=== PATIENT | female | born 1945 | race Caucasian/White ===

== ENCOUNTER → 2017-07-31 07:43 | Outpatient (CLI) | payer MEDICARE, OTHER, SELFPAY ==
[2017-07-31 09:53] LABS: AST(SGOT) 12 U/L (15-37); Alanine Aminotransfer ALT/SGPT 13 U/L (13-56); Albumin, Serum 3.4 g/dL (3.2-5.0); Alkaline Phosphatase 81 U/L (45-117); Bilirubin, Direct 0.15 mg/dL (0.00-0.30); Cholesterol 143 mg/dL (200); Globulin 3.7 g/dL (2.2-4.2); High Density Lipoprotein 66 mg/dL; Protein, Total 7.1 g/dL (6.4-8.2); Triglycerides 99 mg/dL; Very Low Density Lipoprotein 20 mg/dL (5-40)
== END ==
PROVIDERS: Family Provider Family Medicine Geriatric Medicine; PCP Family Medicine Geriatric Medicine; Visit Provider Internal Medicine Cardiovascular Disease
DX: I25.10 Atherosclerotic heart disease of native coronary artery without angina pectoris (principal); E78.5 Hyperlipidemia, unspecified
CPT/HCPCS: 36415; 80061; 80076

== ENCOUNTER → 2017-10-30 15:37 | Outpatient (CLI) | payer MEDICARE, OTHER, SELFPAY ==
--- NOTE | 2017-10-30 15:42 | BD_ITS ---
STUDY: DUAL ENERGY X-RAY ABSORPTIOMETRY / DXA REASON FOR EXAM: Female, 72 years old. Early menopause. Loss of height. TECHNIQUE: Bone Mineral Density (BMD) measurements of lumbar spine and bilateral hips were obtained. COMPARISON: Comparison is made with prior study dated October 26, 2015. FINDINGS: Lumbar Spine (L1-L4): g/cm2 (1.142) / T-score (-0.3) / Z-score (1.4) Findings are suggestive of normal bone density with a low fracture risk. Left Femur Total: g/cm2 (0.760) / T-score (-2.0) / Z-score (-0.5) Left Femoral Neck: g/cm2 (0.779) / T-score (-1.9) / Z-score (-0.1) Right Femur Total: g/cm2 (0.81) / T-score (-1.6) / Z-score (-0.1) Right Femoral Neck: g/cm2 (0.783) / T-score (-1.8) / Z-score (-0.1) The T-Scores on the most recent prior examination were: Lumbar Spine (L1-L4): There has been worsening of bone density since the previous examination. Left Femur Total: which represents a worsening of 4.2%. Right Femur Total: which represents a worsening of 0.7%. BD/Dexa Bone Density Study IMPRESSION: The patient is considered osteopenic as outlined below according to World Devan Organization (WHO) criteria with a moderate fracture risk. There has been worsening of bone density since the previous examination. Reference Information: The T-score is the number of standard deviations above or below the standard which is normal for young adults at their peak bone mineral density. The World Health Organization (WHO) interprets the T-scores as follows: Above -1 Normal bone density Between -1 and -2.5 Osteopenia Equal to / or below -2.5 Osteoporosis As a practical clinical guideline, osteopenia may be graded as follows: Mild -1 through -1.5 Moderate -1.6 through -2.0 Severe -2.1 through -2.4 The Z-score is the number of standard deviations above or below age-matched controls. A Z-score of less than -1.5 would be considered abnormal. References: 1. NIH Osteoporosis and Related Bone Diseases http://www.osteo.org 2. International Society for Clinical Densitometry http://www.iscd.org 3. National Osteoporosis Foundation http://www.nof.org Electronically Signed: Ray Marroquin MD at 15:08 EDT Tel [phone], Service support ,
== END ==
PROVIDERS: Family Provider Family Medicine Geriatric Medicine; PCP Family Medicine Geriatric Medicine; Visit Provider Family Medicine Geriatric Medicine
DX: Z78.0 Asymptomatic menopausal state (principal)
CPT/HCPCS: 77080

== ENCOUNTER → 2018-09-05 09:13 | Outpatient (CLI) | payer MEDICARE, OTHER, SELFPAY ==
[2018-09-05 12:40] LABS: Absolute Lymphocyte Count 1.75 X10^3/ul (0.83-4.51); Absolute Neutrophil Count 3.5 X10^3/uL (2.0-7.7); Basophil# 0.02 X10^3/uL; Basophil% 0.3 % (0-1); Eosinophil# 0.12 X10^3/uL; Eosinophils% 2.1 % (0-5); Hematocrit 40.3 % (37-47); Hemoglobin 12.8 g/dl (12.0-15.0); Lymphocyte # 1.75 X10^3/ul (4.0); Mean Corp Hgb Conc 31.8 g/gl (32-36); Mean Corpuscular Hgb 29.9 pg (27.0-32.0); Mean Corpuscular Volume 94.2 fL (81-99); Mean Platelet Vol. 11.4 fl (6.2-12.0); Monocyte# 0.45 X10^3/uL; Monocyte% 7.7 % (0-10); Neutrophil # 3.48 X10^3/uL (2.7-7.7); Neutrophil % 59.7 % (47-70); Platelet Count 230 K/mm3 (150-450); RBC Distribution Width SD 43.3 fl (35.1-43.9); Red Blood Count 4.28 M/mm3 (4.2-5.4); White Blood Count 5.8 K/mm3 (4.4-11.0)
[2018-09-05 12:44] LABS: POSITIVE COUNT NO; POSITIVE DIFFERENTIAL NO; POSITIVE MORPHOLOGY NO
[2018-09-05 13:23] LABS: ALB/GLOB Ratio 0.9 RATIO (0.9-2.4); AST(SGOT) 15 U/L (15-37); Alanine Aminotransfer ALT/SGPT 17 U/L (13-56); Albumin, Serum 3.3 g/dL (3.2-5.0); Alkaline Phosphatase 84 U/L (45-117); Anion Gap 5 (5-15); BUN 12 mg/dL (7-18); BUN/Creat Ratio 18.6 RATIO (10-20); Calcium,Total 8.5 mg/dL (8.5-10.1); Chloride 109 mmol/L (98-107); Creatinine, Serum 0.64 mg/dL (0.55-1.02); EST Glomerular Filtration Rate 96 mL/min (>60); Est Glom Filt Rate - Afr Amer 117 mL/min (>60); Globulin 3.6 g/dL (2.2-4.2); Glucose 91 mg/dL (74-106); Potassium 4.6 mmol/L (3.5-5.1); Protein, Total 6.9 g/dL (6.4-8.2); Sodium Level 141 mmol/L (136-145); Thyroid Stim Hormone (TSH) 1.02 uIU/mL (0.358-3.74)
== END ==
PROVIDERS: Family Provider Family Medicine Geriatric Medicine; PCP Family Medicine Geriatric Medicine; Visit Provider Family Medicine Geriatric Medicine
DX: E55.9 Vitamin D deficiency, unspecified (principal); I10 Essential (primary) hypertension
CPT/HCPCS: 36415; 80053; 82306; 84443; 85025

== ENCOUNTER → 2018-10-21 15:52 | Outpatient (CLI) | payer MEDICARE, OTHER, SELFPAY ==
[2018-10-21 18:00] LABS: Internal QC Validated? YES +Cl - CLEAR BKGD; Monotest Negative (Negative)
[2018-10-24 08:03] LABS: Mumps Antibody, IgM < 0.80 AU (0.00-0.79); Mumps Antibody,IgG 15.7 AU/mL (Immune >10.9)
== END ==
PROVIDERS: Family Provider Family Medicine Geriatric Medicine; PCP Family Medicine Geriatric Medicine; Visit Provider Family Medicine Geriatric Medicine
DX: M79.10 Myalgia, unspecified site (principal); R53.83 Other fatigue
CPT/HCPCS: 36415; 86308; 86735

== ENCOUNTER → 2018-10-21 16:58 | Outpatient (CLI) | payer MEDICARE, OTHER, SELFPAY ==
--- NOTE | 2018-10-21 17:02 | CT_ITS ---
STUDY: CT SOFT TISSUE NECK WITH CONTRAST REASON FOR EXAM: Female, 73 years old. Cervical lymphadenopathy RADIATION DOSAGE (If Supplied By Facility): CTDIvol = ( 18.55 ) mGy, DLP = ( 583.60 ) mGycm TECHNIQUE: The patient was scanned in a multi-detector CT scanner. High resolution transaxial imaging was performed following intravenous administration of 100mL IV Isovue 300. Sagittal and coronal images were reconstructed. Individualized dose optimization techniques were used for this CT. COMPARISON: None. FINDINGS: There is a 7.2 x 6.5 x 9.4 cm heterogenous soft tissue mass with central calcifications arising from the left lobe of the thyroid gland. There is left to right mass effect on the trachea. There is mass effect on the left common carotid artery and left internal jugular vein. The mass extends into the presacral space at C4-T1 and into the superior mediastinum left of midline. There is a well-circumscribed low-attenuation focus within the right lobe of the thyroid measuring 1.6 x 0.7 x 2.1 cm which may reflect underlying cysts. Normal bilateral parotid glands. Normal bilateral property custodian spaces. Normal bilateral parapharyngeal spaces. The visualized cervical lymph nodes (levels I-) are within normal size limits, and maintain normal morphology. There is no abnormal contrast enhancement. There are peripheral calcifications of the aortic arch and its branches. Normal visualized paranasal sinuses. There is multilevel degenerative changes of the cervical spine. CT/Soft Tissue Neck WITH Contrast IMPRESSION: 7.2 x 6.5 x 9.4 cm soft tissue mass arising from the left lobe of the thyroid gland with mass effect on the trachea. Atherosclerosis. Electronically Signed: Sheron Stevens MD at 17:44 EDT Tel , Service support ,
[2018-10-21 17:26] LABS: CREATININE FINGERSTICK 0.8 mg/dL (0.55-1.02); EGFR FINGERSTICK > 60.0000 mL/min (>60)
== END ==
PROVIDERS: Family Provider Family Medicine Geriatric Medicine; PCP Family Medicine Geriatric Medicine; Referring Provider Family Medicine Geriatric Medicine; Visit Provider Family Medicine Geriatric Medicine
DX: R59.9 Enlarged lymph nodes, unspecified (principal); M79.10 Myalgia, unspecified site; R53.83 Other fatigue
CPT/HCPCS: 36415; 70491; 86308; 86735; Q9967

== ENCOUNTER → 2018-10-22 12:13 | Outpatient (CLI) | payer MEDICARE, OTHER, SELFPAY ==
[2018-10-22 13:18] LABS: T3 Uptake 32 % (30-39); T4 Free Direct 1.05 ng/dL (0.76-1.46); Thyroid Stim Hormone (TSH) 0.54 uIU/mL (0.358-3.74)
== END ==
PROVIDERS: Family Provider Family Medicine Geriatric Medicine; PCP Family Medicine Geriatric Medicine; Visit Provider Family Medicine Geriatric Medicine
DX: E04.9 Nontoxic goiter, unspecified (principal)
CPT/HCPCS: 36415; 84439; 84443; 84479

== ENCOUNTER → 2018-10-24 06:30 | Outpatient (CLI) | payer MEDICARE, OTHER, SELFPAY ==
--- NOTE | 2018-10-24 | FLU_PTH ---
PATIENT: PADMINI GOYAL LOC: [facility] U#:[id number] AGE/SX: 79/F ROOM: RE10/24/[address]: Dr. Josué Villa MD : 1945 BED: DIS: SPEC #: [id number] RECD: 10/24/18 17:40 STATUS: KORIN MARIANNE #: [id number] HALIE: 10/24/18 00:[address]: Josué Villa DEPT: CYTOLOGY RECD BY: Diana Miller ENTERED: 10/25/18 11:22 SP TYPE: Fluid OTHR DR: Dr. Nakul Corbin MD Tissues: Thyroid gland, NOS Procedures: Special Stain Group II Surgery Specimen Level IV Cytospin Fluid HEADER OPERATION: Left neck, thyroid mass PRE-OP DIAGNOSIS: Rapidly growing thyroid mass; consider anaplastic thyroid versus cystic papillary cancer TISSUE SUBMITTED: Left side of neck, thyroid mass DIAGNOSIS CYTOLOGY Left side of neck, thyroid mass, FNA (cytospin and cell block): A few follicular cells with Hurthle cell change and macrophages are noted. See comment. SJ:alexandre 10/28/18 COMMENT The cell block is paucicellular. The specimen is limited in evaluation due to lack of adequate number of follicular cells. Correlation with clinical, radiologic findings and appropriate follow up are necessary. Rebiopsy or excision of the lesion is suggested if clinically indicated. Case has been reviewed in consultation with Dr. Tilley who concurs with the above diagnosis. IDC:AM CYTOLOGY STUDY Slides are reviewed. CYTOLOGY GROSS Received is 50 ml of red cloudy fluid labeled with the patient's name and and designated per the requisition as thyroid mass. Submitted for cytology preparation including cell block. /CC:cc 10/25/18 TC:5 CPT: 82138, 54963
== END ==
PROVIDERS: Family Provider Family Medicine Geriatric Medicine; PCP Family Medicine Geriatric Medicine; Visit Provider Otolaryngology
DX: E04.1 Nontoxic single thyroid nodule (principal)
CPT/HCPCS: 88108; 88305; 88313

== ENCOUNTER → 2018-11-12 08:24 | Outpatient (CLI) | payer MEDICARE, OTHER, SELFPAY ==
[2018-11-11 10:42] VITALS: BMI 32.3
--- NOTE | 2018-11-12 08:25 | ECHOCS_ITS ---
Reason For Study: PRE-OPERATIVE Procedure This was a 2D Doppler, Color Flow transthoracic echocardiogram. Exam performed in department. Left Ventricle Normal size and thickness. The estimated ejection fraction is 65 %. Stage 1 diastolic dysfunction. No regional wall motion abnormalities noted. Right Ventricle Normal size and thickness. Normal systolic function. Atria Normal left atrium. Normal right atrium. Normal atrial septum. Mitral Valve The mitral valve is structurally normal. No prolapse or stenosis seen. Tricuspid Valve Normal tricuspid valve. Trivial tricuspid valve insufficiency. Right ventricular systolic pressure estimated to be 25 mmHg. Aortic Valve Mild diffuse aortic valve thickening. Mild (1+) aortic valve insufficiency. Pulmonic Valve Normal pulmonic valve. Trivial pulmonic valve insufficiency. Great Vessels Normal aortic root. Normal arch. Normal inferior vena cava. Inferior vena cava collapse with sniff. Pericardium/Pleural No pericardial effusion. Medication 22 gauge I.V. with prn adaptor inserted into right arm. Diluted definity 5ml given slow IV push to enhance endocardial definition. MMode/2D Measurements & Calculations LVIDd: 4.7 cm IVSd: 0.79 cm Ao root diam: 3.2 cm LVIDs: 3.3 cm LVPWd: 0.94 cm RVDd: 3.4 cm FS: 30.9 % LAV(MOD-bp): 46.4 ml LVAd ap4: 31.8 cm2 SV(MOD-sp4): 64.8 ml LAV(MOD-bp) Indexed: 24.3 ml/m2 EDV(MOD-sp4): 111.3 ml LAV(MOD-sp2): 43.3 ml EDV(sp4-el): 113.9 ml LAV(MOD-sp4): 47.7 ml LVAs ap4: 18.1 cm2 ESV(MOD-sp4): 46.5 ml ESV(sp4-el): 47.1 ml EF(MOD-sp4): 58.2 % EF(sp4-el): 58.6 % SV(sp4-el): 66.8 ml LA A4 area: 17.8 cm2 LA dimension(2D): 4.0 cm RA A4 area: 15.5 cm2 Time Measurements MV dec time: 0.18 sec Doppler Measurements & Calculations MV E max [place]: 67.5 cm/sec Lat Peak E' [place]: 10.1 cm/sec Med Peak E' [place]: 8.6 cm/sec MV A max [place]: 77.8 cm/sec E/E' lat: 6.7 E/E' med: 7.8 MV E/A: 0.87 Ao V2 max: 140.0 cm/sec AI max [place]: 439.2 cm/sec LV V1 max: 96.4 cm/sec Ao max P.8 mmHg AI max P.2 mmHg LV V1 max P.7 mmHg AI dec slope: 237.5 cm/sec2 AI P1/2t: 541.6 msec PA V2 max: 99.8 cm/sec TR max [place]: 221.9 cm/sec TR max P.7 mmHg Interpretation Summary The estimated ejection fraction is 65 %. Stage 1 diastolic dysfunction. Trivial tricuspid valve insufficiency. Right ventricular systolic pressure estimated to be 25 mmHg. Mild (1+) aortic valve insufficiency. Compared to echo report dated 09/14/2016, no appreciable changes noted. The study was technically difficult. Contrast injection was performed. Ordering Physician: Jamil Massey Referring Physician: LINDSAY LAMBERT Performed By: Marie Lozano RDCS
== END ==
PROVIDERS: Family Provider Family Medicine Geriatric Medicine; PCP Family Medicine Geriatric Medicine; Referring Provider Internal Medicine Cardiovascular Disease; Visit Provider Internal Medicine Cardiovascular Disease
DX: Z01.810 Encounter for preprocedural cardiovascular examination (principal); I25.10 Atherosclerotic heart disease of native coronary artery without angina pectoris; I47.2 Ventricular tachycardia; Z95.1 Presence of aortocoronary bypass graft
CPT/HCPCS: 93306; Q9957; A4216; C8929

== ENCOUNTER → 2018-11-15 13:27 | Outpatient (CLI) | payer MEDICARE, OTHER, SELFPAY ==
[2018-11-11 10:42] VITALS: BMI 32.3
--- NOTE | 2018-11-15 13:29 | STEWCON_ITS ---
Reason For Study: Pre-Op Stress Results Protocol: Dobutamine Stress Echo Maximum Predicted HR: 148 bpm Target HR: 126 bpm % Maximum Predicted HR: 101 % DurationHeart Rate Stage (mm:ss) (bpm) BP Comment Baseline 52 154/67No Chest Pain; Diluted Definity 4 ML Given DSE 10 MCG 4:24 61 164/70No Chest Pain DSE 20 MCG 3:30 113 174/63No Chest Pain DSE 30 MCG 3:00 150 167/62No Chest Pain Recovery 75 161/74No Chest Pain Stress Duration: 10:54 mm:ss Maximum Stress HR: 150 bpm METS: 1 Baseline Echocardiogram Findings The estimated ejection fraction is 65 %. Stress Echo Wall motion Data Resting WM Intermediate WM Stress WM Resting Wall Motion Wall Motion Stress No regional wall motion Mid-Anterior : Mildly abnormalities noted. hypokinetic. Mid-Lateral : Mildly hypokinetic. Mid-anteroseptal : Mildly hypokinetic. EKG Data The baseline ECG displays normal sinus rhythm. The patient was titrated from 10 mcg to a maximun of 30 mcg of dobutamine during the stress. The maximum heart rate attained was 150 beats per minute. This was 101% of maximum predicted heart rate. During dobutamine infusion, there were no ST or T wave changes noted to suggest ischemia. No clinical angina was noted. Interpretation Summary The estimated ejection fraction is 65 %. Mid-Anterior : Mildly hypokinetic Mid-Lateral : Mildly hypokinetic Mid-anteroseptal : Mildly hypokinetic Abnormal, adequate, dobutamine echocardiogram. Positive for ischemia by echocardiographic anterior. Frequent PVCs, ventricular couplets and ventricular triplets during dobutamine which is a nonspecific finding. No anginal symptoms noted. Appropriate blood pressure response to dobutamine. Patient appeared to develop mid anterior, lateral and septal hypokinesis at peak infusion. Final LVEF of 45 to 50%. Decreased poor echo windows requiring Definity agent may affect the evaluation of the images. Test terminated due to target heart rate achieved. Patient was referred to our office for scheduling of heart catheterization prior to her right goiter surgery. No complications. The study was technically difficult. Contrast injection was performed. Ordering Physician: Jamil Massey Referring Physician: Nakul Corbin Chi Performed By: Jaci Sims RDCS, RVT
--- NOTE | 2018-11-15 14:41 | RAD_ITS ---
STUDY: X-RAY CHEST REASON FOR EXAM: Female, 73 years old. Post stress test. TECHNIQUE: PA and lateral chest COMPARISON: None. FINDINGS: Median sternotomy. The lungs are clear, mildly hyperlucent suggesting the possibility of COPD. Correlate any smoking history. There is no effusion, infiltrate or pneumothorax. Normal cardiomediastinal silhouette, jo ann and pleural margins. No acute osseous or upper abdominal process. RAD/Chest PA and Lateral IMPRESSION: No acute cardiopulmonary process. Electronically Signed: Brandon Deal MD at 19:41 EDT Tel , Service support ,
[2018-11-15 16:10] LABS: Hematocrit 40.1 % (37-47); Hemoglobin 12.9 g/dL (12.0-15.0); Mean Corp Hgb Conc 32.2 g/dL (32-36); Mean Corpuscular Hgb 30.7 pg (27.0-32.0); Mean Corpuscular Volume 95.5 fL (81-99); Mean Platelet Vol. 11.4 fl (6.2-12.0); Platelet Count 181 K/mm3 (150-450); RBC Distribution Width CV 13.2 % (11.6-14.6); RBC Distribution Width SD 46.5 fl (35.1-43.9); White Blood Count 7.1 K/mm3 (4.4-11.0)
[2018-11-15 16:19] LABS: BUN 20 mg/dL (7-18); BUN/Creat Ratio 26.3 RATIO (10-20); Chloride 105 mmol/L (98-107); Creatinine, Serum 0.76 mg/dL (0.55-1.02); EST Glomerular Filtration Rate 79 mL/min (>60); Est Glom Filt Rate - Afr Amer 96 mL/min (>60); Glucose 112 mg/dL (74-106); Potassium 3.8 mmol/L (3.5-5.1); Sodium Level 138 mmol/L (136-145)
[2018-11-15 16:20] LABS: Anion Gap 5 (5-15)
[2018-11-15 16:22] LABS: Prothrombin Time (Protime)PT. 12.8 SECONDS (11.7-14.9)
[2018-11-15 16:23] LABS: Partial Thromboplast Time 28.7 Seconds (24.1-36.2)
== END ==
PROVIDERS: Family Provider Family Medicine Geriatric Medicine; PCP Family Medicine Geriatric Medicine; Referring Provider Internal Medicine Cardiovascular Disease; Visit Provider Internal Medicine Cardiovascular Disease
DX: Z01.810 Encounter for preprocedural cardiovascular examination (principal); I25.10 Atherosclerotic heart disease of native coronary artery without angina pectoris; I47.2 Ventricular tachycardia; Z95.1 Presence of aortocoronary bypass graft
CPT/HCPCS: 36415; 71046; 80048; 85027; 85610; 85730; 93017; 93350; J7040; Q9957; A4216; C8928

== ENCOUNTER 2018-11-18 07:41 | Day surgery (SDC) | payer MEDICARE, OTHER, SELFPAY ==
[2018-11-11 10:42] VITALS: BMI 32.3
[2018-11-15 15:35] VITALS: BMI 32.3
[2018-11-17 15:04] VITALS: BMI 31.4
[2018-11-18] VITALS (42 sets, daily range): BP systolic 89–167; BP diastolic 21–65; PULSE 38–87; RESP 12–21; TEMP 36–36.2; O2SAT 93–99; BMI 32.1; BMI 31.4
--- NOTE | 2018-11-18 09:10 | CL.D_ITS ---
Patient Name: PADMINI GOYAL Study Date: 11/18/2018 Performing: Jamil Massey MD Ht: 65 inches 165.1 cm : 1945 Wt: 189.09 lbs 85.77 kg Age: 73 Gender: female BSA: 1.93 PROCEDURE(S) PERFORMED [id number]-[id number]/COR/LV CLINICAL PROFILE AND INDICATIONS Indications: Stable Known CAD, Pre-Operative Evaluation Heart Failure: None Stress/Imaging Date: 11/14/2018Stress Echocardiogram: Positive Intermediate Risk Angina Classification Anginal Classification w/in 2 Weeks: No symptoms CAD Presentations: Other: Dyspnea on exertion, abnormal stress test Comorbidities/Risk Factors: Hypertension Dyslipidemia Prior CABG CONCLUSIONS Normal LV size, wall motion,and systolic function Perserved Left Ventricular systolic function with normal EDP LVEF: by LV gram 65 % Normal Left Ventricular End Diastolic Pressure 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 DESCRIPTION OF PROCEDURE The patient arrived to the procedure lab. The risks and benefits of the procedure as well as a full d escription of our services here and current unavailability of surgical backup were fully explained to the patient and/or their significant other prior to the catheterization. The Timeout was completed, verifying the correct patient and procedure. The patient's procedural site was prepped and draped in the usual fashion. Local anesthetic was given subcutaneously to right groin region with Lidocaine 2%. Using a modified Seldinger technique, arterial access was obtained via the right femoral artery, a 4 Fr sheath was inserted Left Coronary Artery selective angiography was performed in multiple views us ing a 4 Fr. JL5 catheter. Right Coronary Artery selective angiography was then performed in multiple views using a 4 Fr. 3DRC catheter. Left Ventriculography was performed in SAMPSON projection using a 4 Fr . Pigtail catheter. Left Ventriculography was performed in SAMPSON projection using a 4 Fr. Pigtail catheter. CORONARY ANGIOGRAPHY DOMINANCE: Right Dominant LEFT HEART ASSESSMENT Left Ventricular Ejection Fraction: by LV gram 65 % Normal Left Ventricular systolic function LVEDP: 11 mmHg LEFT MAIN: Angiographically normal LEFT ANTERIOR DESCENDING ARTERY: PROX LAD: Mild calcification MID LAD: 75 % Stenosis DIAGONAL 1: Proximal - 65 % Stenosis CIRCUMFLEX ARTERY: Mild luminal irregularities less than 30% RIGHT CORONARY ARTERY: Mild luminal irregularities less than 30% MID RCA: Mild calcification COMPLICATIONS No Complications PROCEDURE MEDICATIONS Oxygen: 2 L/min via nasal cannula Nitro 200 mcg IC 11/18/2018 08:44:40 SUMMARY OF HEMODYNAMIC DATA Time AIR REST ECG 08:11:08 AO 148/52 (81) SA 08:43:01 LV 157/-10, 12 08:54:41 LV 150/-12, 12 08:54:49 LVp 154/-9, 11 08:54:54 AOp 148/54 (91) 08:54:59 Signed By Jamil Massey MD On 11/18/2018 09:24:23 Jamil Massey MD
[2018-11-18 12:51] LABS: ACT Activated Clotting Time 257 sec (74-137)
--- NOTE | 2018-11-18 12:54 | CL.I_ITS ---
Patient Name: PADMINI GOYAL Study Date: 11/18/2018 Performing: Jamil Massey MD Ht: 65 inches 165.1 cm : 1945 Wt: 189.09 lbs 85.77 kg Age: 73 Gender: female BSA: 1.93 PROCEDURE(S) PERFORMED YV67-DRV/COR/LV VM35-ZSS W OR WO PTCA, SINGLE CORONARY ARTERY CLINICAL PROFILE AND CO-MORBIDITIES Indications: Stable Known CAD, Pre-Operative Evaluation Heart Failure: None Stress/Imaging Date: 11/14/2018 Stress Echocardiogram: Positive Intermediate Risk Angina Classification Anginal Classification w/in 2 Weeks: No symptoms CAD Presentations: Other: Dyspnea on exertion, abnormal stress test Comorbidities/Risk Factors: Hypertension Dyslipidemia Prior CABG CONCLUSIONS Normal LV size, wall motion,and systolic function Perserved Left Ventricular systolic function with normal EDP LVEF: by LV gram 65 % Normal Left Ventricular End Diastolic Pressure 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 Successful PCI with PTCA to the ostial DIAG#1 with a 2.0 x 12 balloon; 65%-->20%, no dissection. RECOMMENDATIONS Referred for immediate PCI after loading with asa/plavix Management as per referring Communications Equipment Supervisor d/w results of cath with Dr Villa and he agreed to proceed with PCI and can do goiter surgery on asa /plavix. Highly recommend quitting all tobacco products Follow up with primary customer service advisor Risk factor modification ASA Indefinitley Plavix for at least 12 months Routine post interventional care Refer for Outpatient Cardiac Rehab Manual sheath removal per protocol Follow up with Dr. Massey Manual sheath removal Pt may proceed with thyroid surgery with Dr Villa on 11/22/18 per our previous conversation. Pt is at low risk for non cardiac surgery. Pt must maintain dual anti-platelet meds with asa/plavix through s urgery. DESCRIPTION OF PROCEDURE The patient arrived to the procedure lab. The risks and benefits of the procedure as well as a full d escription of our services here and lack of surgical backup were fully explained to the patient and/o r their significant other prior to the catheterization. The Timeout was completed, verifying the saumya ect patient and procedure. The patient's procedural site was prepped and draped in the usual fashion. Local anesthetic was given subcutaneously to right groin region with Lidocaine 2%. Using a modified Seldinger technique, arterial access was obtained via the right femoral artery, a 4Fr sheath was inse rted. Left Coronary Artery selective angiography was performed in multiple views using a 4 Fr. JL5 c atheter. Right Coronary Artery selective angiography was then performed in multiple views using a 4 F r. 3DRC catheter. Left Ventriculography was performed in SAMPSON projection using a 4 Fr. Pigtail cathete r. Left Ventriculography was performed in SAMPSON projection using a 4 Fr. Pigtail catheterThe images were reviewed and options discussed. A decision was then made to proceed with an Intervention, IVUS or other adjunct procedure. Arterial sheath was exchanged for a 6 Fr Sheath. EBU 3.5 Guide catheter was inserted and engaged into the LCA. BMW Kiron (1) Guide wire was advanced to the LAD. BMW Kiron (2) Guide wire was advanced to the 1st Diagonal. Emerge 2.0 x 12 Balloon catheter was inserted. Balloon catheter was adv anced across lesion in the first diagonal, ostial. PTCA balloon inflated at 6 atms for 9 secs. Emerge 2.0 x 12 Balloon catheter was inserted. Balloon catheter was advanced across lesion in the LAD, mid. PTCA balloon inflated at 6 atms for 6 secs. PTCA balloon inflated at 6 atms for 8 secs. Angiogram pe rformed post balloon dilatation. Synergy 2.25 x 16 Drug Eluting stent was inserted. Drug Eluting sten t was advanced across the lesion in the LAD, mid. Angiogram performed pre stent deployment. Angiogram performed post stent deployment. NC Emerge 2.5 x 8 Balloon catheter was inserted. Balloon catheter w as advanced across lesion in the LAD, mid. Angiogram performed post balloon dilatation. PTCA balloon inflated at 14 atms for 10 secs. Angiogram performed post balloon dilatation. The akash rial sheath was sutured in place with heparinized normal saline under pressure. The arterial sheath w as sutured in place and capped CORONARY ANGIOGRAPHY DOMINANCE: Right Dominant LEFT HEART ASSESSMENT Left Ventricular Ejection Fraction: by LV gram 65 % Normal Left Ventricular systolic function LVEDP: 11 mmHg LEFT MAIN: Angiographically normal LEFT ANTERIOR DESCENDING ARTERY: PROX LAD: Mild calcification MID LAD: 75 % Stenosis DIAGONAL 1: Proximal - 65 % Stenosis CIRCUMFLEX ARTERY: Mild luminal irregularities less than 30% RIGHT CORONARY ARTERY: Mild luminal irregularities less than 30% MID RCA: Mild calcification INTERVENTION INFORMATION LESION SITE: LAD (Mid) Lesion Complexity: Non-High/Non-C, lesion at bifurcation: Yes, thrombus present: No, lesion length: 1 6 mm, culprit lesion: Yes Pre Stenosis: 75 % Pre intervention GIOVANA flow: 3 PROCEDURE: Drug Eluting Stent with pre and post dilatation Post Stenosis: 0 % Post intervention GIOVANA flow: 3 Lesion Devices: Man .014 BMW Kiron Straight 190cm Man .014 BMW Kiron Straight 190cm Medtronic 6 Fr EBU3.5 100cm Guide Catheter Roberto Sci EMERGE MR 2.00x12 BALLOON Roberto Sci Synergy MR HIGINIO 2.25x16 Roberto Sci NC EMERGE MR 2.50x08 BALLOON COMPLICATIONS No Complications PROCEDURE MEDICATIONS Oxygen: 2 L/min via nasal cannula Baby Aspirin (81mg) 4 Tabs PO @ 11/18/2018 09:20:38 Heparin 6000 unit(s) IV 11/18/2018 12:13:33 Nitro 200 mcg IC 11/18/2018 08:44:40 Nitro 200 mcg IC 11/18/2018 08:44:40 Nitro 200 mcg IC 11/18/2018 12:26:23 Nitro glycerin 25mg / 250ml D5W @ 5 mcg/min IV started 11/18/2018 12:35:29 Plavix 600 mg PO 11/18/2018 09:20:55 IV Bolus: .9 NaCl 400ml total 11/18/2018 12:14:12 SUMMARY OF HEMODYNAMIC DATA Time AIR REST ECG 08:11:08 AO 148/52 (81) SA 08:43:01 LV 157/-10, 12 08:54:41 LV 150/-12, 12 08:54:49 LVp 154/-9, 11 08:54:54 AOp 148/54 (91) 08:54:59 AO 169/67 (106) 12:15:55 Signed By Jamil Massey MD On 11/18/2018 12:54:14 Jamil Massey MD
--- NOTE | 2018-11-18 12:56 | EKG12_ITS ---
Test Reason : POST PCI Blood Pressure : / mmHG Vent. Rate : 072 BPM Atrial Rate : 072 BPM P-R Int : 186 ms QRS Dur : 090 ms QT Int : 430 ms P-R-T Axes : 072 054 065 degrees QTc Int : 470 ms Sinus rhythm with marked sinus arrhythmia Nonspecific ST abnormality Abnormal ECG Confirmed by CASIE POOLE, SLY ([id number]), features editor JO ANN SIMEON ([id number]) on 11/26/2018 1:08:48 PM Referred By: Jamil Massey Confirmed By:SLY JASON MD
--- NOTE | 2018-11-18 13:26 | DCINST_ITS ---
Discharge Diet: Low fat/ Low Cholesterol Discharge Activity: Return to Normal Activity May shower in (days): 1 - No tub baths for 5 days May resume sexual activity in: 1-2 weeks Lifting Restrictions: Do not lift anything greater than 10 pounds for 3 days Call your doctor if your incision/area has: Continuous Slow Oozing, Sudden Increased Bleeding, Increased Pain/ Swelling, Increased Redness, Foul Smelling Discharge, Swelling at the incision site Call your doctor if you observe: Fever of 101 or Higher, Shortness of breath, Chest pain Remove Dressing in (days):: 1 Cleanse incision/area with: Soap & Water Additional Instructions: You will continue with Aspirin and Plavix therapy. If anyone asks you to stop your Plavix please call the [facility] at [phone]. You will remain on Plavix for at least one year. You are scheduled for an office appointment with Dr. Massey on 12/02/2018 at 1:45 PM. You were also started on a new medication for heart disease and blood pressure control. This is called losartan. This should be taken daily. Please continue to monitor your blood pressure. Two prescriptions were sent to your local pharmacy, [email or web address]. This was Plavix 75 mg p.o. daily and losartan 25 mg p.o. daily. If you would like 90-day supply sent to mail in pharmacy, please let our office know. Allergies/Adverse Reactions: Allergies crab Allergy (Verified 11/11/18 10:43) Anaphylaxis Sulfa (Sulfonamide Antibiotics) Allergy (Verified 11/11/18 10:43) Hives sulfamethoxazole [From Bactrim] Allergy (Verified 11/11/18 10:43) Hives trimethoprim [From Bactrim] Allergy (Verified 11/11/18 10:43) Hives acetaminophen [From Vicodin] Adverse Reaction (Verified 11/11/18 10:43) Upset Stomach hydrocodone [From Vicodin] Adverse Reaction (Verified 11/11/18 10:43) Upset Stomach Medications to take at Discharge calcium carbonate 600 mg(1,500 mg)-vitamin D3 800 unit chewable tablet 1 tab PO BID tab 07/28/17 gabapentin 300 mg capsule 900 mg PO BID cap 07/28/17 carvedilol 6.25 mg tablet 6.25 mg PO BID #180 tab 04/23/18 simvastatin 20 mg tablet 20 mg PO QPM #90 tab 04/23/18 Ergocalciferol [Vitamin D] 50,000 unit PO QMONTH 11/08/18 Omeprazole [Prilosec] 20 mg PO DAILY 11/08/18 Pregabalin [Lyrica] 75 mg PO BID 11/08/18 biotin 5 mg capsule 5 mg PO DAILY 11/11/18 Aspirin E.C. [Ecotrin] 81 mg PO DAILY@0800 tab 11/19/18 clopidogrel 75 mg tablet 75 mg PO DAILY #30 tab 11/19/18 losartan 25 mg tablet 25 mg PO DAILY 30 Days #30 tab 11/19/18 The following prescriptions were given: losartan 25 mg tablet 25 mg PO DAILY 30 Days #30 tab Transmission Status: Sent to [facility] [address] Primary Care Physician: Nakul Corbin Chi, MD [Primary Care Provider] - Test Results: Test results from this visit will be discussed in further detail at your follow- up appointment, if applicable. Please Follow Up With: Dr. Massey When: 12/02/2018 at 1:45 PM Proposed Discharge Date: 11/19/18 Cardiac Rehabilitation Info Cardiac Rehabilitation Program Information: Cardiac Rehabilitation is important for patients like you who are recovering from a heart problem. Cardiac rehabilitation programs are recognized as integral to the continued care of the patient with coronary heart disease. The cardiac rehabilitation program is designed to optimize a patient's physical, psychological, and social functioning. Health resident care supervisor work in cardiac rehabilitation programs and assist you with getting the treatments you need to get stronger and healthier - like exercise, healthy eating habits, and medications. Cardiac rehabilitation has been show to help people with heart problems live longer and have better life enjoyment than people who do not go to cardiac rehabilitation. Please contact the Cardiac Rehabilitation Program at [facility] at in two weeks if you have not heard from them.
--- NOTE | 2018-11-18 13:33 | NURSING ---
Addendum entered by Bethany Dixon 11/18/18 13:37: Occurred at 1315 Original Note: Rec'd patient from labeler. Bedside report and groin check done. Sheath to rt groin, some bruising noted to site. Feels slightly firm however when comparing to LT groin it appears to be the patient's normal anatomy. PT denies any pain or discomfort w/ palpation to RT groin. No bleeding noted. Pedal pulses normal.
[2018-11-18] MEDS: Nitroglycerin Infusion 250 ML 3 MG IV (13:44)
[2018-11-18] MEDS: 0.9% Normal Saline 1,000 ML 150 ML IV (13:49)
--- NOTE | 2018-11-18 13:54 | CRPHASE1 ---
Patient Communication Former Patient:: Phase II PHII Cardiac Rehab Discussed with Patient:: Yes Guide to Cardiac Rehab Given to Patient:: Yes Cardiac Rehab Facility Choice List Given to Patient:: Yes Choice Program [facility] PHII:: Communication Given to CR, Refer to [facility] Boiler House Mechanic:: Jamil Massey PCP:: Nakul Corbin Chi Refer Phase II Cardiac Rehab:: Yes Risk Factors/Lifestyle Smoking Status: Never smoker Hx Hypertension: Yes Hx Dyslipidemia: Yes Height: 5 ft 5 in Weight:: 189 lb BMI: 31.4 Post-Menopausal: Yes Family History: Family History (Last Reviewed 11/08/18 @ 09:08 by Trupti Dhillon) Father Myocardial infarction Phase I Education Given On:: [place], Nutrition, Antiplatelet medication, CHF, Smoking cessation, Diabetes - Type I, Diabetes - Type II Issues Affecting Care:: Physical - pt states she is scheduled for thyroidectopy in approx 1 week Knowledge of Condition:: Yes Medical/Surgical History CAD:: Yes Hypertension:: Yes Dyslipidemia:: Yes Arrhythmias:: Yes - paroxysmal v tach? Arthritis:: Yes Thyroid:: Yes - scheduled for thyroidectomy Depression:: Yes CABG: Yes PTCA:: Yes Discharge/Home/Social Eval Discharge Disposition: Home Cardiac Rehabilitation Info Cardiac Rehabilitation Program Information: Cardiac Rehabilitation is important for patients like you who are recovering from a heart problem. Cardiac rehabilitation programs are recognized as integral to the continued care of the patient with coronary heart disease. The cardiac rehabilitation program is designed to optimize a patient's physical, psychological, and social functioning. Health acute care nurse practitioner work in cardiac rehabilitation programs and assist you with getting the treatments you need to get stronger and healthier - like exercise, healthy eating habits, and medications. Cardiac rehabilitation has been show to help people with heart problems live longer and have better life enjoyment than people who do not go to cardiac rehabilitation. Please contact the Cardiac Rehabilitation Program at [facility] at in two weeks if you have not heard from them.
--- NOTE | 2018-11-18 13:59 | CRPH1.INSTRU ---
General Education CAD and cardiac anatomy and function:: Not instructed Explanation of diagnoses and procedures:: Not instructed Sign/Symptoms of SC:: Not instructed Antiplatelet therapy: Patient communicates acknowledgment, Needs reinforcement Proper use of NTG-SL: Not instructed Emergency procedures and activation of EMS: Patient communicates acknowledgment, Needs reinforcement Compliance of all prescribed medications: Patient communicates acknowledgment, Needs reinforcement Smoking Patient Nicotine/Smoking Risk Factors Are:: Never smoked Dyslipidemia Recommendations Include:: Lipid profile not available Overweight/Obesity Patient Overweight/Obesity Risk Factors Are:: Obesity - > or = 30 Recommendations Include:: Weight loss of 5-10%, Reduced calorie diet, Exercise 5-7 times/week Overweight/Obesity:: Not instructed Hypertension Recommendations Include:: Maintain BP <130/85, BP <130/80 if diabetic, DASH dietary guidelines, Decrease/maintain normal body weight, Moderation of ETOH Hypertension:: Not instructed Heart Disease Patient Heart Disease Risk Factors Are:: Family history of heart disease < 65 years old Heart Disease Response Code:: Not instructed Diabetes Patient Diabetes Risk Factors Are:: No documented hx of diabetes Metabolic Syndrome Metabolic Syndrome Response Code:: Not instructed Sedentary Sedentary Response Code:: Not instructed Stress Stress Response Code:: Not instructed
[2018-11-18 15:01] LABS: ACT Activated Clotting Time 164 sec (74-137)
[2018-11-18] MEDS: Carvedilol 6.25 MG Tablet PO (21:18)
[2018-11-18] MEDS: Gabapentin 300 MG Capsule 900 MG PO (21:18)
[2018-11-18] MEDS: Atorvastatin Calcium 20 MG Tablet PO (21:18)
[2018-11-18] MEDS: Pregabalin 75 MG Capsule PO (21:18)
[2018-11-18 21:26] LABS: Bedside Glucose 132 mg/dL (70-110)
[2018-11-19] VITALS (13 sets, daily range): BP systolic 100–133; BP diastolic 32–55; PULSE 46–69; RESP 13–18; TEMP 36.5–36.9; O2SAT 96–99
[2018-11-19 03:25] LABS: Hematocrit 36.6 % (37-47); Hemoglobin 11.9 g/dL (12.0-15.0); Mean Corp Hgb Conc 32.5 g/dL (32-36); Mean Corpuscular Volume 95.3 fL (81-99); Mean Platelet Vol. 10.9 fl (6.2-12.0); Platelet Count 158 K/mm3 (150-450); RBC Distribution Width CV 13.3 % (11.6-14.6); RBC Distribution Width SD 46.3 fl (35.1-43.9); Red Blood Count 3.84 M/mm3 (4.2-5.4); White Blood Count 6.7 K/mm3 (4.4-11.0)
[2018-11-19 03:41] LABS: ALB/GLOB Ratio 0.9 RATIO (0.9-2.4); AST(SGOT) 14 U/L (15-37); Alanine Aminotransfer ALT/SGPT 16 U/L (13-56); Albumin, Serum 2.9 g/dL (3.2-5.0); Alkaline Phosphatase 74 U/L (45-117); Anion Gap 6 (5-15); BUN 14 mg/dL (7-18); BUN/Creat Ratio 23.8 RATIO (10-20); Calcium,Total 8.3 mg/dL (8.5-10.1); Chloride 110 mmol/L (98-107); Creatinine, Serum 0.59 mg/dL (0.55-1.02); EST Glomerular Filtration Rate 107 mL/min (>60); Est Glom Filt Rate - Afr Amer 129 mL/min (>60); Estimated Creatinine Clearance 45.76 ml/min; Globulin 3.2 g/dL (2.2-4.2); Glucose 91 mg/dL (74-106); Potassium 4.2 mmol/L (3.5-5.1); Protein, Total 6.1 g/dL (6.4-8.2); Sodium Level 143 mmol/L (136-145)
--- NOTE | 2018-11-19 09:25 | PCM.PN.CARD ---
Subjectve: Patient doing very well this morning. Right groin is clean/dry/intact although small phimosis on surface. No hematoma, no tenderness. No bruits noted. She denies any chest pain. Telemetry negative. EKG shows normal sinus rhythm, no acute changes. Hemoglobin and creatinine are within nominal limits. Objective: Vital Signs Temp Pulse Resp BP Pulse Ox 98.0 F 46 L 13 132/38 H 97 11/19/18 04:00 11/19/18 06:00 11/19/18 06:00 11/19/18 06:00 11/19/18 06:00 Oxygen Delivery Method Room Air Weight: 191 lb 12.835 oz Body Mass Index (BMI) 32.1 Intake and Output for Last 24 Hours 11/17/18 11/18/18 11/19/18 23:59 23:59 23:59 Intake Total 1474.7 / 1474.7 100 / 100 Output Total 750 / 750 Balance 724.7 / 724.7 100 / 100 General: Awake, Alert, Oriented x 3 HEENT: PERRL, EOMI, Sclera Non Icteric Neck: Supple, Good ROM, No Lymph Node Enlargement Lungs: Clear to auscultation Cardiovascular: Regular Rhythm, Normal S1, Normal S2, No Murmurs, No Rubs, No Gallops Vascular: No Carotid Bruits, Normal Femoral Pulses, Normal Radial Pulses, Normal Dorsalis Pedal Pulse, Normal Posterior Tibial Pulses Abdomen: Bowel Sounds Present, Soft, Non Tender, No HSM, No Organomegaly Extremities: No Cyanosis, No Clubbing, No edema Neurological: No Focal Motor or Sensory Deficit 11/19/18 03:15: WBC 6.7, RBC 3.84 L, Hgb 11.9 L, Hct 36.6 L, MCV 95.3, MCH 31.0, MCHC 32.5, Plt Count 158, MPV 10.9 11/19/18 03:15: Sodium 143, Potassium 4.2, Chloride 110 H, Carbon Dioxide 27.0, Anion Gap 6, BUN 14, Creatinine 0.59, Est GFR (MDRD) Af Amer 129, Est GFR (MDRD) Non-Af 107, BUN/Creatinine Ratio 23.8 H, Glucose 91, Calcium 8.3 L, Total Bilirubin 0.40 Rhythm: EKG: ECHO: Stress Test: Cardiac Cath: PCI: CT Surgery: Holter monitor: EPS: PPM: CXR: Chest CT Scan: Medical Necessity - Tobacco Use Smoking Status: Never smoker Assessment/Plan 1. Coronary artery disease: Patient status post angioplasty and drug-eluting stenting to her mid LAD with an excellent result. Patient had pre-stent probe of the ostium of her diagonal with an excellent result. No additional stenting or balloon angioplasty of the diagonal was required. Her right groin is clean/dry/intact. Patient will need to continue baby aspirin and Plavix through her thyroid surgery which is scheduled for this Sunday. I conferred with Dr. Villa prior to angioplasty to make sure that it was okay for dual anti-platelet therapy to be continued through her surgery and he agreed. She will continue antihypertensive medications as outlined in the [facility]. 2. Hyperlipidemia: Continue Lipitor. Repeat lipid profile after cardiac rehab. 3. The patient will be enrolled in cardiac rehab going forward after her thyroid surgery is been completed. Patient may be discharged home today. Code Visit Inpatient E&M: 50056 Subs Hosp L2
[2018-11-19] MEDS: Pantoprazole Sodium 20 MG Tablet PO ×2 (09:39→09:40)
[2018-11-19] MEDS: Gabapentin 300 MG Capsule 900 MG PO (09:39)
[2018-11-19] MEDS: Losartan Potassium 25 MG Tablet PO (09:39)
[2018-11-19] MEDS: Aspirin E.C. 81 MG Tablet PO (09:39)
[2018-11-19] MEDS: Carvedilol 6.25 MG Tablet PO (09:39)
[2018-11-19] MEDS: Clopidogrel Bisulfate 75 MG Tablet PO (09:39)
[2018-11-19] MEDS: Pregabalin 75 MG Capsule PO (09:42)
--- NOTE | 2018-11-19 10:00 | EKG12_ITS ---
Test Reason : AM EKG Blood Pressure : / mmHG Vent. Rate : 050 BPM Atrial Rate : 050 BPM P-R Int : 148 ms QRS Dur : 092 ms QT Int : 474 ms P-R-T Axes : 075 065 070 degrees QTc Int : 432 ms Sinus bradycardia Otherwise normal ECG When compared with ECG of 18-NOV-2018 13:21, MANUAL COMPARISON REQUIRED, DATA IS UNCONFIRMED Confirmed by BUBBA MASSEY ([id number]), business editor JO ANN SIMEON ([id number]) on 11/25/2018 2:07:39 PM Referred By: Bubba Massey Confirmed By:BUBBA MASSEY
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
== END 2018-11-19 10:09 | disposition home or self-care (01) ==
LOC: CLSP 07:42 → ICU 09:09
PROVIDERS: Family Provider Family Medicine Geriatric Medicine; PCP Family Medicine Geriatric Medicine; Referring Provider Internal Medicine Cardiovascular Disease; Visit Provider Internal Medicine Cardiovascular Disease
DX: I25.10 Atherosclerotic heart disease of native coronary artery without angina pectoris (principal); I10 Essential (primary) hypertension; E78.5 Hyperlipidemia, unspecified; E07.9 Disorder of thyroid, unspecified; M79.7 Fibromyalgia; E66.9 Obesity, unspecified; Z68.32 Body mass index [BMI] 32.0-32.9, adult; Z95.1 Presence of aortocoronary bypass graft; Z95.5 Presence of coronary angioplasty implant and graft; Z79.82 Long term (current) use of aspirin; Z79.02 Long term (current) use of antithrombotics/antiplatelets; Z79.899 Other long term (current) drug therapy
CPT/HCPCS: 80053; 82962; 85027; 85347; 92928; 93005; 93458; J7030; J7040; Q9967; C1725; C1769; C1874; C1887; C1894; C9600; J1327

== ENCOUNTER 2018-11-22 15:36 | Observation (INO) | payer MEDICARE, OTHER, SELFPAY ==
[2018-11-18 13:44] VITALS: BMI 32.1
[2018-11-18 13:59] VITALS: BMI 31.4
[2018-11-22] VITALS (11 sets, daily range): BP systolic 96–152; BP diastolic 54–66; PULSE 65–88; RESP 14–18; TEMP 35.3–37.1; O2SAT 92–98; BMI 31.1
--- NOTE | 2018-11-22 | THYROID_PTH ---
PATIENT: PADMINI GOYAL LOC: MS3 U#:[id number] AGE/SX: 73/F ROOM: [facility] [place] RE11/22/[address]: Dr. Josué Villa MD : 1945 BED: 1 DIS: 11/23/2018 SPEC #: [id number] RECD: 11/22/18 14:32 STATUS: KORIN MARIANNE #: [id number] HALIE: 11/22/18 00:[address]: Josué Villa DEPT: SURGICAL PATHOLOGY RECD BY: Simi Russell ENTERED: 11/22/18 15:00 SP TYPE: THYROID OTHR DR: Dr. Nakul Corbin MD Tissues: A - Thyroid gland, NOS B - Thyroid isthmus Procedures: Frozen Section (charge) Frozen Section Add'l ([facility]) Surgery Specimen Level V HEADER OPERATION: Surgical excision substernal goiter, thyroidectomy, frozen section PRE-OP DIAGNOSIS: Mass of thyroid gland TISSUE SUBMITTED: A - Massive left substernal goiter, frozen section, B - Right lobe and isthmus FROZEN SECTION DIAGNOSIS A. Mass of thyroid glands, excision: H?rthle cell nodule. AM:alexandre 11/22/18 Case has been reviewed in consultation with Dr. Galvez who concurs with the above diagnosis. IDC:LYNDA MICROSCOPIC DIAGNOSIS A. 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 B. Right lobe and isthmus, lobectomy and isthmusectomy: Colloid nodules with focal cystic change. AM:alexandre 11/26/18 COMMENT Reference is made to the patient's thyroid mass, fine needle aspiration ([id number]) in which follicular cells with H?rthle cell change were identified. Case has been reviewed in consultation with Dr. Galvez who concurs with the above diagnosis. IDC:LYNDA MICROSCOPIC DESCRIPTION Slides are reviewed. GROSS DESCRIPTION A - Received fresh for frozen section diagnosis labeled with the patient's name is a specimen designated massive left substernal goiter. The specimen consists of a nodular piece of pink-red nodular tissue weighing 131.4 gm and measuring 9 x 7 x 4 cm. The specimen could not be oriented and the external surface is inked black. No external parathyroid tissue is identified. Serial sections reveal pink-red solid gelatinous cut surfaces. No well-defined nodule is noted. Three sections in two cassettes are submitted for frozen section diagnosis. More sections will be submitted after additional fixation. / SJ:alexandre 11/22/18 Additional field support representative sections are submitted in cassettes 3-10. / AM: 11/25/18 B - Received in fixative is one container labeled with the patient's name and designated right lobe and isthmus. The specimen consists of a right lobe of thyroid with attached isthmus. The specimen as an aggregate weighs 16.2 gm. The right lobe measures 5.5 x 3 x 3 cm. The isthmus measures 3.5 x 2.6 x 1?cm. The specimen is differentially inked as follows: isthmus - orange, right lobe - green. The entire posterior surface of the specimen is inked in black ink. Serial sections of the right lobe reveal a cyst containing gelatinous material in the superior half of the gland. The cyst measures 2.2 x 1.5 cm. The remainder of the surface is light leon in color. [place] sections are submitted in ten cassettes as?follows: 1 - isthmus margin of resection, 2-5 - cyst with surrounding thyroidal parenchyma, 68??field support representative sections of uninvolved thyroidal parenchyma, 9 & 10 - field support representative sections of uninvolved isthmus. / AM: 11/25/18 TC:1 CPT: 00882 x2, 10941, 37541
--- NOTE | 2018-11-22 10:56 | EKG12_ITS ---
Test Reason : PREOP Blood Pressure : / mmHG Vent. Rate : 056 BPM Atrial Rate : 056 BPM P-R Int : 154 ms QRS Dur : 090 ms QT Int : 438 ms P-R-T Axes : 062 036 063 degrees QTc Int : 422 ms Sinus bradycardia Otherwise normal ECG When compared with ECG of 19-NOV-2018 05:21, MANUAL COMPARISON REQUIRED, DATA IS UNCONFIRMED Confirmed by BUBBA FOREMAN ([id number]), photography editor JO ANN SIMEON ([id number]) on 11/28/2018 2:43:27 PM Referred By: Josué Villa Confirmed By:BUBBA FOREMAN
[2018-11-22 11:28] LABS: Anion Gap 4 (5-15); BUN 19 mg/dL (7-18); BUN/Creat Ratio 28.1 RATIO (10-20); Calcium,Total 8.7 mg/dL (8.5-10.1); Chloride 107 mmol/L (98-107); Creatinine, Serum 0.68 mg/dL (0.55-1.02); EST Glomerular Filtration Rate 91 mL/min (>60); Est Glom Filt Rate - Afr Amer 110 mL/min (>60); Glucose 94 mg/dL (74-106); Potassium 4.2 mmol/L (3.5-5.1); Sodium Level 140 mmol/L (136-145)
--- NOTE | 2018-11-22 15:27 | OP.PCM_ITS ---
Problem List (1) Substernal thyroid goiter Status: Chronic Report of Operation Date of Procedure: 11/22/18 Pre-Operative Diagnosis: Substernal massive goiter Post-Operative Diagnosis: Same Surgery/Procedure Performed:: Total substernal thyroidectomy by cervical approach Description of Surgical Findings:: Soha is a 73-year-old female present for evaluation of a very large substernal goiter with a large dominant left nodule. CT scanning showed significant tracheal deviation and extension of the substernal goiter into the upper mediastinum. She reports that this mass developed promptly over a 2-week course and given this history needle biopsy was performed to exclude the possibility of anaplastic thyroid carcinoma. Biopsy did not show suggestion of a malignant process but surgical excision for relief of mass-effect as well as definitive identification was advised and she was agreeable to proceed. Preoperative cardiac evaluation revealed significant coronary artery disease which was treated with stent prior to surgery. The risks, alternatives, potential complications, and benefits were discussed at length and any questions answered to the patient and/or caregiver's satisfaction. Witnessed informed consent was obtained in the office, and the patient and/or caregiver was agreeable to proceed. Procedure went as follows: The patient was identified in the preoperative holding and brought to the operating room, placed under general anesthesia and intubated with a neuromonitoring tube. The grounding electrodes were then placed on the chest and confirmed to be operational in accordance with the vehicle trimmer's directions to allow for recurrent laryngeal nerve monitoring. The neck was then prepped and draped in usual sterile fashion and the planned skin incision was marked 2 finger breadths above the sternal notch with a marking pen. The incisional line was then injected with 1% lidocaine with 100,000 epinephrine for a total of 6 mL. After allowing for vasoconstriction, a 15 blade scalpel was used to make an incision 10 cm in length through the skin and subcutaneous tissues and platysma. A subplatysmal flap was then elevated superiorly and inferiorly to allow for placement of the self-retaining thyroid retractor. The strap muscles were then divided in the midline and beginning on the left side the thyroid lobe dissected in a sub-capsular fashion. There is noted to be a massive dominant nodule extending into the upper chest below the clavicles. This was dissected free from its underlying capsule with blunt finger dissection delivering it up into the neck. Once the vascular pedicle could be identified the inferior, middle, and superior thyroid vessels were individually clamped and ligated with a combination of 3-0 silk sutures and va scular clips. The parathyroid glands were identified along the inferior vascular pedicle and preserved. The recurrent laryngeal nerve was also identified and followed to its nerve entry point and the thyroid gland dissected free of its attachments to the trachea at Broyle's ligament. This was then transected at the isthmus and sent for pathologic evaluation. Attention was then turned to the contralateral side where similar dissection was carried out and completed, again with preservation of the laryngeal nerve and parathyroid glands. The wound bed was then irrigated saline solution and e xamined for sites of bleeding. No significant bleeding was encountered and fibrillar sheeting was placed along the wound bed for additional hemostasis. #7 flat drains were then placed into each tracheoesophageal groove and brought out through separate stab incisions in the neck and secured with 3-0 silk sutures. The strap muscles were then re-approximated in the midline with a running 3-0 Vicryl suture followed by interrupted 3-0 Vicryl sutures to close the platysma and subcutaneous tissues. A 5-0 Monocryl was then used to close the skin followed by Steri-Strips completing the procedure. The patient was then returned to anesthesia, revived and extubated having tolerated the procedure well. Type of Anesthesia:: General Anesthesiologist: Michael Jose Special Medications: none Specimen's removed: substernal goiter Drains: #7 flat ERIKA Estimated Blood Loss (mL): 150 mL Fluids Replaced: 1800 mL Grafts/Implants Used: none - Complications none - Admit VTE Documentation VTE Present on Admission: No VTE Mechan Device Prophylaxis: SCD's VTE Pharm Prophylaxis ordered?: No
--- NOTE | 2018-11-22 15:34 | DCINST_ITS ---
- Discharge Diagnoses Current Active Problems: Current Active and Chronic Problems (Last Updated 11/19/18 @ 10:19 by Priya Rose) Substernal thyroid goiter (Chronic) You will use the following diet at home:: Regular Discharge Activity: Return to Normal Activity, May not drive while taking narcot ic pain medications. Call your doctor if your incision/area has: Increased Pain/ Swelling, Increased Redness, Foul Smelling Discharge Call your doctor if you observe: Fever of 101 or Higher, Uncontrolled pain Cleanse incision/area with: Do not get Incision Wet Allergies/Adverse Reactions: Allergies crab Allergy (Verified 11/11/18 10:43) Anaphylaxis Sulfa (Sulfonamide Antibiotics) Allergy (Verified 11/11/18 10:43) Hives sulfamethoxazole [From Bactrim] Allergy (Verified 11/11/18 10:43) Hives trimethoprim [From Bactrim] Allergy (Verified 11/11/18 10:43) Hives hydrocodone [From Vicodin] Adverse Reaction (Verified 11/11/18 10:43) Upset Stomach Medications to take at Discharge calcium carbonate 600 mg(1,500 mg)-vitamin D3 800 unit chewable tablet 1 tab PO BID tab 07/28/17 gabapentin 300 mg capsule 900 mg PO BID cap 07/28/17 carvedilol 6.25 mg tablet 6.25 mg PO BID #180 tab 04/23/18 simvastatin 20 mg tablet 20 mg PO QPM #90 tab 04/23/18 Ergocalciferol [Vitamin D] 50,000 unit PO QMONTH 11/08/18 Omeprazole [Prilosec] 20 mg PO DAILY 11/08/18 Pregabalin [Lyrica] 75 mg PO BID 11/08/18 biotin 5 mg capsule 5 mg PO DAILY 11/11/18 Aspirin E.C. [Ecotrin] 81 mg PO DAILY@0800 tab 11/19/18 clopidogrel 75 mg tablet 75 mg PO DAILY #30 tab 11/19/18 losartan 25 mg tablet 25 mg PO DAILY 90 Days #90 tab 11/21/18 Primary Care Physician: Nakul Corbin Chi, MD [Primary Care Provider] - Test Results: Test results from this visit will be discussed in further detail at your follow- up appointment, if applicable. Please Follow Up With: Josué Villa MD When: 2 weeks
--- NOTE | 2018-11-22 15:50 | SUR.PHASEI ---
pt has 5 toes amputated from the right foot
--- NOTE | 2018-11-22 15:59 | EKG12_ITS ---
Test Reason : PREOP Blood Pressure : / mmHG Vent. Rate : 070 BPM Atrial Rate : 070 BPM P-R Int : 136 ms QRS Dur : 088 ms QT Int : 430 ms P-R-T Axes : 062 044 084 degrees QTc Int : 464 ms Sinus rhythm with Premature atrial complexes Nonspecific ST and T wave abnormality Abnormal ECG When compared with ECG of 22-NOV-2018 11:27, MANUAL COMPARISON REQUIRED, DATA IS UNCONFIRMED Confirmed by BUBBA FOREMAN ([id number]), editor index JO ANN SIMEON ([id number]) on 11/28/2018 2:43:44 PM Referred By: Josué Villa Confirmed By:BUBBA FOREMAN
[2018-11-22 16:33] LABS: Calcium,Total 8.3 mg/dL (8.5-10.1)
[2018-11-22] MEDS: Lactated Ringers 1,000 ML 100 ML IV (17:22)
[2018-11-22] MEDS: Carvedilol 6.25 MG Tablet PO (21:27)
[2018-11-22] MEDS: Calcium Carb/Vitamin D 1 TABLET Tablet PO (21:27)
[2018-11-22] MEDS: Atorvastatin Calcium 10 MG Tablet PO (21:28)
[2018-11-22] MEDS: Gabapentin 300 MG Capsule 900 MG PO (21:30)
[2018-11-22] MEDS: Acetaminophen 325 MG Tablet 650 MG PO (21:38)
[2018-11-23] MEDS: Lactated Ringers 1,000 ML 100 ML IV (02:17)
[2018-11-23 03:00] VITALS: BP 159/60; PULSE 58; RESP 16; TEMP 36.3; O2SAT 97
[2018-11-23 05:26] VITALS: PULSE 57
[2018-11-23] MEDS: Levothyroxine 88 MCG Tablet PO (05:58)
[2018-11-23 06:53] LABS: Calcium,Total 8.4 mg/dL (8.5-10.1)
[2018-11-23 07:30] VITALS: PULSE 62
[2018-11-23 08:04] VITALS: BP 143/76; PULSE 59; RESP 18; TEMP 36.7; O2SAT 96
[2018-11-23] MEDS: Pantoprazole Sodium 20 MG Tablet PO (08:09)
[2018-11-23] MEDS: Losartan Potassium 25 MG Tablet PO (08:09)
[2018-11-23] MEDS: Calcium Carb/Vitamin D 1 TABLET Tablet PO (08:09)
[2018-11-23] MEDS: Carvedilol 6.25 MG Tablet PO (08:09)
[2018-11-23] MEDS: Aspirin E.C. 81 MG Tablet PO (08:10)
[2018-11-23] MEDS: Gabapentin 300 MG Capsule 900 MG PO (08:13)
[2018-11-23 08:18] VITALS: PULSE 59
[2018-11-23] MEDS: Acetaminophen 325 MG Tablet 650 MG PO (09:38)
--- NOTE | 2018-11-23 10:14 | PN.SURG_ITS ---
Subjective: Well-appearing female no acute distress sitting at the bedside. Voicing is normal. Chvostek sign is negative. Drains with minimal serosanguineous collections and these were removed at the bedside. Objective: Patient reports she is doing well without complaints of hoarseness or significant incisional pain. She denies any perioral numbness or tingling. Eyes any chest pain or palpitations. - Physical Exam General: Alert, Oriented x3, Cooperative HEENT: Atraumatic, PERRLA, - - Neck incision is clean, dry, and intact. Oral: Moist Mucosa, No Gingival or Mucosal Lesions/ Ulcerations Neck: Supple, Trachea Midline Lungs: Normal air movement, No rhonchi, No wheeze Cardiovascular: Regular rate, Regular Rhythm Extremities: No clubbing, No cyanosis, No edema Skin: No rashes, No breakdown Psych/Mental Status: Alert and oriented to time, place, person, mood and affect Vital Signs Temp Pulse Resp BP Pulse Ox 98.1 F 59 L 18 143/76 H 96 11/23/18 08:04 11/23/18 08:18 11/23/18 08:04 11/23/18 08:04 11/23/18 08:04 Oxygen Delivery Method Room Air Weight: 84.9 kg Body Mass Index (BMI) 31.1 Intake and Output for Last 24 Hours 11/21/18 11/22/18 11/23/18 23:59 23:59 23:59 Intake Total 230 / 1015 1526 / 1526 Output Total 45 / 370 505 / 505 Balance 185 / 645 1021 / 1021 Laboratory Tests Past 24 Hrs 11/22/18 11/22/18 11/23/18 11:10 16:15 06:22 Sodium 140 Potassium 4.2 Chloride 107 Carbon Dioxide 29.0 Anion Gap 4 L BUN 19 H Creatinine 0.68 Est GFR (MDRD) Af Amer 110 Est GFR (MDRD) Non-Af 91 BUN/Creatinine Ratio 28.1 H Glucose 94 Calcium 8.7 8.3 L 8.4 L Medical Necessity - Tobacco Use Smoking Status: Never smoker Tobacco Use: Non-smoker Assessment/Plan All Active Problems (Last Updated 11/19/18 @ 10:19 by Priya Rose) Presence of stent in coronary artery (Acute) The patient is doing well status post total thyroidectomy for massive substernal goiter. Voicing is normal this morning. Calcium is slightly low however she is asymptomatic. She has calcium citrate with vitamin D at home and I have asked h er to start this taking 2 pills daily to support her calcium metabolism during her recovery period. Anticipate zoroastrian of normal function as normal parathyroids were visualized and retained during the surgical procedure. As she is doing well we will discharge to home starting on levothyroxine replacement therapy.
== END 2018-11-23 11:48 | disposition home or self-care (01) ==
LOC: SDC 16:13
PROVIDERS: Admitting Provider Otolaryngology; Family Provider Family Medicine Geriatric Medicine; PCP Family Medicine Geriatric Medicine; Referring Provider Otolaryngology; Visit Provider Otolaryngology
PROC: (CPT 60271; principal; 2018-11-22 12:30)
DX: E04.1 Nontoxic single thyroid nodule (principal); I25.10 Atherosclerotic heart disease of native coronary artery without angina pectoris; Z95.5 Presence of coronary angioplasty implant and graft; Z79.899 Other long term (current) drug therapy; Z79.02 Long term (current) use of antithrombotics/antiplatelets; Z95.1 Presence of aortocoronary bypass graft; I10 Essential (primary) hypertension; K21.9 Gastro-esophageal reflux disease without esophagitis
CPT/HCPCS: 00320; 60271; 36415; 80048; 82310; 88307; 88331; 88332; 93005; 96360; 96361; 99218; J7120; G0378; G0379; J2405

== ENCOUNTER → 2018-12-10 12:04 | Outpatient (CLI) | payer MEDICARE, OTHER, SELFPAY ==
[2018-11-18 13:59] VITALS: BMI 31.4
[2018-12-02 13:53] VITALS: BMI 31.8
--- NOTE | 2018-12-10 12:32 | PCM.CR.ITP ---
General Information - General Information Admitting Diagnosis: PCI W/CORONARY STENT PLACEMENT - Education/Goals Barriers to Learning: Vision Impairment Individual Counseling: Initial Assessment: High Blood Pressure, Overweight/Obesity Cardiac Rehabilitation Goals: 1. Maintain the individual as the primary focus of care. 2. To improve the patient's quality of life. 3. Identification of cardiac risk factors and provide cardiac risk factor management. 4. Enhance the psychosocial status of the patient. 5. Reconditioning enough to allow the patient to resume customary activities. 6. Control symptoms of cardiac disease Scale for measuring improvement of personal goals: Enter appropriate number in Comments. 2 = Unchanged. 3 = Slightly Better. 4 = Moderate Improvement. 5 = Met my Goal Personal Goals: Initial Assessment: Improve management of stress and emotions, Improve energy level, Improve diet and eating habits (eat healthier), Control risk factors (learn risk factor modification) Exercise - Initial Assessment - Visit Date of Eval: 12/10/18 Session #:: 0 - START CR ON 12/18/2018 - Stages of Change Stages of Change:: Action - Physician Prescribed Exercise Modalities: Treadmill, Airdyne, NuStep Frequency (days/week): 3x/week for 12 weeks [36 sessions] Duration (Minutes):: 30-45 Intensity: 60-80% age predicted maximum heart rate reserve METs - Progression: 0.5-1.0 MET, RPE 11-14 WEEK: 2.5 Target Heart Rate:: 96-110 - Hypertension Do any of the following apply?: Yes Resting Blood Pressure:: 130/70 - Intervention Home Exercise/Activity Goal:: Sitting Time <3 hrs/day - Education Goals:: Warm-up, RPE JOSELINE Scale, S/S, Safe Exercise, Self-Monitoring - Exercise Program Goals Exercise Program Goals: Aerobic Activity >30 min Nutrition - Initial Assessment - Program Goals Nutrition Program Goals: LDL <70. Total Cholesterol <200. HDL >45. Triglycerides <150. HgbA1C <7%. BMI <25 - Visit Date of Assessment:: 12/10/18 - Stages of Change Stages of Change:: Action - Lipids Total Cholesterol (mg/dL) Goal = less than 200 mg/dL: 143 HDL Cholesterol (mg/dL) Goal = less than 45 mg/dL: 66 LDL Cholesterol (mg/dL) Goal = less than 70 mg/dL: 57 Triglycerides (mg/dL) Goal = less than 150 mg/dL: 99 - Diabetes Diabetes:: No Insulin: No Non-Insulin Dependent?: No Do you monitor your blood sugar at home?: No - Weight Management Height: 5 ft 5 in Weight:: 191 lb Body Fat %:: 31.8 - Intervention Referral to dietitian:: Yes Referral to Diabetic Clinic:: No Will attend diet classes:: Yes - Education Gave educational materials for:: Healthy eating Tobacco - Initial Assessment - Program Goals Tobacco Program Goals: Complete smoking cessation. Attend education classes. Improve Knowledge Test score - Stage of Change Stages of Change:: Action - Learning Barriers Learning Barriers: Vision, Ready to Learn - Family Support Do you have family support?: Yes - Tobacco Use Tobacco Use: Non-smoker Do you use smokeless tobacco?: No - Intervention Smoking Cessation Referral:: No Individual Education/Counseling:: No Education Schedule Given:: Yes - Education Attended class for:: Treating Heart Disease, How The Heart Works, What it means to have Heart Disease, How Coronary Artery Disease is Diagnosed, Heart Procedures, What Heart Medications Do, Risk Factors & Modifications, Living an Active Life, Nutrition, Emotions & Heart Disease, Stress Management & Relaxation, Sleep Disorders & Heart Disease Psychosocial - Initial Assess - Target Goals Target Goals: Assess presence or absence of depression. Using a valid screening tool, maximizes coping skills. Positive support system - Stages of Change Stages of Change:: Action - Psychosocial Test Tool Used:: HANDS Depression Questionnaire - Intervention PS - Interventions: Yes Attend Stress Management Classes, No Referral to Mental Health, No Referral to [facility] Case Management, No Referral to Physician, No Uses Stress Management Skills - Education Gave educational materials for:: Coping techniques, Signs & symptoms of depression, Stress management, Relaxation techniques - Assistive Devices Assistive Devices:: None Fall Risk Assessed:: Yes Patient Health Questionnaire Initial Assessment 1. Little interest or pleasure in doing things: Several days 2. Feeling down, depressed, or hopeless: Not at all 3. Trouble falling or staying asleep, or sleeping too much: Several days 4. Feeling tired or having little energy: Several days 5. Poor appetite or overeating: Not at all 6. Feeling bad about yourself -- or that you are a failure or have let yourself or your family down: Not at all 7. Trouble concentrating on things, such as reading the newspaper or watching television: Several days 8. Moving or speaking so slowly that other people could have noticed. Or the opposite - being so fidgety or restless that you have been moving around a lot more than usual: Not at all 9. Thoughts that you would be better off , or of hurting yourself in some way: Not at all How difficult have these problems made it for you to do your work, take care of things at home, or get along with other people?: Not difficult at all Total Score: 4 ELLE-Q SV Test - Statements CAD is a disease of the arteries in the heart: False Examples of risk factors for heart disease: True Angina is chest pain or discomfort: True The benefits of resistance training include: True Eating more meat and dairy products: False Anti-platelet medications such as aspirin are important: True The only effective way to manage stress: False An exercise warm-up slowly increases heart rate: True Prepared, processed foods usually have high sodium: True Depression is common after a heart attack: True The statin medications lower cholesterol: True To control blood pressure, lower the amount of sodium: True If someone gets chest discomfort during walking: False Transfats are partially hydrogenated vegetable oils: True Sleep apnea that is not treated increases the risk: True To control cholesterol, one should become a vegetarian: False Someone knows if he/she is exercising at the right level: True Diabetes cannot be prevented with exercise & health eating: False Stress is a large risk for heart attack: True A diet that can help lower blood pressure is rich in: True - Total Score Total Correct Responses: 19 Self-Efficacy Initial Assessment We would like to know how confident you are in doing certain activities. Please select your confidence level for:: Select your confidence level for the following using the scale 1-10 where 1 is not at all confident and 10 is totally confident. Your score is the average of all 6 responses. Fatigue: How confident are you that you can keep the fatigue caused by your disease from interfering with the things you want to do? Select Number: 9 Physical Discomfort or Pain: How confident are you that you can keep the physical discomfort or pain of your disease from interfering with the things you want to do? Select Number: 9 Emotional Distress: How confident are you that you can keep the emotional distress caused by your disease from interfering with the things you want to do? Select Number: 9 Other Symptoms or Health Problems: How confident are you that you can keep other symptoms or health problems from interfering with the things you want to do? Select Number: 9 Different Tasks and Activities: How confident are you that you can do the different tasks and activities needed to manage your health condition so as to reduce your need to see a doctor? Select Number: 9 Medication: How confident are you that you can do things other than just taking medication to reduce how much your illness affects your everyday life? Select Number: 9 Total Score:: 9 Nutrition Survey - Nutrition Survey Instructions Scoring Instructions: Scoring is as follows: Yes = 1 points. No = 0 point. Patient score that is >/=12 is considered to be at potential nutritional risk and could benefit from a referral to a registered dietitian. - Nutrition Survey Initial Have you lost >10 lbs over the past 2 months without trying?: No Are you following a special diet at home for diabetes, low fat, or low salt?: No Are you interested in meeting with a dietitian for help understanding your diet?: Yes Do you eat less than 3 meals a day?: No Do you eat fatty meats (castro, sausage, ribs, etc), fried foods, desserts, large amounts of salad dressings, margarine, butter, or cheese most days?: Yes Do you have food allergies? [Enter types in comment field]: No Do you eat in restaurants more than 3 times a week?: No Do you season food with salt, seasoning salt, or garlic salt?: Yes Do you used canned, boxed, frozen meals, or soups, seasoning packets?: No Total Score:: 3
[2018-12-10 12:38] VITALS: BP 130/70
--- NOTE | 2018-12-10 12:39 | PCM.CR.HP2 ---
CR - History & Physical - General Arrival date:: 12/10/18 Arrival time:: 12:07 Date of Referral:: 12/02/18 Date of CR Evaluation:: 12/10/18 Referring Physician: DR. BUBBA FOREMAN Primary Diagnosis: PCI W/STENT - History of Present Cardiac Event Onset Date: Enter Onset Date of cardiac illnesses in Comment field below Current stable Angina Pectoris:: No Acute Myocardial Infarction within 12 months:: No Coronary Artery Bypass Graft:: No Heart valve replacement or repair:: No PTCA or coronary stenting:: Yes Heart or Heart-Lung Transplant:: No Heart Failure EF <35%:: No Type of Symptoms:: PATIENT WAS SCHEDULED FOR A STRESS TEST WHICH INDICATED ISSUES WITHTHE HEART, WAS TAKEN TO THE [employer]ICE PRESIDENT [employer] AND SUBSEQUENTLY FOUND OCCLUISION AND HAD THE STENT DONE. - Medications Home Medications: Ambulatory Orders Medication Instructions Recorded calcium carbonate 600 mg(1,500 1 tab PO BID tab 07/28/17 mg)-vitamin D3 800 unit chewable tablet gabapentin 300 mg capsule 900 mg PO BID cap 07/28/17 carvedilol 6.25 mg tablet 6.25 mg PO BID #180 tab 04/23/18 simvastatin 20 mg tablet 20 mg PO QPM #90 tab 04/23/18 Ergocalciferol [Vitamin D] 50,000 unit PO QMONTH 11/08/18 Omeprazole [Prilosec] 20 mg PO DAILY 11/08/18 biotin 5 mg capsule 5 mg PO DAILY 11/11/18 Aspirin E.C. [Ecotrin] 81 mg PO DAILY@0800 tab 11/19/18 clopidogrel 75 mg tablet 75 mg PO DAILY #30 tab 11/19/18 losartan 25 mg tablet 25 mg PO DAILY 90 Days #90 tab 11/21/18 Acetaminophen [Tylenol Tablet] 650 mg PO Q4H PRN PRN tab 11/23/18 Levothyroxine [Synthroid] 88 mcg PO DAILY@0600 30 Days #30 11/23/18 tab duloxetine 60 mg capsule,delayed 60 mg PO DAILY 12/02/18 release - Allergies Allergies/Adverse Reactions: Allergies crab Allergy (Verified 12/02/18 08:40) Anaphylaxis Sulfa (Sulfonamide Antibiotics) Allergy (Verified 12/02/18 08:40) Hives sulfamethoxazole [From Bactrim] Allergy (Verified 12/02/18 08:40) Hives trimethoprim [From Bactrim] Allergy (Verified 12/02/18 08:40) Hives hydrocodone [From Vicodin] Adverse Reaction (Verified 12/02/18 08:40) Upset Stomach - Sleep Disorder Evaluation Hx of Sleep Apnea: Yes Do you snore loudly (louder than talking or can be heard through closed doors)?: No - PATIENT STATES SHE WAS TESTED AND DIAGNOSED WITH RESTLESS LEG SYNDROME BUT NO SLEEP DISORDER. Advanced Directives - Advanced Directives Power of Inspector Subassemblies: Yes Living Will: Yes Advance Directives Information Provided: No Advance Directives on File: No - PATIENT TO BRING COPIES TO MEDICAL RECORDS TO BE SCANNED. DNR Order?:: No - MOLST See MOLST form: No Past Medical History - Past Medical Illness Medical History: Past Medical History (Last Reviewed 12/02/18 @ 08:40 by Trupti Dhillon) Atherosclerosis of coronary artery of [place] heart without angina pectoris (Chronic) I25.10 CABG x 2 PHAM-LAD and D1 04/25/2002, PTCA to the ostial DIAG#1, 2.25 x 16 [employer]nergy HIGINIO to mid LAD 11/18/18 Obesity (Chronic) E66.9 Paroxysmal ventricular tachycardia (Chronic) I47.2 Hyperlipidemia (Chronic) E78.5 Arthritis M19.90 Depression F32.9 Fibromyalgia M79.7 - Past Surgical History Surgical History: Past Surgical History (Last Reviewed 12/02/18 @ 08:40 by Trupti Dhillon) Presence of stent in coronary artery (Acute) Z95.5 PTCA to the ostial DIAG#1, 2.25 x 16 Promus Synergy HIGINIO to mid LAD 11/18/18 H/O coronary artery bypass surgery (Chronic) Onset Date: 04/25/02 Z95.1 CABG x 2 PHAM-LAD and D1 04/25/2002 @ [facility] Dr. 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 S98.921A - Family History Summary Family History: Family History (Last Reviewed 12/02/18 @ 08:40 by Trupti Dhillon) Father Myocardial infarction age 72 Social History - Smoking History Smoking Status: Never smoker Hx Tobacco Use: No Hx Smoking Exposure: No - Alcohol Use Alcohol Usage: Yes - VERY MILD, OCCASIONAL BEER OR WINE - Substance Abuse Hx Substance Use: No - Occupation Occupation (List type of work in comments):: Retired - Hobbies, Recreation, Social Activities Hobbies: Other - FISHING Recreational Activities: I am able to engage in most, but not all activities Social Environment - Status Marital Status: - Current Living Arrangements Living Environment:: Spouse - Children How many children do you have?: 3 Do any of your children live nearby?: Yes - [employer] - Safety Do you feel safe in your surroundings?: Yes - Assistance Do you need any assistance at home?: NONE Review of Systems - Review of Systems Hints: Right click = Denies (Slash). Left click = Reports ([place]) Review of Present Symptoms: Reports: Shortness of Breath with Exertion, Fatigue - VERY MUCH SO, Appetite - Normal. Denies: Shortness of Breath at Rest, Dizziness/Lightheadedness, Heart Arrhythmia/Irregularities, Appetite - Special Diet, Sleep - Normal - UP FREQUENTLY AT NIGHT, GOING OUT TO THE RECLINER, STILL HAVING SOME RESIDUAL DISCOMFORT FROM THE THYROIDECTOMY. PATIENT STATES FOUND IT MORE COMFORTABLE TO BE IN THE RECLINER VERSUS THE NECK ON A PILLOW. - Pain Is Patient Pain Free?: Yes Pain Location: neck - PATIENT DESCRIBES DISCOMFORT NOT PAIN. Pain Level: 4/10 Risk Factor Assessment - Chief Complaint Chief Complaint: pATIENT PRESENTS TO CARDIAC REHAB TODAY FOLLOWING A RECENT HEART CATH, PCI INTERVENTION WIHT CORONARY STENT PLACEMENT ADN THEN THYROIDECTOMY PROCEDURES. SHE IS PLANNING ON STARTING CARDIAC REHAB HERE IN [place], BUT WILL BE WINTERING FOR 4-5 MONTHS IN [place] AND PLANS TO CONTINUE ANY REMAINING SESSION THERE. - Vital Signs Temperature: 97.8 F Respiratory Rate: 20 Pulse Ox: 95 Blood Pressure: 130/70 - Pulse Pulse Rate: 56 Pulse Rhythm: Regular - Hypertension How long have you been treated?: RECENTLY Blood Pressure Sitting - Right Arm: 130/70 - Stress Stress: Recent - STRESS ECHOCARDIOGRAM - Blood Cholesterol/Lipids Total Cholesterol (mg/dL) Goal = less than 200 mg/dL: 143 - 07/31/2017 HDL Cholesterol (mg/dL) Goal = less than 40 mg/dL: 66 LDL Cholesterol (mg/dL) Goal = less than 70 mg/dL: 57 Triglycerides (mg/dL) Goal = less than 150 mg/dL: 99 - Diabetes Nutrition Referral for Diabetes: No - Obesity Height: 5 ft 5 in Weight:: 191 lb Weight in Pounds: 191.0 lbs Weight Source: Standing Scale Body Mass Index (BMI): 31.8 Nutritional Referral for Obesity: Yes - Physical Inactivity Physical Inactivity: None - Risk Stratification Risk Guidelines: Lowest Risk: Risk Factor for Smoking, Risk Factor for Dyslipidemia, Risk Factor for Diabetes, Risk Factor for Depression, Moderate Risk: Risk Factor for Sedentary Lifestyle, Highest Risk: Risk Factor for Obesity, Risk Factor for Hypertension - For Smoking Smoking Risk Guidelines: Smoking Low Risk: None or quit greater than 6 months ago. Smoking Moderate Risk: Smoker or quit 6 months or less ago. Smoking High Risk: Smoker - For Dyslipidemia Dyslipidemia Risk Guidelines: Low Risk: Moderate Risk: High Risk: 15-25% fat 25.1-29% fat >/= 30% fat. <7% sat fat 7-9% sat fat >9% sat fat. <150 mg chol 150-299 mg chol >/= 300 mg chol. LDL <100 LDL 100-129 LDL >/= 130. Chol/HDL ratio <5.0 Chol/HDL ratio 5.0-6.0 Chol/HDL ratio >6.0. Triglycerides <100 Triglycerides 100-149 Triglycerides >/= 150 - For Diabetes Mellitus Diabetes Risk Guidelines: Diabetes Low Risk: HgA1c <6.5% and/or FBG <120. Diabetes Moderate Risk: HgA1c 6.6-7.9% and/or FBG 120-180. Diabetes High Risk: HgA1c >/= 8% and/or FBG >180 - For Obesity/Overweight Obesity/Overweight Risk Guidelines: Obesity Low Risk: BMI <25.0. Obesity Moderate Risk: BMI 25-29.9. Obesity High Risk: BMI >/= 30.0 - For Hypertension Hypertension Risk Guidelines: Hypertension Low Risk: Systolic <120 and Diastolic <80. Hypertension Moderate Risk: Systolic 120-139 and Diastolic 80-89. Hypertension High Risk: Systolic >/= 140 and Diastolic >/= 90 - For Sedentary Lifestyle Sedentary Lifestyle Risk Guidelines: Sedentary Lifestyle Low Risk: >/= 1,500 kcal/week. Sedentary Lifestyle Moderate Risk: 700-1,499 kcal/week. Sedentary Lifestyle High Risk: < 700 kcal/week - For Depression Depression Risk Guidelines: Depression Low Risk: Not clinically depressed. Depression Moderate Risk: Mildly depressed. Depression High Risk: Clinically depressed - Family History Family History: Family History (Last Reviewed 12/02/18 @ 08:40 by Trupti Dhillon) Father Myocardial infarction Motivation - Motivation to Participate On a scale of 1 to 10, how prepared are you to commit to attending program?: 7 What do you see as barriers to successfully being able to complete the program?: FATIGUE What do you see as the benefits of succesfully completing the program? In other words, what do you hope to get out of participating in the program?: GETTING MORE STRENGTH Are there issues you are dealing with that will interfere with completing the program?: NONE Do you have a spouse or signficant other, family or friends who will help support you to complete the program?: YES.
[2018-12-10 12:55] VITALS: BP 130/70; PULSE 56; RESP 20; TEMP 36.6; O2SAT 95; BMI 31.8
== END ==
PROVIDERS: Family Provider Family Medicine Geriatric Medicine; PCP Family Medicine Geriatric Medicine; Referring Provider Internal Medicine Cardiovascular Disease; Visit Provider Internal Medicine Cardiovascular Disease
DX: E78.5 Hyperlipidemia, unspecified (principal); E04.9 Nontoxic goiter, unspecified; E66.9 Obesity, unspecified; Z90.49 Acquired absence of other specified parts of digestive tract

== ENCOUNTER 2018-12-18 09:49 | Outpatient (RCR) | payer MEDICARE, OTHER, SELFPAY ==
[2018-11-18 13:59] VITALS: BMI 31.4
[2018-12-10 12:55] VITALS: BMI 31.8
--- NOTE | 2019-01-10 08:10 | PCM.CR.ITP ---
Exercise - 30-day Assessment - Visit Date of Eval: 01/10/19 - PATIENT HAS NOT STARTED HER CARDIAC REHAB PROGRAM DUE TO RECENT FALL AND INJURY. SHE IS PLANNING ON STARTING CR ON 01/15/2019. Nutrition - Initial Assessment - Program Goals Nutrition Program Goals: LDL <70. Total Cholesterol <200. HDL >45. Triglycerides <150. HgbA1C <7%. BMI <25 - Diabetes Do you monitor your blood sugar at home?: No Tobacco - Initial Assessment - Program Goals Tobacco Program Goals: Complete smoking cessation. Attend education classes. Improve Knowledge Test score - Learning Barriers Learning Barriers: Vision, Ready to Learn Psychosocial - Initial Assess - Target Goals Target Goals: Assess presence or absence of depression. Using a valid screening tool, maximizes coping skills. Positive support system - Psychosocial Test Tool Used:: HANDS Depression Questionnaire - Assistive Devices Fall Risk Assessed:: Yes
== END 2019-01-13 23:59 ==
LOC: CR 09:49
PROVIDERS: Family Provider Family Medicine Geriatric Medicine; PCP Family Medicine Geriatric Medicine; Referring Provider Internal Medicine Cardiovascular Disease; Visit Provider Internal Medicine Cardiovascular Disease
DX: I25.10 Atherosclerotic heart disease of native coronary artery without angina pectoris (principal); Z95.1 Presence of aortocoronary bypass graft; Z95.5 Presence of coronary angioplasty implant and graft; R07.81 Pleurodynia
CPT/HCPCS: 71101; 93798

== ENCOUNTER → 2018-12-18 15:38 | Outpatient (CLI) | payer MEDICARE, OTHER, SELFPAY ==
[2018-11-18 13:59] VITALS: BMI 31.4
[2018-12-10 12:55] VITALS: BMI 31.8
--- NOTE | 2018-12-18 15:50 | RAD_ITS ---
STUDY: X-RAY - UNILATERAL RIBS ( LEFT ) WITH CHEST REASON FOR EXAM: Female, 73 years old. Left rib pain after falling. TECHNIQUE - RIBS: 4 view(s) of the ribs. TECHNIQUE - CHEST: 1 view COMPARISON: Prior chest radiograph of November 15, 2018 FINDINGS - RIBS: Demineralized osseous structures without acute fracture deformity. FINDINGS - CHEST: Negative for pneumothorax. The lungs are clear and expanded. There is no demonstrated pleural abnormality. Normal size heart. Status post prior midline sternotomy. Normal visualized pulmonary arteries. There is atherosclerotic calcification of the aortic arch . Normal clavicles and shoulders. Status post cholecystectomy. RAD/Ribs Uni Min 3V w/PA Chest IMPRESSION: RIBS: Demineralized osseous structures without acute fracture deformity. CHEST: No acute cardiopulmonary findings or changes. Negative for pneumothorax, atelectasis, consolidation or pleural effusion. Electronically Signed: Roxana Contreras MD at 20:11 EDT , Service support ,
== END ==
PROVIDERS: Family Provider Family Medicine Geriatric Medicine; PCP Family Medicine Geriatric Medicine; Referring Provider Family Medicine Geriatric Medicine; Visit Provider Family Medicine Geriatric Medicine
DX: R07.81 Pleurodynia (principal)
CPT/HCPCS: 71101

== ENCOUNTER 2019-01-08 06:30 | Emergency (ER) | payer MEDICARE, OTHER, SELFPAY ==
[2018-11-18 13:59] VITALS: BMI 31.4
[2018-12-10 12:55] VITALS: BMI 31.8
[2019-01-08 06:31] VITALS: BP 162/99; PULSE 62; RESP 20; TEMP 36.9; O2SAT 100; BMI 31.2
--- NOTE | 2019-01-08 06:41 | EKG12_ITS ---
Test Reason : SOB Blood Pressure : / mmHG Vent. Rate : 060 BPM Atrial Rate : 060 BPM P-R Int : 158 ms QRS Dur : 090 ms QT Int : 434 ms P-R-T Axes : 064 056 074 degrees QTc Int : 434 ms Normal sinus rhythm with sinus arrhythmia Nonspecific ST abnormality Abnormal ECG Confirmed by RADHA POOLE, ANISA ([id number]), newspaper managing editor JO ANN SIMEON ([id number]) on 01/10/2019 10:25:05 A M Referred By: XOCHITL Confirmed By:VISHAL GARCIA MD
--- NOTE | 2019-01-08 06:41 | RAD_ITS ---
STUDY: X-RAY CHEST REASON FOR EXAM: Female, 73 years old. Shortness of breath. TECHNIQUE: PA and lateral views of the chest. COMPARISON: November 15, 2018 FINDINGS: Patient has had a sternotomy. There is hyperinflation of the lungs consistent with chronic obstructive lung disease (COPD). There is no demonstrated pleural abnormality. Normal size heart. Normal mediastinum and jo ann. Normal visualized pulmonary arteries. There is atherosclerotic calcification of the aortic arch with tortuosity. There is demineralization of the osseous structures. Normal visualized ribs, clavicles, and shoulders. Surgical clips are visible in the right upper quadrant. RAD/Chest PA and Lateral IMPRESSION: No radiographic evidence of acute cardiopulmonary disease. Electronically Signed: Mely Wilkerson MD at 7:34 EDT , Service support ,
--- NOTE | 2019-01-08 06:44 | ED.DCSUM_ITS ---
History of Present Illness Chief Complaint: General Illness Narrative: Patient is a 73-year-old female who presents with multiple complaints. She complains about 1 day of loose bowels. She has had loose stools frequently roughly about every hour for the past 1 day. Shortly before presentation about an hour ago she also began to feel short of breath. She complains of feeling anxious. She does not have a history of anxiety or prior similar symptoms. She denies any chest pain. No fevers nausea or vomiting. No abdominal pain. She does have a history of coronary artery disease. She has had a prior CABG. She had a stent on November 18 and then had a thyroidectomy for goiter on November 22. She has otherwise recently been well until her current symptoms. No recent antibiotics. No history of C. difficile. She was in the hospital 1 day after her thyroidectomy. Past Medical History - Allergies and Home Meds Allergies/Adverse Reactions: Allergies crab Allergy (Verified 01/08/19 06:34) Anaphylaxis Sulfa (Sulfonamide Antibiotics) Allergy (Verified 01/08/19 06:34) Hives sulfamethoxazole [From Bactrim] Allergy (Verified 01/08/19 06:34) Hives trimethoprim [From Bactrim] Allergy (Verified 01/08/19 06:34) Hives hydrocodone [From Vicodin] Adverse Reaction (Verified 01/08/19 06:34) Upset Stomach Primary Care Physician: Nakul Corbin Chi, MD [Primary Care Provider] - Prior records reviewed: Yes Past Medical History: - - Hypertension, hyperlipidemia, coronary artery disease, hypothyroidism Surgical History: - - CABG, cardiac cath, coronary stent, thyroidectomy Smoking Status: Never smoker Review of Systems All systems negative except as indicated General: Denies: Fever Cardiovascular: Denies: Chest pain Respiratory: Reports: Dyspnea Gastrointestinal: Reports: Diarrhea. Denies: Abdominal pain, Nausea, Vomiting Psych: Reports: Anxiety Physical Exam Vital Signs/Narrative: Vital Signs Temp Pulse Resp BP Pulse Ox 01/08/19 06:31 98.4 F 62 20 H 162/99 H 100 Inital Vital Signs reviewed: Yes General: Acute Distress Head: Normocephalic, Atraumatic Eyes: EOMI ENT: Moist mucous membranes Neck: Supple Cardiovascular: Regular rate, Regular rhythm Respiratory: No distress, CTA bilaterally Abdomen: Soft, Nontender, Nondistended Skin: Normal color Neurological: Alert Psychological: - - Anxious Diagnostic/Tx/Re-eval 01/08/19 06:41 Chest PA and Lateral [RAD] Stat Laboratory Results 01/08/19 01/08/19 01/08/19 06:43 06:43 06:43 WBC 6.3 RBC 4.30 Hgb 13.4 Hct 40.9 MCV 95.1 MCH 31.2 MCHC 32.8 RDW Std Deviation 49.8 H RDW Coeff of Belinda 14.3 Plt Count 232 MPV 10.6 Immature Gran % (Auto) 0.500 Neut % (Auto) 58.9 Lymph % (Auto) 33.3 [place] % (Auto) 5.7 Eos % (Auto) 1.1 Baso % (Auto) 0.5 Absolute Neuts (auto) 3.7 Absolute Lymphs (auto) 2.10 Nucleated RBC % 0 PT 12.5 INR 1.0 D-Dimer Quant (PE/DVT) 0.39 Sodium 143 Potassium 3.9 Chloride 110 H Carbon Dioxide 23.0 Anion Gap 10 BUN 15 Creatinine 0.73 Estim Creat Clear Calc 47.60 Est GFR (MDRD) Af Amer 100 Est GFR (MDRD) Non-Af 83 BUN/Creatinine Ratio 20.5 H Glucose 110 H Calcium 8.9 Troponin I < 0.015 TSH 12.10 H - Medical Decision Making EKG shows normal sinus rhythm at a rate of 60 with no acute ischemic changes, unchanged from prior. Labs as above notable only for TSH of 12. Patient was advised to follow-up with her primary care physician in regards to her thyroid studies but I do not believe this explains her current symptoms her vitals are unremarkable. D-dimer is negative and she has no evidence of cardiac ischemia. She was advised on supportive care such as Imodium for diarrhea. She was instructed on specific signs and symptoms to monitor for and does understand return for new or worsening symptoms. ED Disposition - Plan for ED Patient: Disposition: Home or Assisted Living Diagnosis: Diarrhea, Anxiety Instructions: Treating Diarrhea, Anxiety Reaction Referrals: Nakul Corbin Chi, MD [Primary Care Provider] -
[2019-01-08] MEDS: 0.9% Normal Saline 1,000 ML 999 ML IV (06:48)
[2019-01-08] MEDS: LORazepam 2 MG/ML Syringe 0.5 MG IV (06:52)
[2019-01-08 06:59] LABS: Prothrombin Time (Protime)PT. 12.5 SECONDS (11.7-14.9)
[2019-01-08 07:03] LABS: D-Dimer Quantitative (DVT/PE) 0.39 FEU/ug/m (0.27-0.49)
[2019-01-08 07:05] LABS: Absolute Neutrophil Count 3.7 X10^3/uL (2.0-7.7); Basophil# 0.03 X10^3/uL; Basophil% 0.5 % (0-1); Eosinophil# 0.07 X10^3/uL; Eosinophils% 1.1 % (0-5); Hematocrit 40.9 % (37-47); Hemoglobin 13.4 g/dL (12.0-15.0); Lymphocyte % 33.3 % (19-41); Mean Corp Hgb Conc 32.8 g/dL (32-36); Mean Corpuscular Hgb 31.2 pg (27.0-32.0); Mean Corpuscular Volume 95.1 fL (81-99); Mean Platelet Vol. 10.6 fl (6.2-12.0); Monocyte# 0.36 X10^3/uL; Monocyte% 5.7 % (0-10); NRBC Flagged by Analyzer 0 % (0-5); Neutrophil # 3.71 X10^3/uL (2.7-7.7); Neutrophil % 58.9 % (47-70); Platelet Count 232 K/mm3 (150-450); RBC Distribution Width CV 14.3 % (11.6-14.6); RBC Distribution Width SD 49.8 fl (35.1-43.9); White Blood Count 6.3 K/mm3 (4.4-11.0)
[2019-01-08 07:13] LABS: Anion Gap 10 (5-15); BUN 15 mg/dL (7-18); BUN/Creat Ratio 20.5 RATIO (10-20); Calcium,Total 8.9 mg/dL (8.5-10.1); Chloride 110 mmol/L (98-107); Creatinine, Serum 0.73 mg/dL (0.55-1.02); EST Glomerular Filtration Rate 83 mL/min (>60); Est Glom Filt Rate - Afr Amer 100 mL/min (>60); Glucose 110 mg/dL (74-106); Potassium 3.9 mmol/L (3.5-5.1); Sodium Level 143 mmol/L (136-145)
[2019-01-08 07:45] VITALS: BP 152/63; PULSE 67; RESP 18; O2SAT 98
== END 2019-01-08 08:01 | disposition home or self-care (01) ==
LOC: ED 07:27
PROVIDERS: Emergency Provider Emergency Medicine; Family Provider Family Medicine Geriatric Medicine; PCP Family Medicine Geriatric Medicine
DX: R19.7 Diarrhea, unspecified (principal); F41.9 Anxiety disorder, unspecified; I25.10 Atherosclerotic heart disease of native coronary artery without angina pectoris; I10 Essential (primary) hypertension; E78.5 Hyperlipidemia, unspecified; E03.9 Hypothyroidism, unspecified; Z95.1 Presence of aortocoronary bypass graft; Z95.5 Presence of coronary angioplasty implant and graft; Z79.899 Other long term (current) drug therapy
CPT/HCPCS: 71046; 80048; 84443; 84484; 85025; 85379; 85610; 93005; 96361; 96374; 99283; A4216

== ENCOUNTER → 2019-01-27 15:57 | Outpatient (CLI) | payer MEDICARE, OTHER, SELFPAY ==
[2018-11-18 13:59] VITALS: BMI 31.4
[2019-01-08 06:31] VITALS: BMI 31.2
[2019-01-27 17:13] LABS: Thyroid Stim Hormone (TSH) 1.16 uIU/mL (0.358-3.74)
== END ==
PROVIDERS: Family Provider Family Medicine Geriatric Medicine; PCP Family Medicine Geriatric Medicine; Visit Provider Family Medicine Geriatric Medicine
DX: E03.9 Hypothyroidism, unspecified (principal)
CPT/HCPCS: 36415; 84443

== ENCOUNTER 2019-02-12 14:15 | Outpatient (RCR) | payer MEDICARE, OTHER, SELFPAY ==
[2018-11-18 13:59] VITALS: BMI 31.4
--- NOTE | 2019-02-07 09:07 | CR.ITP_ITS ---
Exercise - 30-day Assessment - Visit Date of Eval: 02/07/19 Session #:: 6 - damir has missed 2 sessions due to appointment conflicts - Stages of Change Stages of Change:: Action - Physician Prescribed Exercise Modalities: Treadmill, Rower, NuStep Frequency (days/week): 3 Duration (Minutes):: 30-45 Intensity: 60-80% age predicted maximum heart rate reserve METs - Progression: 0.5-1.0 MET, RPE 11-14 WEEK: 3.0 Target Heart Rate:: 96-110 w/max HR 109 - Hypertension Resting Blood Pressure:: 102/58 Peak Exercise Blood Pressure:: 136/62 Medication Changes:: No Nutrition - Initial Assessment - Program Goals Nutrition Program Goals: LDL <70. Total Cholesterol <200. HDL >45. Triglycerides <150. HgbA1C <7%. BMI <25 - Diabetes Do you monitor your blood sugar at home?: No Nutrition - 30-Day Assessment - Program Goals Nutrition Program Goals: LDL <70. Total Cholesterol <200. HDL >45. Triglycerides <150. HgbA1C <7%. BMI <25 - Visit Date of Eval: 02/07/19 - Stages of Change Stages of Change:: Action - Lipids Has the patient seen the dietitian?: No - Patient declined participating - Diabetes Diabetes:: No Insulin: No Non-Insulin Dependent?: No - Weight Management Weight:: 191 lb 8 oz - no change - Intervention Referral to dietitian:: No Referral to Diabetic Clinic:: No Will attend diet classes:: Yes - Education Attended class for:: Healthy eating Tobacco - Initial Assessment - Program Goals Tobacco Program Goals: Complete smoking cessation. Attend education classes. Improve Knowledge Test score - Learning Barriers Learning Barriers: Vision, Ready to Learn Tobacco - 30-Day Assessment - Program Goals Tobacco Program Goals: Complete smoking cessation. Attend education classes. Improve Knowledge Test score - Stage of Change Stages of Change:: Action - Learning Barriers Learning Barriers: Participates in education - Family Support Do you have family support?: Yes - Tobacco Use Tobacco Use: Non-smoker Do you use smokeless tobacco?: No - Intervention Smoking Cessation Referral:: No Individual Education/Counseling:: No Education Schedule Given:: Yes - Education Attended class for:: Nutrition, Emotions & Heart Disease, Stress Management & Relaxation, Sleep Disorders & Heart Disease Psychosocial - Initial Assess - Target Goals Target Goals: Assess presence or absence of depression. Using a valid screening tool, maximizes coping skills. Positive support system - Psychosocial Test Tool Used:: HANDS Depression Questionnaire - Assistive Devices Fall Risk Assessed:: Yes Psychosocial - 30-Day Assess - Target Goals Target Goals: Assess presence or absence of depression. Using a valid screening tool, maximizes coping skills. Positive support system - Stages of Change Stages of Change:: Action - Psychosocial Test Tool Used:: HANDS Depression Questionnaire - Intervention PS - Interventions: Yes Attend Stress Management Classes, Yes Uses Stress Management Skills, No Referral to Mental Health, No Referral to [facility] Case Management, No Referral to Physician - Education Attended classes for:: Coping techniques, Signs & symptoms of depression, Stress management, Relaxation techniques - Patient/Program Goal Preventative Medication(s):: Aspirin - patient compliant with medications, AMBER inhibitor, Clopidogrel, Beta trish, Statin/lipid - Assistive Devices Assistive Devices:: None Fall Risk Assessed:: Yes Patient Health Questionnaire 30-Day Re-eval Assessment 1. Little interest or pleasure in doing things: Several days 2. Feeling down, depressed, or hopeless: Not at all 3. Trouble falling or staying asleep, or sleeping too much: Several days 4. Feeling tired or having little energy: Several days 5. Poor appetite or overeating: Not at all 6. Feeling bad about yourself -- or that you are a failure or have let yourself or your family down: Not at all 7. Trouble concentrating on things, such as reading the newspaper or watching television: Not at all 8. Moving or speaking so slowly that other people could have noticed. Or the opposite - being so fidgety or restless that you have been moving around a lot more than usual: Not at all 9. Thoughts that you would be better off , or of hurting yourself in some way: Not at all How difficult have these problems made it for you to do your work, take care of things at home, or get along with other people?: Not difficult at all Total Score: 3 Self-Efficacy 30-Day Re-eval Assessment We would like to know how confident you are in doing certain activities. Please select your confidence level for:: Select your confidence level for the following using the scale 1-10 where 1 is not at all confident and 10 is totally confident. Your score is the average of all 6 responses. Fatigue: How confident are you that you can keep the fatigue caused by your disease from interfering with the things you want to do? Select Number: 9 Physical Discomfort or Pain: How confident are you that you can keep the physical discomfort or pain of your disease from interfering with the things you want to do? Select Number: 9 Emotional Distress: How confident are you that you can keep the emotional distress caused by your disease from interfering with the things you want to do? Select Number: 9 Other Symptoms or Health Problems: How confident are you that you can keep other symptoms or health problems from interfering with the things you want to do? Select Number: 9 Different Tasks and Activities: How confident are you that you can do the different tasks and activities needed to manage your health condition so as to reduce your need to see a doctor? Select Number: 9 Medication: How confident are you that you can do things other than just taking medication to reduce how much your illness affects your everyday life? Select Number: 9 Total Score:: 9
[2019-02-07 09:11] VITALS: BP 102/58; BP 136/62
== END 2019-02-13 23:59 ==
LOC: CR 14:15
PROVIDERS: Family Provider Family Medicine Geriatric Medicine; PCP Family Medicine Geriatric Medicine; Referring Provider Internal Medicine Cardiovascular Disease; Visit Provider Internal Medicine Cardiovascular Disease
DX: I25.10 Atherosclerotic heart disease of native coronary artery without angina pectoris (principal); Z95.1 Presence of aortocoronary bypass graft; Z95.5 Presence of coronary angioplasty implant and graft; R07.81 Pleurodynia
CPT/HCPCS: 93798

== ENCOUNTER 2019-02-14 14:42 | Outpatient (RCR) | payer MEDICARE, OTHER, SELFPAY ==
[2018-11-18 13:59] VITALS: BMI 31.4
[2019-02-14 00:20] VITALS: BP 102/58; BP 136/62
== END 2019-03-15 23:59 ==
LOC: CR 14:42
PROVIDERS: Family Provider Family Medicine Geriatric Medicine; PCP Family Medicine Geriatric Medicine; Referring Provider Internal Medicine Cardiovascular Disease; Visit Provider Internal Medicine Cardiovascular Disease
DX: I25.10 Atherosclerotic heart disease of native coronary artery without angina pectoris (principal); Z95.1 Presence of aortocoronary bypass graft; Z95.5 Presence of coronary angioplasty implant and graft; R07.81 Pleurodynia
CPT/HCPCS: 93798

== ENCOUNTER → 2019-02-17 11:25 | Outpatient (CLI) | payer MEDICARE, OTHER, SELFPAY ==
[2018-11-18 13:59] VITALS: BMI 31.4
--- NOTE | 2019-02-17 11:47 | RAD_ITS ---
STUDY: X-RAY - ABDOMEN/PELVIS REASON FOR EXAM: Female, 73 years old. Diarrhea for 2 days TECHNIQUE: AP supine and upright views of the abdomen and pelvis. COMPARISON: None. FINDINGS: Normal visualized lung bases. There is an unremarkable bowel gas pattern. There is no demonstrated free abdominal air. Right upper quadrant surgical clips are present. Normal soft tissue structures. There are diffuse degenerative changes of the visualized lumbar spine. RAD/Abdomen Single View IMPRESSION: No acute process Electronically Signed: John Parry MD at 12:24 EST , Service support ,
[2019-02-17 12:43] LABS: Absolute Lymphocyte Count 0.55 X10^3/uL (0.83-4.51); Absolute Neutrophil Count 4.1 X10^3/uL (2.0-7.7); Basophil# 0.02 X10^3/uL; Basophil% 0.4 % (0-1); Eosinophil# 0.13 X10^3/uL; Eosinophils% 2.5 % (0-5); Hematocrit 42.1 % (37-47); Hemoglobin 13.4 g/dL (12.0-15.0); Lymphocyte # 0.55 X10^3/ul (4.0); Lymphocyte % 10.7 % (19-41); Mean Corp Hgb Conc 31.8 g/dL (32-36); Mean Corpuscular Hgb 30.9 pg (27.0-32.0); Mean Corpuscular Volume 97.2 fL (81-99); Monocyte# 0.32 X10^3/uL; Monocyte% 6.2 % (0-10); NRBC Flagged by Analyzer 0 % (0-5); Neutrophil # 4.12 X10^3/uL (2.7-7.7); Neutrophil % 79.8 % (47-70); POSITIVE DIFFERENTIAL YES; Platelet Count 240 K/mm3 (150-450); RBC Distribution Width CV 12.5 % (11.6-14.6); RBC Distribution Width SD 44.8 fl (35.1-43.9); Red Blood Count 4.33 M/mm3 (4.2-5.4); White Blood Count 5.2 K/mm3 (4.4-11.0)
[2019-02-17 12:46] LABS: Differential Indicated SCAN CRITERIA MET
[2019-02-17 13:09] LABS: ALB/GLOB Ratio 0.7 RATIO (0.9-2.4); AST(SGOT) 782 U/L (15-37); Alanine Aminotransfer ALT/SGPT 707 U/L (13-56); Alkaline Phosphatase 262 U/L (45-117); Anion Gap 10 (5-15); BUN 13 mg/dL (7-18); BUN/Creat Ratio 12.6 RATIO (10-20); Calcium,Total 8.6 mg/dL (8.5-10.1); Chloride 102 mmol/L (98-107); Creatinine, Serum 1.03 mg/dL (0.55-1.02); EST Glomerular Filtration Rate 56 mL/min (>60); Est Glom Filt Rate - Afr Amer 68 mL/min (>60); Globulin 4.2 g/dL (2.2-4.2); Glucose 90 mg/dL (74-106); Potassium 4.2 mmol/L (3.5-5.1); Protein, Total 7.2 g/dL (6.4-8.2); Sodium Level 137 mmol/L (136-145); Thyroid Stim Hormone (TSH) 4.49 uIU/mL (0.358-3.74)
[2019-02-17 13:12] LABS: Platelet Estimate ADEQUATE (ADEQ); Red Cell Morphology NORM C+C NORMAL (NORM C&C)
== END ==
PROVIDERS: Family Provider Family Medicine Geriatric Medicine; PCP Family Medicine Geriatric Medicine; Referring Provider Family Medicine Geriatric Medicine; Visit Provider Family Medicine Geriatric Medicine
DX: R53.83 Other fatigue (principal); K56.41 Fecal impaction
CPT/HCPCS: 36415; 74018; 80053; 84443; 85025; 86704; 86705; 86706; 86708; 86709; 86803; 87340

== ENCOUNTER → 2019-02-18 08:31 | Outpatient (CLI) | payer MEDICARE, OTHER, SELFPAY ==
[2018-11-18 13:59] VITALS: BMI 31.4
== END ==
PROVIDERS: Family Provider Family Medicine Geriatric Medicine; PCP Family Medicine Geriatric Medicine; Visit Provider Family Medicine Geriatric Medicine
DX: R19.7 Diarrhea, unspecified (principal)
CPT/HCPCS: 82274; 83630; 87177; 87209; 87506

== ENCOUNTER → 2019-02-18 12:02 | Outpatient (CLI) | payer MEDICARE, OTHER, SELFPAY ==
[2018-11-18 13:59] VITALS: BMI 31.4
--- NOTE | 2019-02-18 12:37 | CT_ITS ---
STUDY: CT ABDOMEN AND PELVIS WITH CONTRAST REASON FOR EXAM: Female, 73 years old. Abdominal pain. RADIATION DOSAGE (If Supplied By Facility): CTDIvol = ( 23.17 ) mGy, DLP = ( 980.54 ) mGycm TECHNIQUE: Transaxial images were obtained from the dome of the diaphragm to the symphysis pubis with oral contrast. Oral and amp; IV Gastrografin and amp; 100mL Isovue-300 100 was administered. Sagittal and coronal images were reconstructed. Individualized dose optimization techniques were used for this CT. COMPARISON: None. FINDINGS: The visualized lung bases are unremarkable. The visualized portions of the heart are within normal limits. Liver has mild intrahepatic bile duct distention and is otherwise negative. There are surgical clips in the gallbladder fossa consistent with a prior cholecystectomy. There is a 1 cm dilated common bile duct. Recommend correlation with liver function tests. Normal spleen. Normal pancreas. Normal bilateral adrenal glands. Normal right kidney. Normal left kidney. Normal visualized stomach. Normal small intestine. There are multiple colonic diverticula consistent with diverticulosis. There is non-visualization of the appendix. There is diffuse atherosclerotic calcification of the abdominal aorta, without a demonstrated aneurysm. Normal inferior vena cava. Normal retroperitoneum. Normal urinary bladder. There is atrophy of the uterus. Normal abdominal wall. There are diffuse degenerative changes of the visualized lumbar spine. CT/Abdomen/Pelvis WITH Contrast IMPRESSION: Intra and extrahepatic bile duct distention. Correlate with liver function tests. Diverticulosis without definite diverticulitis. Electronically Signed: Ajit Simental MD at 22:16 EST , Service support ,
[2019-02-18 13:41] LABS: AST(SGOT) 229 U/L (15-37); Alanine Aminotransfer ALT/SGPT 453 U/L (13-56); Alkaline Phosphatase 238 U/L (45-117); Anion Gap 9 (5-15); BUN 9 mg/dL (7-18); BUN/Creat Ratio 14.9 RATIO (10-20); Calcium,Total 8.5 mg/dL (8.5-10.1); Chloride 108 mmol/L (98-107); Creatinine, Serum 0.61 mg/dL (0.55-1.02); EST Glomerular Filtration Rate 103 mL/min (>60); Est Glom Filt Rate - Afr Amer 125 mL/min (>60); Globulin 3.1 g/dL (2.2-4.2); Glucose 79 mg/dL (74-106); Protein, Total 6.1 g/dL (6.4-8.2); Sodium Level 142 mmol/L (136-145)
[2019-02-19 14:58] LABS: HEPATITIS B SURFACE AG Negative (Negative); Hepatitis A AB, Total Negative (Negative); Hepatitis A IgM Antibody Negative (Negative); Hepatitis B Core AB IgM Negative (Negative); Hepatitis B Core Ab Total Positive (Negative); Hepatitis C Ab <0.1 s/co ratio (0.0-0.9)
[2019-02-19 15:43] LABS: Hep B Surface Antibodies Reactive (.)
== END ==
PROVIDERS: Family Provider Family Medicine Geriatric Medicine; PCP Family Medicine Geriatric Medicine; Visit Provider Family Medicine Geriatric Medicine
DX: K57.30 Diverticulosis of large intestine without perforation or abscess without bleeding (principal); I10 Essential (primary) hypertension; Z13.89 Encounter for screening for other disorder; R19.7 Diarrhea, unspecified
CPT/HCPCS: 36415; 74177; 80053; 82274; 83630; 86704; 86705; 86706; 86708; 86709; 86803; 87177; 87209; 87340; 87506; Q9967

== ENCOUNTER → 2019-02-19 12:06 | Outpatient (CLI) | payer MEDICARE, OTHER, SELFPAY ==
[2018-11-18 13:59] VITALS: BMI 31.4
[2019-02-19 13:30] LABS: ALB/GLOB Ratio 0.7 RATIO (0.9-2.4); AST(SGOT) 86 U/L (15-37); Alanine Aminotransfer ALT/SGPT 282 U/L (13-56); Albumin, Serum 2.7 g/dL (3.2-5.0); Alkaline Phosphatase 186 U/L (45-117); Anion Gap 9 (5-15); BUN 10 mg/dL (7-18); BUN/Creat Ratio 15.4 RATIO (10-20); Calcium,Total 8.2 mg/dL (8.5-10.1); Chloride 109 mmol/L (98-107); Creatinine, Serum 0.65 mg/dL (0.55-1.02); EST Glomerular Filtration Rate 96 mL/min (>60); Est Glom Filt Rate - Afr Amer 116 mL/min (>60); Globulin 3.7 g/dL (2.2-4.2); Glucose 89 mg/dL (74-106); Potassium 3.7 mmol/L (3.5-5.1); Protein, Total 6.4 g/dL (6.4-8.2); Sodium Level 141 mmol/L (136-145)
== END ==
PROVIDERS: Family Provider Family Medicine Geriatric Medicine; PCP Family Medicine Geriatric Medicine; Visit Provider Family Medicine Geriatric Medicine
DX: I10 Essential (primary) hypertension (principal)
CPT/HCPCS: 36415; 80053

== ENCOUNTER → 2019-09-24 10:52 | Outpatient (CLI) | payer MEDICARE, OTHER, SELFPAY ==
[2018-11-18 13:59] VITALS: BMI 31.4
[2019-09-24 12:32] LABS: Absolute Neutrophil Count 3.3 X10^3/uL (2.0-7.7); Basophil# 0.03 X10^3/uL; Basophil% 0.6 % (0-1); Eosinophil# 0.11 X10^3/uL; Eosinophils% 2.1 % (0-5); Hematocrit 38.8 % (37-47); Mean Corp Hgb Conc 30.9 g/dL (32-36); Mean Corpuscular Hgb 30.6 pg (27.0-32.0); Mean Platelet Vol. 11.2 fl (6.2-12.0); Monocyte# 0.34 X10^3/uL; Monocyte% 6.6 % (0-10); NRBC Flagged by Analyzer 0 % (0-5); Neutrophil % 63.5 % (47-70); Platelet Count 232 K/mm3 (150-450); RBC Distribution Width CV 13.2 % (11.6-14.6); RBC Distribution Width SD 47.8 fl (35.1-43.9); Red Blood Count 3.92 M/mm3 (4.2-5.4); White Blood Count 5.2 K/mm3 (4.4-11.0)
[2019-09-24 12:54] LABS: Vitamin D,25 Hydroxy 34.8 ng/mL
[2019-09-24 13:12] LABS: ALB/GLOB Ratio 0.9 RATIO (0.9-2.4); AST(SGOT) 14 U/L (15-37); Alanine Aminotransfer ALT/SGPT 19 U/L (13-56); Albumin, Serum 3.5 g/dL (3.2-5.0); Alkaline Phosphatase 94 U/L (45-117); Anion Gap 6 (5-15); BUN 17 mg/dL (7-18); BUN/Creat Ratio 21.2 RATIO (10-20); Calcium,Total 8.8 mg/dL (8.5-10.1); Chloride 104 mmol/L (98-107); Cholesterol 171 mg/dL (200); EST Glomerular Filtration Rate 74 mL/min (>60); Est Glom Filt Rate - Afr Amer 90 mL/min (>60); Globulin 3.7 g/dL (2.2-4.2); Glucose 85 mg/dL (74-106); High Density Lipoprotein 83 mg/dL; Potassium 4.8 mmol/L (3.5-5.1); Protein, Total 7.2 g/dL (6.4-8.2); Sodium Level 138 mmol/L (136-145); Thyroid Stim Hormone (TSH) 0.63 uIU/mL (0.358-3.74); Triglycerides 115 mg/dL; Very Low Density Lipoprotein 23 mg/dL (5-40)
== END ==
PROVIDERS: PCP Family Medicine Geriatric Medicine; Visit Provider Family Medicine Geriatric Medicine
DX: E55.9 Vitamin D deficiency, unspecified (principal); I10 Essential (primary) hypertension
CPT/HCPCS: 36415; 80053; 80061; 82306; 84443; 85025

== ENCOUNTER 2019-11-12 08:00 | Outpatient (RCR) | payer MEDICARE, OTHER, SELFPAY ==
[2018-11-18 13:59] VITALS: BMI 31.4
[2019-10-28 11:58] VITALS: BP 137/47; PULSE 67; RESP 22; TEMP 36.9; BMI 30.8
--- NOTE | 2019-10-28 13:37 | PCM.WC.HP ---
(1) Leg wound, right Status: Acute Current Visit: Yes Qualifiers: Encounter type: initial encounter Qualified Code(s): S81.801A - Unspecified open wound, right lower leg, initial encounter Code(s): S81.801A - Unspecified open wound, right lower leg, initial encounter (2) Hypertension Status: Chronic Current Visit: No Code(s): I10 - Essential (primary) hypertension (3) Leg swelling Status: Chronic Current Visit: Yes Code(s): M79.89 - Other specified soft tissue disorders (4) Leg edema Status: Chronic Current Visit: Yes Code(s): R60.0 - Localized edema (5) Presence of stent in coronary artery Status: Chronic Current Visit: No Code(s): Z95.5 - Presence of coronary angioplasty implant and graft Comment: PTCA to the ostial DIAG#1, 2.25 x 16 Promus Synergy HIGINIO to mid LAD 11/18/18 (6) Atherosclerosis of coronary artery of [place] heart without angina pectoris Status: Chronic Current Visit: No Code(s): I25.10 - Atherosclerotic heart disease of [place] coronary artery without angina pectoris Comment: CABG x 2 PHAM-LAD and D1 04/25/2002, PTCA to the ostial DIAG#1, 2.25 x 16 Promus Synergy HIGINIO to mid LAD 11/18/18 (7) H/O coronary artery bypass surgery Status: Chronic Current Visit: No Code(s): Z95.1 - Presence of aortocoronary bypass graft Comment: CABG x 2 PHAM-LAD and D1 04/25/2002 @ [facility] Dr. Jeffries (8) Obesity Status: Chronic Current Visit: No Code(s): E66.9 - Obesity, unspecified (9) Paroxysmal ventricular tachycardia Status: Chronic Current Visit: No Code(s): I47.2 - Ventricular tachycardia (10) Hyperlipidemia Status: Chronic Current Visit: No Code(s): E78.5 - Hyperlipidemia, unspecified History of Present Illness Date of Service: 10/28/19 Chief Complaint: Traumatic wound to the right anterior tibial surface History of Wound: This is a 74-year-old female who sustained an injury to the anterior tibial surface of the right lower extremity on October 15, 2019. On that date, while working in her yard, she fell, and impacted the right anterior tibial surface against a tree stump. An injury and wound resulted. She was treated the same day by her primary care physician, Dr. Corbin, and has been treated several times thereafter by Dr. Arroyo. She has received injections of Rocephin in Dr. Corbin's office on separate occasions. Additionally, a prescription was provided for clindamycin, which she completed orally. Subsequently, a prescription was provided to the patient for Levaquin, which the patient refused to take, due to her understanding of potential complications and side effects. Clindamycin 300 mg was initially prescribed twice daily for 7 days. This was taken from October 22 to October 29. Levaquin was then prescribed, but the patient refused to take it. Patient has been using bacitracin topically on her right lower extremity wound. Past Medical History Past Medical History: Chronic Problems (Last Reviewed 12/02/18 @ 08:40 by Trupti Dhillon) Hypertension (Chronic) Leg swelling (Chronic) Leg edema (Chronic) Substernal thyroid goiter (Chronic) Presence of stent in coronary artery (Chronic 11/18/18) PTCA to the ostial DIAG#1, 2.25 x 16 Prom[employer] HIGINIO to mid LAD 11/18/18 Atherosclerosis of coronary artery of [place] heart without angina pectoris (Chronic) CABG x 2 PHAM-LAD and D1 04/25/2002, PTCA to the ostial DIAG#1, 2.25 x 16 Prom[employer]nergy HIGINIO to mid LAD 11/18/18 H/O coronary artery bypass surgery (Chronic 04/25/02) CABG x 2 PHAM-LAD and D1 04/25/2002 @ [facility] Dr. Jeffries Obesity (Chronic) Paroxysmal ventricular tachycardia (Chronic) Hyperlipidemia (Chronic) Past Medical History: The patient's history is negative for myocardial infarction, cerebrovascular accident, diabetes mellitus, cancer, renal disease, and pulmonary disease. Patient has a history of coronary artery disease, having undergone coronary revascularization in 2002. A coronary artery stent was placed on December 02, 2018. Patient has a history of hypertension and hyperlipidemia. Surgical History: - - CABG - 2002; cardiac cath, coronary stent -2018; thyroidectomy - 2018; cholecystectomy - 1999; tonsillectomy; right transmetatarsal amputation in 2004, secondary to traumatic accident. The patient is a G0, P0 Ab0 Allergies/Adverse Reactions: Allergies crab Allergy (Verified 10/28/19 12:31) Anaphylaxis Sulfa (Sulfonamide Antibiotics) Allergy (Verified 10/28/19 12:31) Hives sulfamethoxazole [From Bactrim] Allergy (Verified 10/28/19 12:31) Hives trimethoprim [From Bactrim] Allergy (Verified 10/28/19 12:31) Hives hydrocodone [From Vicodin] Adverse Reaction (Verified 10/28/19 12:31) Upset Stomach Home Medications: Ambulatory Orders Medication Instructions Recorded gabapentin 300 mg capsule 900 mg PO BID cap 07/28/17 Ergocalciferol [Vitamin D] 50,000 unit PO QMONTH 11/08/18 losartan 25 mg tablet 25 mg PO DAILY 90 Days #90 tab 11/21/18 Levothyroxine [Synthroid] 88 mcg PO DAILY@0600 30 Days #30 11/23/18 tab carvedilol 6.25 mg tablet 6.25 mg PO BID #180 tab 04/21/19 simvastatin 20 mg tablet 20 mg PO QPM #90 tab 04/21/19 omeprazole 20 mg capsule,delayed 20 mg PO DAILY #90 cap 04/23/19 release clopidogrel 75 mg tablet 75 mg PO DAILY #90 tab 06/03/19 - Family History Paternal Family History: Family History (Last Reviewed 12/02/18 @ 08:40 by Trupti Dhillon) Father Myocardial infarction - - Patient's father was estranged, and his health history is little known. The patient's mother at age of 72 as result of a pulmonary embolism which occurred as the result of a severe motor vehicle accident. Social History: The patient is a retired insurance front office spec. Lives: Spouse/ Significant Other Smoking Status: Never smoker Tobacco Use: Non-smoker Alcohol: None Drugs: None Review of Systems Constitutional: Denies: Chills, Fever, Weight Change Eyes: Denies: Pain, Vision Change HEENT: Denies: Difficulty Hearing, Difficulty Swallowing, Sinus Congestion Cardiovascular: Denies: Chest Pain, Palpitations Respiratory: Denies: Cough, Shortness of Breath Gastrointestinal: Denies: Diarrhea, Nausea, Vomiting Genitourinary: Denies: Dysuria, Hematuria Endocrine: Denies: Heat/ Cold Intolerance, Polydipsia, Polyuria Hematologic/ Lymphatic: Denies: Easy Bruising, Easy Bleeding - Physical Exam Vital Signs Temp Pulse Resp BP 98.4 F 67 22 H 137/47 H 07/14/20 11:58 10/28/19 11:58 10/28/19 11:58 10/28/19 11:58 General: Alert, Oriented x3, Cooperative, No apparent distress, Well developed, Well nourished HEENT: Atraumatic, PERRLA, EOMI, Normocephalic Oral: Moist Mucosa Neck: Supple, No JVD, Negative Carotid Bruits, Negative Hepatojugular Reflux, No Nodes, No Nuchal Rigidity, Trachea Midline Lungs: Clear to auscultation, Normal air movement, No rhonchi, No wheeze, No rales Cardiovascular: Regular rate, Regular Rhythm, Normal S1, Normal S2, No murmurs Abdomen: Soft, Non Tender, Non-Distended, Obese Extremities: No clubbing, No cyanosis, No Calf Tenderness, - - Slight swelling and edema is noted in the patient's lower extremities. A superficial wound is noted on the right anterior tibial surface, with a difficult amount of dry eschar. There is no sign of infection or cellulitis. Dimensions are documented elsewhere. There is a moderate amount of bioburden. Wound Measurements and Assessment WC - Nurse 1 - General Ulcer Measurement Start: 10/28/19 11:58 Freq: Status: Active Protocol: Activity Type Activity Date Activity User E-Sign Co-Sign Detail Recorded Client Recorded Date Recorded By Document 10/28/19 11:58 [id number] 10/28/19 12:28 DL 10/28/19 11:58 Wound Center Nurse 1 [Ulcer Assessment] #1 R [place] -Current Size (cm) - Length 3.3 -Current Size (cm) - Width 3.3 -Current Size (cm) - Depth 0.1 -Total Square Cm 10.89 -Photo Taken Yes -Classification - Thickness Unclassifiable (Eschar Covered ) -Exudate Amt None Present -Exudate Type Serosanguineous -Wound Margin Distinct, Outline Attached -Granulation Amt None Present (0 %) -Necrosis Amt Large (67-100%) -Necrotic Tissue Type Eschar -Structure Exposed N/A -Texture (Viri-wound Skin Appearance) Localized Edema ,Scarring -Moisture (Viri-wound Skin Appearance No Abnormality ) -Color (Viri-wound Skin Appearance) Erythema -Temperature (Viri-wound Skin No Abnormality Appearance) (Pt Warm) -Tenderness on Palpation (Viri-wound No Skin Appearance) -Ulcer Cleansing Wound Cleanser -Foul Odor after Cleansing No -Anesthetic Used 4% Lidocaine Solution,5% Lidocaine Gel [Edema Assessment] -Right Calf (cm) 39 -Right Ankle (cm) 25.8 -Left Calf (cm) 39 -Left Ankle (cm) 27.8 BHARTI - Nurse 2 - General Ulcer CM Notes Start: 10/28/19 11:58 Freq: Status: Active Protocol: Activity Type Activity Date Activity User E-Sign Co-Sign Detail Recorded Client Recorded Date Recorded By Document 10/28/19 12:53 DV [id number] 10/28/19 13:01 DV 10/28/19 12:53 Wound Center Nurse 2 [Procedure/Treatment] #1 R [place] -Time 12:54 -Correct Patient Yes -Correct Side, Site, Position Yes -Correct Procedure Yes -Procedure Performed Yes -Type of Procedure Debridement -Clinical Debridement Subcutaneous -Post Debridement Size (cm) - Length 3.0 -Post Debridement Size (cm) - Width 3.0 -Post Debridement Size (cm) - Depth 0.3 -Total Square Cm 9.00 -Wound/Ulcer Outcome Not Healed -Ulcer Cleansing Rinsed/ Irrigated with Saline -Foul Odor after Cleansing No -Bioengineered Tissue No -Bleeding Controlled with Pressure -Offloading No -Treatment Response Procedure Tolerated Well [See Physician Procedure note for Specifics] Pain Scale: 0-10 Numeric [Pain] -Is Patient Pain Free? Yes Musculoskeletal: No Muscle Wasting Neurological: Cranial nerves II-XII grossly intact, Neuro grossly intact Psych/Mental Status: Normal Affect, Appropriate, Alert and oriented to time, place, person, mood and affect Debridement Note Post-Debridement Measurements/Treatment - Nurse 2 - General Ulcer CM Notes Start: 10/28/19 11:58 Freq: Status: Active Protocol: Activity Type Activity Date Activity User E-Sign Co-Sign Detail Recorded Client Recorded Date Recorded By Document 10/28/19 12:53 DV [id number] 10/28/19 13:01 DV 10/28/19 12:53 Wound Center Nurse 2 #1 R [place] -Time 12:54 -Correct Patient Yes -Correct Side, Site, Position Yes -Correct Procedure Yes -Procedure Performed Yes -Type of Procedure Debridement -Clinical Debridement Subcutaneous -Post Debridement Size (cm) - Length 3.0 -Post Debridement Size (cm) - Width 3.0 -Post Debridement Size (cm) - Depth 0.3 -Total Square Cm 9.00 -Wound/Ulcer Outcome Not Healed -Ulcer Cleansing Rinsed/ Irrigated with Saline -Foul Odor after Cleansing No -Bioengineered Tissue No -Bleeding Controlled with Pressure -Offloading No -Treatment Response Procedure Tolerated Well Pain Scale: 0-10 Numeric Is Patient Pain Free? Yes Laterality: Right - Anterior tibial surface Type of Debridement: Excisional debridement Anesthesia Used: 5% Lidocaine Gel Depth: Down to and including healthy tissue, in the subcutaneous layer Percentage of wound debrided: 100 Instrument Used: 5mm curette Tissue Removed: Bioburden and eschar Severity: Fat Layer Exposed Bleeding Controlled with: Compression and gauze Patient tolerated procedure well Assessment/Plan Active Problems (Last Reviewed 12/02/18 @ 08:40 by Trupti Dhillon) Leg wound, right (Acute) Leg swelling (Chronic) Leg edema (Chronic) Assessment: This is a 74-year-old female with numerous medical problems, as detailed above. She was in her normal state of health until October 14, at which time she fell in her yard, impacting the right anterior tibial surface against a tree stump. A wound has resulted, and has failed to heal appropriately. She presents at this time for definitive management. While there is no sign of infection, there is eschar covering a majority of the wound surface. The wound appears to be relatively superficial. Much of the eschar has been removed by mechanical debridement today. Plan: We are to implement the use of collagenase Santyl topically on a daily basis. The patient has been instructed in the appropriate means of application. A prescription has been provided. The patient is to return in 1 week for reassessment. In the interim, we are to obtain a noninvasive lower extremity arterial study and routine laboratory studies. Influenza vaccine was not administered today. The patient is not a smoker. Patient weighs 190 pounds. She stands 5 feet 6 inches tall. Her BMI is 30.8, which places her in a class 1 obesity category. Weight loss has been recommended.
--- NOTE | 2019-10-28 14:26 | PCM.WC.HP ---
(1) Leg wound, right Status: Acute Current Visit: Yes Qualifiers: Encounter type: initial encounter Qualified Code(s): S81.801A - Unspecified open wound, right lower leg, initial encounter Code(s): S81.801A - Unspecified open wound, right lower leg, initial encounter (2) Hypertension Status: Chronic Current Visit: No Code(s): I10 - Essential (primary) hypertension (3) Leg swelling Status: Chronic Current Visit: Yes Code(s): M79.89 - Other specified soft tissue disorders (4) Leg edema Status: Chronic Current Visit: Yes Code(s): R60.0 - Localized edema (5) Presence of stent in coronary artery Status: Chronic Current Visit: No Code(s): Z95.5 - Presence of coronary angioplasty implant and graft Comment: PTCA to the ostial DIAG#1, 2.25 x 16 [employer] HIGINIO to mid LAD 11/18/18 (6) Atherosclerosis of coronary artery of [place] heart without angina pectoris Status: Chronic Current Visit: No Code(s): I25.10 - Atherosclerotic heart disease of [place] coronary artery without angina pectoris Comment: CABG x 2 PHAM-LAD and D1 04/25/2002, PTCA to the ostial DIAG#1, 2.25 x 16 [employer] HIGINIO to mid LAD 11/18/18 (7) H/O coronary artery bypass surgery Status: Chronic Current Visit: No Code(s): Z95.1 - Presence of aortocoronary bypass graft Comment: CABG x 2 PHAM-LAD and D1 04/25/2002 @ [facility] Dr. Jeffries (8) Obesity Status: Chronic Current Visit: No Code(s): E66.9 - Obesity, unspecified (9) Paroxysmal ventricular tachycardia Status: Chronic Current Visit: No Code(s): I47.2 - Ventricular tachycardia (10) Hyperlipidemia Status: Chronic Current Visit: No Code(s): E78.5 - Hyperlipidemia, unspecified History of Present Illness Date of Service: 10/28/19 Chief Complaint: Traumatic wound to the right anterior tibial surface History of Wound: This is a 74-year-old female who sustained an injury to the anterior tibial surface of the right lower extremity on October 15, 2019. On that date, while working in her yard, she fell, and impacted the right anterior tibial surface against a tree stump. An injury and wound resulted. She was treated the same day by her primary care physician, Dr. Corbin, and has been treated several times thereafter by Dr. Corbin. She has received injections of Rocephin in Dr. Corbin's office. Additionally, records from Dr. Corbin indicate that prescriptions were provided for clindamycin, doxycycline, and Keflex. There is uncertainty about the timing of these medications, though the patient indicates that she took these antibiotics over a 2-week period. Subsequently, a prescription was provided to the patient for Levaquin, which the patient refused to take, due to her understanding of potential complications and side effects. The patient has been using bacitracin topically on her right lower extremity wound. Past Medical History Past Medical History: Chronic Problems (Last Reviewed 12/02/18 @ 08:40 by Trupti Dhillon) Hypertension (Chronic) Leg swelling (Chronic) Leg edema (Chronic) Substernal thyroid goiter (Chronic) Presence of stent in coronary artery (Chronic 11/18/18) PTCA to the ostial DIAG#1, 2.25 x 16 [employer] HIGINIO to mid LAD 11/18/18 Atherosclerosis of coronary artery of [place] heart without angina pectoris (Chronic) CABG x 2 PHAM-LAD and D1 04/25/2002, PTCA to the ostial DIAG#1, 2.25 x 16 [employer] HIGINIO to mid LAD 11/18/18 H/O coronary artery bypass surgery (Chronic 04/25/02) CABG x 2 PHAM-LAD and D1 04/25/2002 @ [facility] Dr. Jeffries Obesity (Chronic) Paroxysmal ventricular tachycardia (Chronic) Hyperlipidemia (Chronic) Surgical History: - - CABG - 2002; cardiac cath, coronary stent -2018; thyroidectomy - 2018; cholecystectomy - 1999; tonsillectomy; right transmetatarsal amputation in 2004, secondary to traumatic accident. The patient is a G0, P0 Ab0 Allergies/Adverse Reactions: Allergies crab Allergy (Verified 10/28/19 12:31) Anaphylaxis Sulfa (Sulfonamide Antibiotics) Allergy (Verified 10/28/19 12:31) Hives sulfamethoxazole [From Bactrim] Allergy (Verified 10/28/19 12:31) Hives trimethoprim [From Bactrim] Allergy (Verified 10/28/19 12:31) Hives hydrocodone [From Vicodin] Adverse Reaction (Verified 10/28/19 12:31) Upset Stomach Home Medications: Ambulatory Orders Medication Instructions Recorded gabapentin 300 mg capsule 900 mg PO BID cap 07/28/17 Ergocalciferol [Vitamin D] 50,000 unit PO QMONTH 11/08/18 losartan 25 mg tablet 25 mg PO DAILY 90 Days #90 tab 11/21/18 Levothyroxine [Synthroid] 88 mcg PO DAILY@0600 30 Days #30 11/23/18 tab carvedilol 6.25 mg tablet 6.25 mg PO BID #180 tab 04/21/19 simvastatin 20 mg tablet 20 mg PO QPM #90 tab 04/21/19 omeprazole 20 mg capsule,delayed 20 mg PO DAILY #90 cap 04/23/19 release clopidogrel 75 mg tablet 75 mg PO DAILY #90 tab 06/03/19 - Family History Paternal Family History: Family History (Last Reviewed 12/02/18 @ 08:40 by Trupti Dhillon) Father Myocardial infarction - - Patient's father was estranged, and his health history is little known. The patient's mother at age of 72 as result of a pulmonary embolism which occurred as the result of a severe motor vehicle accident. Lives: Spouse/ Significant Other Smoking Status: Never smoker Tobacco Use: Non-smoker Alcohol: None Drugs: None - Physical Exam Vital Signs Temp Pulse Resp BP 98.4 F 67 22 H 137/47 H 10/28/19 11:58 10/28/19 11:58 10/28/19 11:58 10/28/19 11:58 Wound Measurements and Assessment WC - Nurse 1 - General Ulcer Measurement Start: 10/28/19 11:58 Freq: Status: Active Protocol: Activity Type Activity Date Activity User E-Sign Co-Sign Detail Recorded Client Recorded Date Recorded By Document 10/28/19 11:58 DL [id number] 10/28/19 12:28 DL 10/28/19 11:58 Wound Center Nurse 1 [Ulcer Assessment] #1 R [place] -Current Size (cm) - Length 3.3 -Current Size (cm) - Width 3.3 -Current Size (cm) - Depth 0.1 -Total Square Cm 10.89 -Photo Taken Yes -Classification - Thickness Unclassifiable (Eschar Covered ) -Exudate Amt None Present -Exudate Type Serosanguineous -Wound Margin Distinct, Outline Attached -Granulation Amt None Present (0 %) -Necrosis Amt Large (67-100%) -Necrotic Tissue Type Eschar -Structure Exposed N/A -Texture (Viri-wound Skin Appearance) Localized Edema ,Scarring -Moisture (Viri-wound Skin Appearance No Abnormality ) -Color (Viri-wound Skin Appearance) Erythema -Temperature (Viri-wound Skin No Abnormality Appearance) (Pt Warm) -Tenderness on Palpation (Viri-wound No Skin Appearance) -Ulcer Cleansing Wound Cleanser -Foul Odor after Cleansing No -Anesthetic Used 4% Lidocaine Solution,5% Lidocaine Gel [Edema Assessment] -Right Calf (cm) 39 -Right Ankle (cm) 25.8 -Left Calf (cm) 39 -Left Ankle (cm) 27.8 WC - Nurse 2 - General Ulcer CM Notes Start: 10/28/19 11:58 Freq: Status: Active Protocol: Activity Type Activity Date Activity User E-Sign Co-Sign Detail Recorded Client Recorded Date Recorded By Document 10/28/19 12:53 DV [id number] 10/28/19 13:01 DV 10/28/19 12:53 Wound Center Nurse 2 [Procedure/Treatment] #1 R [place] -Time 12:54 -Correct Patient Yes -Correct Side, Site, Position Yes -Correct Procedure Yes -Procedure Performed Yes -Type of Procedure Debridement -Clinical Debridement Subcutaneous -Post Debridement Size (cm) - Length 3.0 -Post Debridement Size (cm) - Width 3.0 -Post Debridement Size (cm) - Depth 0.3 -Total Square Cm 9.00 -Wound/Ulcer Outcome Not Healed -Ulcer Cleansing Rinsed/ Irrigated with Saline -Foul Odor after Cleansing No -Bioengineered Tissue No -Bleeding Controlled with Pressure -Offloading No -Treatment Response Procedure Tolerated Well [See Physician Procedure note for Specifics] Pain Scale: 0-10 Numeric [Pain] -Is Patient Pain Free? Yes Debridement Note Post-Debridement Measurements/Treatment BHARTI - Nurse 2 - General Ulcer CM Notes Start: 10/28/19 11:58 Freq: Status: Active Protocol: Activity Type Activity Date Activity User E-Sign Co-Sign Detail Recorded Client Recorded Date Recorded By Document 10/28/19 12:53 DV [id number] 10/28/19 13:01 DV 10/28/19 12:53 Wound Center Nurse 2 #1 R [place] -Time 12:54 -Correct Patient Yes -Correct Side, Site, Position Yes -Correct Procedure Yes -Procedure Performed Yes -Type of Procedure Debridement -Clinical Debridement Subcutaneous -Post Debridement Size (cm) - Length 3.0 -Post Debridement Size (cm) - Width 3.0 -Post Debridement Size (cm) - Depth 0.3 -Total Square Cm 9.00 -Wound/Ulcer Outcome Not Healed -Ulcer Cleansing Rinsed/ Irrigated with Saline -Foul Odor after Cleansing No -Bioengineered Tissue No -Bleeding Controlled with Pressure -Offloading No -Treatment Response Procedure Tolerated Well Pain Scale: 0-10 Numeric Is Patient Pain Free? Yes Assessment/Plan Active Problems (Last Reviewed 12/02/18 @ 08:40 by Trupti Dhillon) Leg wound, right (Acute) Leg swelling (Chronic) Leg edema (Chronic) Assessment: This is a 74-year-old female with numerous medical problems, as detailed above. She was in her normal state of health until October 14, at which time she fell in her yard, impacting the right anterior tibial surface against a tree stump. A wound has resulted, and has failed to heal appropriately. She presents at this time for definitive management. While there is no sign of infection, there is eschar covering a majority of the wound surface. The wound appears to be relatively superficial. Much of the eschar has been removed by mechanical debridement today. Plan: We are to implement the use of collagenase Santyl topically on a daily basis. The patient has been instructed in the appropriate means of application. A prescription has been provided. The patient is to return in 1 week for reassessment. In the interim, we are to obtain a noninvasive lower extremity arterial study and routine laboratory studies. Influenza vaccine was not administered today. The patient is not a smoker. Patient weighs 190 pounds. She stands 5 feet 6 inches tall. Her BMI is 30.8, which places her in a class 1 obesity category. Weight loss has been recommended.
--- NOTE | 2019-10-29 14:45 | WC ---
Dr Lopez wanted labs and arterials on patient and when patient was informed- she stated she did not need the studies or labs performed and she was only coming for her wound so she did not see the need. Though I explained why these tests were needed, she still declined.
[2019-11-05 08:15] VITALS: BP 103/46; PULSE 75; RESP 18; TEMP 35.4; BMI 30.8
--- NOTE | 2019-11-05 09:21 | PCM.WC.PN ---
(1) Leg wound, right Status: Acute Current Visit: Yes Qualifiers: Encounter type: initial encounter Qualified Code(s): S81.801A - Unspecified open wound, right lower leg, initial encounter Code(s): S81.801A - Unspecified open wound, right lower leg, initial encounter (2) Leg edema Status: Chronic Current Visit: Yes Code(s): R60.0 - Localized edema (3) Atherosclerosis of coronary artery of [place] heart without angina pectoris Status: Chronic Current Visit: Yes Code(s): I25.10 - Atherosclerotic heart disease of [place] coronary artery without angina pectoris Comment: CABG x 2 PHAM-LAD and D1 04/25/2002, PTCA to the ostial DIAG#1, 2.25 x 16 Promus Synergy HIGINIO to mid LAD 11/18/18 (4) Obesity Status: Chronic Current Visit: Yes Code(s): E66.9 - Obesity, unspecified Type of Wound Date of Service: 11/05/19 Chief Complaint: Traumatic wound to the right anterior tibial surface History of Wound: This is a 74-year-old female who sustained an injury to the anterior tibial surface of the right lower extremity on October 15, 2019. On that date, while working in her yard, she fell, and impacted the right anterior tibial surface against a tree stump. An injury and wound resulted. She was treated the same day by her primary care physician, Dr. Corbin, and has been treated several times thereafter by Dr. Corbin. She has received injections of Rocephin in Dr. Corbin's office. Additionally, records from Dr. Corbin indicate that prescriptions were provided for clindamycin, doxycycline, and Keflex. There is uncertainty about the timing of these medications, though the patient indicates that she took these antibiotics over a 2-week period. Subsequently, a prescription was provided to the patient for Levaquin, which the patient refused to take, due to her understanding of potential complications and side effects. The patient has been using bacitracin topically on her right lower extremity wound. Progress of Wound: Today, courtesy visit for Dr. Lopez. The wound appears smaller in measurements from last week no sign of infection around the area. Patient states pain is less. Tolerating dressing changes well. We will continue same treatment till seen by Dr. Loepz. - Physical Exam Vital Signs Temp Pulse Resp BP 95.7 F L 75 18 103/46 L 11/05/19 08:15 11/05/19 08:15 11/05/19 08:15 11/05/19 08:15 General: Oriented x3, Cooperative, Well developed HEENT: Atraumatic, PERRLA Oral: Moist Mucosa Neck: Supple, No JVD Lungs: Clear to auscultation, Normal air movement Cardiovascular: Regular rate, Regular Rhythm Abdomen: Bowel Sounds Present, Soft, Non Tender, No Hepato-splenomegaly Extremities: No clubbing, No edema Skin: Ulcer/ Wound - Traumatic wound right lower leg Wound Measurements and Assessment WC - Nurse 1 - General Ulcer Measurement Start: 10/28/19 11:58 Freq: Status: Active Protocol: Activity Type Activity Date Activity User E-Sign Co-Sign Detail Recorded Client Recorded Date Recorded By Document 11/05/19 08:15 DV [id number] 11/05/19 08:19 DV 11/05/19 08:15 Wound Center Nurse 1 [Ulcer Assessment] #1 R [place] -Combined with other wound No -Current Size (cm) - Length 3.0 -Current Size (cm) - Width 3.0 -Current Size (cm) - Depth 0.2 -Total Square Cm 9.00 -Photo Taken No -Epithelialization None Present -Tunneling No -Undermining/Tunneling No -Circular Undermining No -Classification - Thickness Full Thickness with Exposed Support Structure -Exudate Amt Medium -Exudate Type Serosanguineous -Wound Margin Indistinct, Non -Visible -Granulation Amt None Present (0 %) -Granulation Quality N/A -Slough/Fibrin No -Necrosis Amt Medium (34-66%) -Necrotic Tissue Type Adherent Slough -Structure Exposed None/Limited to Skin Breakdown -Texture (Viri-wound Skin Appearance) Assessed, Localized Edema ,Scarring -Moisture (Viri-wound Skin Appearance Assessed, ) Weeping -Color (Viri-wound Skin Appearance) Assessed, Erythema -Temperature (Viri-wound Skin No Abnormality Appearance) (Pt Warm) -Tenderness on Palpation (Viri-wound No Skin Appearance) -Ulcer Cleansing Rinsed/ Irrigated with Saline -Foul Odor after Cleansing No -Anesthetic Used 4% Lidocaine Solution WC - Nurse 2 - General Ulcer CM Notes Start: 10/28/19 11:58 Freq: Status: Active Protocol: Activity Type Activity Date Activity User E-Sign Co-Sign Detail Recorded Client Recorded Date Recorded By Document 11/05/19 08:41 PL [id number] 11/05/19 08:47 PL 11/05/19 08:41 Wound Center Nurse 2 [Procedure/Treatment] -Time 08:42 -Correct Patient Yes -Correct Side, Site, Position Yes -Correct Procedure Yes -Procedure Performed Yes -Type of Procedure Debridement -Clinical Debridement Subcutaneous -Post Debridement Size (cm) - Length 3.0 -Post Debridement Size (cm) - Width 2.7 -Post Debridement Size (cm) - Depth 0.2 -Total Square (cm) 8.10 -Wound/Ulcer Outcome Not Healed -Ulcer Cleansing Rinsed/ Irrigated with Saline -Foul Odor after Cleansing No -Bleeding Controlled with Pressure -Treatment Response Procedure Tolerated Well [See Physician Procedure note for Specifics] Pain Scale: 0-10 Numeric [Pain] -Is Patient Pain Free? Yes Musculoskeletal: No Tenderness to Palpation of Joints or Extremities Lymphatic: No Cervical, Supraclavicular, or Inguinal Adenopathy Neurological: Cranial nerves II-XII grossly intact, Neuro grossly intact Psych/Mental Status: Normal Affect, Appropriate Debridement Note Post-Debridement Measurements/Treatment WC - Nurse 2 - General Ulcer CM Notes Start: 10/28/19 11:58 Freq: Status: Active Protocol: Activity Type Activity Date Activity User E-Sign Co-Sign Detail Recorded Client Recorded Date Recorded By Document 10/28/19 12:53 DV [id number] 10/28/19 13:01 DV Document 11/05/19 08:41 [email or web address] [id number] 11/05/19 08:47 10/28/19 11/05/19 12:53 08:41 Wound Center Nurse 2 #1 R [place] -Time 12:54 08:42 -Correct Patient Yes Yes -Correct Side, Site, Position Yes Yes -Correct Procedure Yes Yes -Procedure Performed Yes Yes -Type of Procedure Debridement Debridement -Clinical Debridement Subcutaneous Subcutaneous -Post Debridement Size (cm) - Length 3.0 3.0 -Post Debridement Size (cm) - Width 3.0 2.7 -Post Debridement Size (cm) - Depth 0.3 0.2 -Total Square (cm) 9.00 8.10 -Wound/Ulcer Outcome Not Healed Not Healed -Ulcer Cleansing Rinsed/ Rinsed/ Irrigated with Irrigated with Saline Saline -Foul Odor after Cleansing No No -Bioengineered Tissue No -Bleeding Controlled with Pressure Pressure -Offloading No -Treatment Response Procedure Procedure Tolerated Well Tolerated Well Pain Scale: 0-10 Numeric Is Patient Pain Free? Yes Yes Wound debrided: Right angel wound Type of Debridement: Excisional debridement Anesthesia Used: 5% Lidocaine Gel Depth: Down to and including healthy tissue, in the subcutaneous layer Percentage of wound debrided: 100 Instrument Used: 5mm curette Tissue Removed: Vitalized tissue Severity: Limited To Skin Breakdown Amount of bleeding with debridement: Mild Bleeding Controlled with: Compression and gauze Patient tolerated procedure well Assessment/Plan Active Problems (Last Reviewed 12/02/18 @ 08:40 by Trupti Dhillon) Leg wound, right (Acute) Leg swelling (Chronic) Leg edema (Chronic) Atherosclerosis of coronary artery of [place] heart without angina pectoris (Chronic) CABG x 2 PHAM-LAD and D1 04/25/2002, PTCA to the ostial DIAG#1, 2.25 x 16 Promus Synergy HIGINIO to mid LAD 11/18/18 Obesity (Chronic) Assessment: This is a 74-year-old female with numerous medical problems, as detailed above. She was in her normal state of health until October 14, at which time she fell in her yard, impacting the right anterior tibial surface against a tree stump. A wound has resulted, and has failed to heal appropriately. She presents at this time for definitive management. While there is no sign of infection, there is eschar covering a majority of the wound surface. The wound appears to be relatively superficial. Much of the eschar has been removed by mechanical debridement today. Plan: We are to implement the use of collagenase Santyl topically on a daily basis. The patient has been instructed in the appropriate means of application. A prescription has been provided. The patient is to return in 1 week for reassessment. In the interim, we are to obtain a noninvasive lower extremity arterial study and routine laboratory studies. Influenza vaccine was not administered today. The patient is not a smoker. Patient weighs 190 pounds. She stands 5 feet 6 inches tall. Her BMI is 30.8, which places her in a class 1 obesity category. Weight loss has been recommended.
[2019-11-12 07:54] VITALS: BP 117/68; PULSE 106; RESP 18; TEMP 35.7; BMI 30.8
--- NOTE | 2019-11-12 08:47 | PN.PCM_ITS ---
(1) Leg wound, right Status: Acute Current Visit: Yes Qualifiers: Encounter type: subsequent encounter Qualified Code(s): S81.801D - Unspecified open wound, right lower leg, subsequent encounter Code(s): S81.801A - Unspecified open wound, right lower leg, initial encounter (2) Leg edema Status: Chronic Current Visit: No Code(s): R60.0 - Localized edema (3) Atherosclerosis of coronary artery of [place] heart without angina pectoris Status: Chronic Current Visit: Yes Code(s): I25.10 - Atherosclerotic heart disease of [place] coronary artery without angina pectoris Comment: CABG x 2 PHAM-LAD and D1 04/25/2002, PTCA to the ostial DIAG#1, 2.25 x 16 Promus Synergy HIGINIO to mid LAD 11/18/18 (4) Obesity Status: Chronic Current Visit: Yes Code(s): E66.9 - Obesity, unspecified Type of Wound Date of Service: 11/12/19 Chief Complaint: Traumatic wound to the right anterior tibial surface History of Wound: This is a 74-year-old female who sustained an injury to the anterior tibial surface of the right lower extremity on October 15, 2019. On that date, while working in her yard, she fell, and impacted the right anterior tibial surface against a tree stump. An injury and wound resulted. She was treated the same day by her primary care physician, Dr. Corbin, and has been treated several times thereafter by Dr. Corbin. She has received injections of Rocephin in Dr. Corbin's office. Additionally, records from Dr. Corbin indicate that prescriptions were provided for clindamycin, doxycycline, and Keflex. There is uncertainty about the timing of these medications, though the patient indicates that she took these antibiotics over a 2-week period. Subsequently, a prescription was provided to the patient for Levaquin, which the patient refused to take, due to her understanding of potential complications and side effects. The patient has been using bacitracin topically on her right lower extremity wound. Progress of Wound: today the wound is closed and patient is discharged from the wound center. - Physical Exam Vital Signs Temp Pulse Resp BP 96.3 F L 106 H 18 117/68 11/12/19 07:54 11/12/19 07:54 11/12/19 07:54 11/12/19 07:54 General: Oriented x3, Cooperative, Well developed HEENT: Atraumatic, PERRLA Oral: Moist Mucosa Neck: Supple, No JVD Lungs: Clear to auscultation, Normal air movement Cardiovascular: Regular rate, Regular Rhythm Abdomen: Bowel Sounds Present, Soft, Non Tender, No Hepato-splenomegaly Extremities: No clubbing, No edema Wound Measurements and Assessment WC - Nurse 1 - General Ulcer Measurement Start: 10/28/19 11:58 Freq: Status: Active Protocol: Activity Type Activity Date Activity User E-Sign Co-Sign Detail Recorded Client Recorded Date Recorded By Document 11/12/19 07:54 BM [id number] 11/12/19 07:58 BMF 11/12/19 07:54 Wound Center Nurse 1 [Ulcer Assessment] #1 R [place] -Combined with other wound No -Current Size (cm) - Length 0.1 -Current Size (cm) - Width 0.1 -Current Size (cm) - Depth 0.1 -Total Square Cm 0.01 -Photo Taken No -Epithelialization Large 67-100% -Tunneling No -Undermining/Tunneling No -Circular Undermining No -Exudate Amt None Present -Wound Margin Flat & Intact -Granulation Amt Small (1-33%) -Granulation Quality Red -Texture (Viri-wound Skin Appearance) Assessed, Scarring -Moisture (Viri-wound Skin Appearance Assessed ) -Color (Viri-wound Skin Appearance) Assessed -Temperature (Viri-wound Skin No Abnormality Appearance) (Pt Warm) -Tenderness on Palpation (Viri-wound No Skin Appearance) -Ulcer Cleansing Rinsed/ Irrigated with Saline -Foul Odor after Cleansing No -Anesthetic Used 4% Lidocaine Solution - Nurse 2 - General Ulcer CM Notes Start: 10/28/19 11:58 Freq: Status: Active Protocol: Activity Type Activity Date Activity User E-Sign Co-Sign Detail Recorded Client Recorded Date Recorded By Document 11/12/19 08:15 MW [id number] 11/12/19 08:16 MW 11/12/19 08:15 Wound Center Nurse 2 [Procedure/Treatment] -Time 08:15 -Correct Patient Yes -Correct Side, Site, Position Yes -Correct Procedure Yes -Procedure Performed No -Post Debridement Size (cm) - Length 0 -Post Debridement Size (cm) - Width 0 -Post Debridement Size (cm) - Depth 0 -Total Square (cm) 0 -Wound/Ulcer Outcome Healed- Epithelialized [See Physician Procedure note for Specifics] Pain Scale: 0-10 Numeric [Pain] -Is Patient Pain Free? Yes Musculoskeletal: No Tenderness to Palpation of Joints or Extremities Lymphatic: No Cervical, Supraclavicular, or Inguinal Adenopathy Neurological: Cranial nerves II-XII grossly intact, Neuro grossly intact Psych/Mental Status: Normal Affect, Appropriate Debridement Note Post-Debridement Measurements/Treatment WC - Nurse 2 - General Ulcer CM Notes Start: 10/28/19 11:58 Freq: Status: Active Protocol: Activity Type Activity Date Activity User E-Sign Co-Sign Detail Recorded Client Recorded Date Recorded By Document 10/28/19 12:53 DV [id number] 10/28/19 13:01 DV Document 11/05/19 08:41 PL [id number] 11/05/19 08:47 PL Document 11/12/19 08:15 MW [id number] 11/12/19 08:16 MW 10/28/19 11/05/19 11/12/19 12:53 08:41 08:15 Wound Center Nurse 2 #1 R [place] -Time 12:54 08:42 08:15 -Correct Patient Yes Yes Yes -Correct Side, Site, Position Yes Yes Yes -Correct Procedure Yes Yes Yes -Procedure Performed Yes Yes No -Type of Procedure Debridement Debridement -Clinical Debridement Subcutaneous Subcutaneous -Post Debridement Size (cm) - Length 3.0 3.0 0 -Post Debridement Size (cm) - Width 3.0 2.7 0 -Post Debridement Size (cm) - Depth 0.3 0.2 0 -Total Square (cm) 9.00 8.10 0 -Wound/Ulcer Outcome Not Healed Not Healed Healed- Epithelialized -Ulcer Cleansing Rinsed/ Rinsed/ Irrigated with Irrigated with Saline Saline -Foul Odor after Cleansing No No -Bioengineered Tissue No -Bleeding Controlled with Pressure Pressure -Offloading No -Treatment Response Procedure Procedure Tolerated Well Tolerated Well Pain Scale: 0-10 Numeric Is Patient Pain Free? Yes Yes Yes No debridement was completed today Assessment/Plan Active Problems (Last Reviewed 12/02/18 @ 08:40 by Trupti Dhillon) Leg wound, right (Acute) Leg swelling (Chronic) Atherosclerosis of coronary artery of [place] heart without angina pectoris (Chronic) CABG x 2 PHAM-LAD and D1 04/25/2002, PTCA to the ostial DIAG#1, 2.25 x 16 Promus Synergy HIGINIO to mid LAD 11/18/18 Obesity (Chronic) Assessment: Right traumatic leg wound resolved. Edema. Nonhealing nonsurgical wound resolved Plan: Discharge from the wound center follow-up as needed
== END 2019-11-14 23:59 ==
LOC: WC 08:00
PROVIDERS: PCP Family Medicine Geriatric Medicine; Referring Provider Family Medicine Geriatric Medicine; Visit Provider Surgery
DX: S80.811A Abrasion, right lower leg, initial encounter (principal); W19.XXXA Unspecified fall, initial encounter; Y93.H9 Activity, other involving exterior property and land maintenance, building and construction; Y92.096 Garden or yard of other non-institutional residence as the place of occurrence of the external cause; E78.5 Hyperlipidemia, unspecified; I25.10 Atherosclerotic heart disease of native coronary artery without angina pectoris; I10 Essential (primary) hypertension; R60.0 Localized edema; M79.89 Other specified soft tissue disorders; Z95.1 Presence of aortocoronary bypass graft; E66.9 Obesity, unspecified; Z68.30 Body mass index [BMI] 30.0-30.9, adult
CPT/HCPCS: 11042; 99213; 99214; G0463

== ENCOUNTER → 2019-12-20 09:04 | Outpatient (CLI) | payer MEDICARE, OTHER, SELFPAY ==
[2018-11-18 13:59] VITALS: BMI 31.4
[2019-12-02 09:32] VITALS: BMI 29.7
--- NOTE | 2019-12-20 09:07 | US_ITS ---
STUDY: SUPERFICIAL ULTRASOUND - LEFT ARM REASON FOR EXAM: Female, 74 years old. LT ARM PALP LUMP TECHNIQUE: A superficial ultrasound was performed with real-time and static mike-scale imaging. COMPARISON: None. FINDINGS: In the area of palpable abnormality (directed by the patient) just below the level of the elbow, there is a focal (1.4 x 1.4 x 1.4 cm isoechoic, smoothly marginated nodule in the subcutaneous fat with matching echogenicity to the adjacent fat. No vascular flow. US/Ext Non Vasc Limited/Soft Tiss IMPRESSION: Small lipoma. Electronically Signed: Lalo Braden MD ([place]) at 12:51 EDT , Service support ,
== END ==
PROVIDERS: PCP Family Medicine Geriatric Medicine; Referring Provider Family Medicine Geriatric Medicine; Visit Provider Family Medicine Geriatric Medicine
DX: R22.9 Localized swelling, mass and lump, unspecified (principal)
CPT/HCPCS: 76882

== ENCOUNTER → 2020-07-23 09:36 | Outpatient (CLI) | payer MEDICARE, OTHER, SELFPAY ==
[2018-11-18 13:59] VITALS: BMI 31.4
[2019-12-02 09:32] VITALS: BMI 29.7
[2020-07-23 13:08] LABS: Vitamin D,25 Hydroxy 30.9 ng/mL
[2020-07-23 13:09] LABS: Anion Gap 5 (5-15); BUN 25 mg/dL (7-18); BUN/Creat Ratio 35.9 RATIO (10-20); Calcium,Total 8.4 mg/dL (8.5-10.1); Chloride 110 mmol/L (98-107); EST Glomerular Filtration Rate 88 mL/min (>60); Est Glom Filt Rate - Afr Amer 106 mL/min (>60); Glucose 92 mg/dL (74-106); Potassium 3.8 mmol/L (3.5-5.1); Sodium Level 140 mmol/L (136-145); T3 Uptake 35 % (30-39); Thyroid Stim Hormone (TSH) 1.86 uIU/mL (0.358-3.74)
== END ==
PROVIDERS: PCP Family Medicine Geriatric Medicine; Visit Provider Family Medicine Geriatric Medicine
DX: E03.9 Hypothyroidism, unspecified (principal); E55.9 Vitamin D deficiency, unspecified; N39.0 Urinary tract infection, site not specified
CPT/HCPCS: 36415; 80048; 82306; 84439; 84443; 84479; 87086; 87088

== ENCOUNTER → 2020-07-28 10:03 | Outpatient (CLI) | payer MEDICARE, OTHER, SELFPAY ==
[2018-11-18 13:59] VITALS: BMI 31.4
[2019-12-02 09:32] VITALS: BMI 29.7
--- NOTE | 2020-07-28 10:16 | RAD_ITS ---
STUDY: X-RAY - LUMBAR SPINE REASON FOR EXAM: Female, 74 years old. LOW BACK PAIN TECHNIQUE: 3 view(s) of the lumbar spine were obtained. COMPARISON: None FINDINGS: Normal lumbar lordosis. There is no substantial scoliosis. There is a normal alignment of the vertebrae. There is multilevel endplate spondylosis of the lumbar vertebrae. There is multi-level degenerative disc disease with multi-level disc space narrowing. There is no demonstrated fracture. There is atherosclerotic calcification of the abdominal aorta without a demonstrated aneurysm. RAD/Lumbar Spine 2 or 3 Views IMPRESSION: Degenerative changes of the spine, as detailed above. Electronically Signed: Bart Spring MD at 10:56 EDT , Service support ,
== END ==
PROVIDERS: PCP Family Medicine Geriatric Medicine; Referring Provider Family Medicine Geriatric Medicine; Visit Provider Family Medicine Geriatric Medicine
DX: M47.816 Spondylosis without myelopathy or radiculopathy, lumbar region (principal); M51.36 Other intervertebral disc degeneration, lumbar region; M48.061 Spinal stenosis, lumbar region without neurogenic claudication
CPT/HCPCS: 72100

== ENCOUNTER 2020-10-13 09:00 | Outpatient (RCR) | payer MEDICARE, OTHER, SELFPAY ==
[2018-11-18 13:59] VITALS: BMI 31.4
[2019-12-02 09:32] VITALS: BMI 29.7
[2020-08-10 10:12] VITALS: BMI 31.3
--- NOTE | 2020-08-16 13:21 | HP.PTEVAL_ITS ---
Patient's Visit Information PADMINI GOYAL is a 74 year old F referred to Physical Therapy by Dr. Nakul Corbin MD with a diagnosis of LOW BACK PAIN. Date of Evaluation: 08/16/20 Physical Therapist: Trav Smith, PT, Cert MDT, OCS - Visit Plan Frequency: 2x /Week Duration: 4 Weeks Plan: PT INTERVENTIONS MODALTIES FOR PAIN,LUMBAR FLEXION EX'S ,DLS ABD/BACK AND LE STRENGTHENING - Subjective This 74 y/o female presents to physical therapy low back pain. Patient has had back pain 1 month fell in [place]. Location right L-S radiates to buttock hams occasionally calf on left side . Aggravating walking , standing, bending affects ADL'S. Alleviating resting and sitting. Patient has appoint to see DR Diaz. Seen DR want to see chiropractor. Patient seen last week gurvnider . Also recommended MEDS gabepetin, tramadol . Denies parathesia/tingling. Bowel/bladder-. Coughing/sneezing -. Sleeping affects pain. Patient uses walker for balance.Patient uses scooter in stores. Patient stays in [place] in Winter.Patient had x-rays DDD. Patient symptoms LBP affects QOL. SOCIAL: . VOCATION: retired - Pain Right Back Pain Intensity (Out of 10): 5 Pain Intensity Range: N/A Right Lower Extremity Pain Intensity (Out of 10): 8 - Objective POSTURE:mild foward posture. GAIT: reciprocal pattern with fww. NEURO: c/o right leg ,reflexes L3-4,L4-5,L5-S1 1/3. SYMMTRIES: align. FLEXABLITY: hams min tight,piriformis mild tight. MMT: quads/hams 3+/5,hip flexion 3/5.hip abd 3-/5,ankle 4-/5. LUMBAR ROM: flexion min/mod loss,extension severe loss with pain - Special Tests L/S Slump test left side: Negative L/S Slump test right side: Negative L/S Left Straight Leg Raise: Negative L/S Right Straight Leg Raise: Negative L/S Degenerative Changes - Quadrant Test: Positive Lumbar Standing: Flexion - Mechanical Response: No effect Lumbar Standing: Flexion - Symptoms During Testing: Decreases Lumbar Standing: Flexion - Symptoms After Testing: No better Lumbar Standing: Extension - Mechanical Response: No effect Lumbar Standing: Extension - Symptoms During Testing: Peripheralizing Lumbar Standing: Extension - Symptoms After Testing: Worse Lumbar Standing: Right Side Glides - Mechanical Response: No effect Lumbar Standing: Right Side [place] - Symptoms During Testing: Increases Lumbar Standing: Right Side [place] - Symptoms After Testing: No worse Lumbar Standing: Left Side [place] - Mechanical Response: No effect Lumbar Standing: Left Side [place] - Symptoms During Testing: No effect Lumbar Standing: Left Side [place] - Symptoms After Testing: No effect Lumbar Lying: Flexion - Mechanical Response: No effect Lumbar Lying: Flexion - Symptoms During Testing: Decreases Lumbar Lying: Flexion - Symptoms After Testing: No better - Goals Goal 1:: I with HEP Goal Time Frame: 4-6 Weeks Goal 2:: Decrease pain right low back and radicular symptoms by 50% or > to improve function Goal Time Frame: 4-6 Weeks Goal 3:: Patient to improve lumbar ROM for function of recovery Goal Time Frame: 4-6 Weeks Goal 4:: Patient to increase strength quads/hams 4-/5 and hip flexion 3+/5 to improve function with walking Goal Time Frame: 4-6 Weeks Goal 5:: Patient to improve back owestry score by 5 points or > to improve function Goal Time Frame: 6-8 Weeks - Rehabilitation Potential Physical Therapy Diagnosis: Patient has lumbar with radicular symptoms right lateral with possible lateral foraminal stenosis with symptoms worse with extension walking and standing but needs walker ,better with sitting along with weakness BLE affects mobility thus benifit from skilled PT Rehabilitation Potential: Good - Anticipated Interventions Patient/Client Instruction: Educate patient on: Condition, Plan of Care For the Purpose of:: To decrease pain, To increase ROM, To improve muscle performance and motor function, To improve ability to perform ADL's, To increase tolerance to activity/condition/position, To improve ability of physical actions for home/community/work/leisure, To improve gait and locomotor functions, To improve health of tissue, To decrease soft tissue restriction, To increase flexibility/ROM, To improve self management Therapeutic Exercise to Include: Strength training, Body mechanics, Postural training, Flexibilty training, Active ROM, Dynamic Lumbar Stabilization Comment: BLE ,LUMBAR FLEXION For the Purpose of:: To decrease pain, To increase ROM, To improve muscle performance and motor function, To improve ability to perform ADL's, To increase tolerance to activity/condition/position, To improve performance and independence with ADL's, To improve ability of physical actions for home/community/work/leisure, To improve health of tissue, To decrease soft tissue restriction, To increase flexibility/ROM, To prevent re-injury TENS: Yes IF ES: Yes Cryotherapy (ice pack, ice massage): Yes Thermo therapy (hot pack): Yes Ultrasound (thermal/non thermal): Yes For the Purpose of:: To decrease pain, To improve nutrient delivery to tissue, To increase oxygenation perfusion, To improve health of tissue, To decrease soft tissue restriction, To increase flexibility/ROM Thank you for the opportunity to evaluate your patient. For Medicare and Medicare HMO plans, please review the plan of care and approve it. It will need to be FAXED BACK to us at [phone] for Medicare purposes. For Medicare only, by signing this I certify the plan of care. Please let me know if there are questions or concerns regarding this plan of care. Physician Signature: Date:
--- NOTE | 2020-09-14 09:52 | HP.PTREVAL ---
Dr. Nakul Corbin MD, It has been my pleasure to treat PADMINI GOYAL over the last 18 visits for LOW BACK PAIN. Please see the progress note below for an update on the physical therapy plan of care! Subjective: Patient is doing better overall ex's going well. Objective/Function: POSTURE: mild forward postural. GAIT: reciprocal pattern FWW with forward posture. NEURO: denies paratheisa/tingling ,reflexes L3-4,L5--S1 1/3. LUMAR ROM: flexion mod loss,extension severe loss. MMT: quads/hams /hip flexion 4-/5 .ankle 4/5 Plan Plan: cont with poc 2xweek for 4 weesk. PT INTERVENTIONS MODALTIES FOR PAIN, LUMBAR FLEXION EX'S, DLS ABD/BACK AND LE STRENGTHENING Goals Goal 1:: I with HEP Goal Time Frame: 4-6 Weeks Goal Progress: Progressing Goal 2:: Decrease pain right low back and radicular symptoms by 50% or > to improve function Goal Time Frame: 4-6 Weeks Goal Progress: Progressing Goal 3:: Patient to improve lumbar ROM for function of recovery Goal Time Frame: 4-6 Weeks Goal Progress: Progressing Goal 4:: Patient to increase strength quads/hams 4-/5 and hip flexion 3+/5 to improve function with walking Goal Time Frame: 4-6 Weeks Goal Progress: Progressing Goal 5:: Patient to improve back owestry score by 5 points or > to improve function Goal Time Frame: 6-8 Weeks Goal Progress: Progressing Anticipated Interventions Patient/Client Instruction: Educate patient on: Condition, Plan of Care For the Purpose of:: To decrease pain, To increase ROM, To improve muscle performance and motor function, To improve ability to perform ADL's, To increase tolerance to activity/condition/position, To improve ability of physical actions for home/community/work/leisure, To improve gait and locomotor functions, To improve health of tissue, To decrease soft tissue restriction, To increase flexibility/ROM, To improve self management Therapeutic Exercise to Include: Strength training, Body mechanics, Postural training, Flexibilty training, Active ROM, Dynamic Lumbar Stabilization Comment: BLE ,LUMBAR FLEXION For the Purpose of:: To decrease pain, To increase ROM, To improve muscle performance and motor function, To improve ability to perform ADL's, To increase tolerance to activity/condition/position, To improve performance and independence with ADL's, To improve ability of physical actions for home/community/work/leisure, To improve health of tissue, To decrease soft tissue restriction, To increase flexibility/ROM, To prevent re-injury TENS: Yes IF ES: Yes Cryotherapy (ice pack, ice massage): Yes Thermo therapy (hot pack): Yes Ultrasound (thermal/non thermal): Yes For the Purpose of:: To decrease pain, To improve nutrient delivery to tissue, To increase oxygenation perfusion, To improve health of tissue, To decrease soft tissue restriction, To increase flexibility/ROM Please do not hesitate to contact me at [phone] by phone or if you have questions or concerns regarding this new plan of care! Sincerely, Trav Smith, PT, Cert MDT, OCS
--- NOTE | 2020-09-20 13:15 | HP.PTREVAL_ITS ---
Dr. Nakul Corbin MD, It has been my pleasure to treat PADMINI GOYAL over the last 11 visits for LOW BACK PAIN. Please see the progress note below for an update on the physical therapy plan of care! Subjective: pt came ready to work for PT. pt had a cramp in her HS and is sore today from that. pt goes to the [facility] on 09/[facility]. Objective/Function: pt was a little more sore today w/ the back extension machine today. pt feels the PROM stretches help the most for pt. Plan Plan: cont with poc 2xweek for 4 weesk. PT INTERVENTIONS MODALTIES FOR PAIN, LUMBAR FLEXION EX'S, DLS ABD/BACK AND LE STRENGTHENING Goals Goal 1:: I with HEP Goal Time Frame: 4-6 Weeks Goal Progress: Progressing Goal 2:: Decrease pain right low back and radicular symptoms by 50% or > to improve function Goal Time Frame: 4-6 Weeks Goal Progress: Progressing Goal 3:: Patient to improve lumbar ROM for function of recovery Goal Time Frame: 4-6 Weeks Goal Progress: Progressing Goal 4:: Patient to increase strength quads/hams 4-/5 and hip flexion 3+/5 to improve function with walking Goal Time Frame: 4-6 Weeks Goal Progress: Progressing Goal 5:: Patient to improve back owestry score by 5 points or > to improve function Goal Time Frame: 6-8 Weeks Goal Progress: Progressing Anticipated Interventions Patient/Client Instruction: Educate patient on: Condition, Plan of Care For the Purpose of:: To decrease pain, To increase ROM, To improve muscle performance and motor function, To improve ability to perform ADL's, To increase tolerance to activity/condition/position, To improve ability of physical actions for home/community/work/leisure, To improve gait and locomotor functions, To improve health of tissue, To decrease soft tissue restriction, To increase flexibility/ROM, To improve self management Therapeutic Exercise to Include: Strength training, Body mechanics, Postural training, Flexibilty training, Active ROM, Dynamic Lumbar Stabilization Comment: BLE ,LUMBAR FLEXION For the Purpose of:: To decrease pain, To increase ROM, To improve muscle performance and motor function, To improve ability to perform ADL's, To increase tolerance to activity/condition/position, To improve performance and independence with ADL's, To improve ability of physical actions for home/community/work/leisure, To improve health of tissue, To decrease soft tissue restriction, To increase flexibility/ROM, To prevent re-injury TENS: Yes IF ES: Yes Cryotherapy (ice pack, ice massage): Yes Thermo therapy (hot pack): Yes Ultrasound (thermal/non thermal): Yes For the Purpose of:: To decrease pain, To improve nutrient delivery to tissue, To increase oxygenation perfusion, To improve health of tissue, To decrease soft tissue restriction, To increase flexibility/ROM Please do not hesitate to contact me at [phone] by phone or if you have questions or concerns regarding this new plan of care! Sincerely, Trav Smith, PT, Cert MDT, OCS
--- NOTE | 2020-10-13 09:22 | HP.PTDCSUM_ITS ---
It has been my pleasure to treat PADMINI GOYAL referred by Dr. Nakul Corbin MD, with the diagnosis of LOW BACK PAIN for a total of 16 visit(s). Discharge Date: 10/13/20 Please see the following information for a summary of their discharge status. Subjective: Doing good no pain except right knee Right Back Pain Intensity (Out of 10): 0 Right Lower Extremity Pain Intensity (Out of 10): 2 % Improvement: 90 Objective/Function: POSTURE: MILD FORWARD POSTURE. GAIT: RECPROCAL PATTERN NO DEVICE IN HOME. COMMMUNITY FWW. LUMBAR ROM: FLEXION MIN/MOD,EXTENSION MIN/MOD,SIDE GLIDES MIN/MOD. MMT: QUADS/HAMS 4/5,HIP FLEXION 4-/5. AROM: 10- 100 SUPINE KNEE FLEXION Goal 1:: I with HEP Goal Progress: Goal Met Goal 2:: Decrease pain right low back and radicular symptoms by 50% or > to improve function Goal Progress: Goal Met Goal 3:: Patient to improve lumbar ROM for function of recovery Goal Progress: Goal Met Goal 4:: Patient to increase strength quads/hams 4-/5 and hip flexion 3+/5 to improve function with walking Goal Progress: Goal Met Goal 5:: Patient to improve back owestry score by 5 points or > to improve function Goal Progress: Goal Met Plan: d/c to hep Discharge Comments: HEP If there are questions or concerns regarding this patient's physical therapy, please feel free to call me at [phone]. Thank you for the referral of this patient. Sincerely, Trav Smith PT, Cert MDT, OCS
== END 2020-10-13 19:00 | disposition home or self-care (01) ==
LOC: PT 09:00
PROVIDERS: PCP Family Medicine Geriatric Medicine; Visit Provider Family Medicine Geriatric Medicine
DX: M54.5 Low back pain (principal)
CPT/HCPCS: 97110; 97162; 97530

== ENCOUNTER → 2020-10-20 09:49 | Outpatient (CLI) | payer MEDICARE, OTHER, SELFPAY ==
[2018-11-18 13:59] VITALS: BMI 31.4
[2020-10-20 09:00] VITALS: BMI 31.3
[2020-10-20 17:19] LABS: Absolute Lymphocyte Count 1.22 X10^3/uL (0.83-4.51); Absolute Neutrophil Count 3.7 X10^3/uL (2.0-7.7); Basophil# 0.03 X10^3/uL; Basophil% 0.5 % (0-1); Eosinophil# 0.11 X10^3/uL; Hemoglobin 11.6 g/dL (12.0-15.0); Lymphocyte # 1.22 X10^3/ul (0.83-4.51); Lymphocyte % 22.3 % (19-41); Mean Corp Hgb Conc 31.4 g/dL (32-36); Mean Corpuscular Hgb 30.9 pg (27.0-32.0); Mean Corpuscular Volume 98.7 fL (81-99); Mean Platelet Vol. 11.4 fl (6.2-12.0); Monocyte# 0.36 X10^3/uL; Monocyte% 6.6 % (0-10); NRBC Flagged by Analyzer 0 % (0-5); Neutrophil # 3.72 X10^3/uL (2.7-7.7); Neutrophil % 68.2 % (47-70); Platelet Count 209 K/mm3 (150-450); RBC Distribution Width CV 13.1 % (11.6-14.6); RBC Distribution Width SD 47.4 fl (35.1-43.9); Red Blood Count 3.75 M/mm3 (4.2-5.4); White Blood Count 5.5 K/mm3 (4.4-11.0)
[2020-10-20 17:33] LABS: Vitamin D,25 Hydroxy 34.8 ng/mL
[2020-10-20 17:40] LABS: ALB/GLOB Ratio 0.9 RATIO (0.9-2.4); AST(SGOT) 18 U/L (15-37); Alanine Aminotransfer ALT/SGPT 25 U/L (13-56); Albumin, Serum 3.2 g/dL (3.2-5.0); Alkaline Phosphatase 91 U/L (45-117); Anion Gap 4 (5-15); BUN 17 mg/dL (7-18); BUN/Creat Ratio 17.6 RATIO (10-20); Calcium,Total 8.3 mg/dL (8.5-10.1); Chloride 103 mmol/L (98-107); Creatinine, Serum 0.97 mg/dL (0.55-1.02); EST Glomerular Filtration Rate 60 mL/min (>60); Est Glom Filt Rate - Afr Amer 73 mL/min (>60); Globulin 3.6 g/dL (2.2-4.2); Glucose 94 mg/dL (74-106); Potassium 4.1 mmol/L (3.5-5.1); Protein, Total 6.8 g/dL (6.4-8.2); Sodium Level 136 mmol/L (136-145); Thyroid Stim Hormone (TSH) 1.03 uIU/mL (0.358-3.74)
== END ==
PROVIDERS: PCP Family Medicine Geriatric Medicine; Visit Provider Family Medicine Geriatric Medicine
DX: E55.9 Vitamin D deficiency, unspecified (principal); I10 Essential (primary) hypertension
CPT/HCPCS: 36415; 80053; 82306; 84443; 85025

== ENCOUNTER → 2021-09-02 | Outpatient (CLI) | payer MEDICARE, SELFPAY ==
[2021-06-06 15:48] VITALS: BMI 31.4
[2021-09-02 12:47] LABS: Absolute Lymphocyte Count 1.05 X10^3/uL (0.83-4.51); Basophil# 0.01 X10^3/uL; Basophil% 0.2 % (0-1); Eosinophil# 0.17 X10^3/uL; Hematocrit 33.4 % (37-47); Hemoglobin 10.5 g/dL (12.0-15.0); Lymphocyte # 1.05 X10^3/ul (0.83-4.51); Lymphocyte % 18.4 % (19-41); Mean Corp Hgb Conc 31.4 g/dL (32-36); Mean Corpuscular Hgb 30.7 pg (27.0-32.0); Mean Corpuscular Volume 97.7 fL (81-99); Mean Platelet Vol. 10.6 fl (6.2-12.0); Monocyte# 0.48 X10^3/uL; Monocyte% 8.4 % (0-10); NRBC Flagged by Analyzer 0 % (0-5); Neutrophil # 3.99 X10^3/uL (2.7-7.7); Neutrophil % 69.7 % (47-70); Platelet Count 315 K/mm3 (150-450); RBC Distribution Width SD 49.9 fl (35.1-43.9); Red Blood Count 3.42 M/mm3 (4.2-5.4); White Blood Count 5.7 K/mm3 (4.4-11.0)
[2021-09-02 13:15] LABS: Anion Gap 7 (5-15); BUN 18 mg/dL (7-18); BUN/Creat Ratio 22.5 RATIO (10-20); Calcium,Total 8.8 mg/dL (8.5-10.1); Chloride 105 mmol/L (98-107); EST Glomerular Filtration Rate 74 mL/min (>60); Est Glom Filt Rate - Afr Amer 90 mL/min (>60); Glucose 118 mg/dL (74-106); Potassium 4.1 mmol/L (3.5-5.1); Sodium Level 139 mmol/L (136-145)
== END | disposition home or self-care (01) ==
LOC: POLAB3 12:03
PROVIDERS: PCP Family Medicine Geriatric Medicine; Visit Provider Family Medicine Geriatric Medicine
DX: E86.0 Dehydration (principal)
CPT/HCPCS: 36415; 80048; 85025

== ENCOUNTER → 2021-09-07 | Outpatient (CLI) | payer MEDICARE, SELFPAY ==
[2021-06-06 15:48] VITALS: BMI 31.4
[2021-09-07 17:18] LABS: Absolute Lymphocyte Count 1.67 X10^3/uL (0.83-4.51); Absolute Neutrophil Count 4.5 X10^3/uL (2.0-7.7); Basophil# 0.04 X10^3/uL; Basophil% 0.6 % (0-1); Eosinophil# 0.09 X10^3/uL; Eosinophils% 1.3 % (0-5); Hematocrit 34.2 % (37-47); Hemoglobin 10.7 g/dL (12.0-15.0); Lymphocyte # 1.67 X10^3/ul (0.83-4.51); Lymphocyte % 24.3 % (19-41); Mean Corp Hgb Conc 31.3 g/dL (32-36); Mean Corpuscular Hgb 30.7 pg (27.0-32.0); Mean Corpuscular Volume 98.3 fL (81-99); Mean Platelet Vol. 10.8 fl (6.2-12.0); Monocyte# 0.42 X10^3/uL; Monocyte% 6.1 % (0-10); NRBC Flagged by Analyzer 0 % (0-5); Neutrophil # 4.53 X10^3/uL (2.7-7.7); Neutrophil % 65.8 % (47-70); Platelet Count 377 K/mm3 (150-450); RBC Distribution Width CV 13.6 % (11.6-14.6); RBC Distribution Width SD 48.3 fl (35.1-43.9); RET-HE 30.5 pg (30-35); Red Blood Count 3.48 M/mm3 (4.2-5.4); Reticulocyte Count 1.88 % (0.5-1.5); White Blood Count 6.9 K/mm3 (4.4-11.0)
[2021-09-07 17:31] LABS: Vitamin B12 233 pg/mL (211-911)
[2021-09-07 17:46] LABS: Ferritin 182 ng/mL (8-252); Iron 44 ug/dL (50-170); Iron Binding Capacity,Total 254 ug/dL (250-450); PERCENT IRON SATURATION 17.3 % (15.0-55.0)
== END | disposition home or self-care (01) ==
LOC: POLAB3 14:42
PROVIDERS: PCP Family Medicine Geriatric Medicine; Visit Provider Family Medicine Geriatric Medicine
DX: D64.9 Anemia, unspecified (principal)
CPT/HCPCS: 36415; 82607; 82728; 82746; 83540; 83550; 85025; 85045

== ENCOUNTER → 2021-09-29 | Outpatient (CLI) | payer MEDICARE, SELFPAY ==
[2021-06-06 15:48] VITALS: BMI 31.4
[2021-09-29 11:53] LABS: Absolute Lymphocyte Count 0.96 X10^3/uL (0.83-4.51); Basophil# 0.02 X10^3/uL; Basophil% 0.5 % (0-1); Eosinophil# 0.17 X10^3/uL; Eosinophils% 3.8 % (0-5); Hematocrit 33.5 % (37-47); Hemoglobin 10.6 g/dL (12.0-15.0); Lymphocyte # 0.96 X10^3/ul (0.83-4.51); Lymphocyte % 21.7 % (19-41); Mean Corp Hgb Conc 31.6 g/dL (32-36); Mean Corpuscular Hgb 30.5 pg (27.0-32.0); Mean Corpuscular Volume 96.3 fL (81-99); Mean Platelet Vol. 11.2 fl (6.2-12.0); Monocyte# 0.29 X10^3/uL; Monocyte% 6.6 % (0-10); NRBC Flagged by Analyzer 0.9 % (0-5); Neutrophil # 2.97 X10^3/uL (2.7-7.7); Neutrophil % 67.2 % (47-70); Platelet Count 227 K/mm3 (150-450); RBC Distribution Width CV 15.1 % (11.6-14.6); RBC Distribution Width SD 52.7 fl (35.1-43.9); Red Blood Count 3.48 M/mm3 (4.2-5.4); White Blood Count 4.4 K/mm3 (4.4-11.0)
[2021-09-29 12:37] LABS: Homocysteine 9.8 umol/L (3.2-10.7)
[2021-10-02 19:49] LABS: Methylmalonic Acid Bld 732 nmol/L (0-378)
== END | disposition home or self-care (01) ==
LOC: POLAB3 11:24
PROVIDERS: PCP Family Medicine Geriatric Medicine; Visit Provider Family Medicine Geriatric Medicine
DX: D51.9 Vitamin B12 deficiency anemia, unspecified (principal); D64.9 Anemia, unspecified
CPT/HCPCS: 36415; 83090; 83921; 85025

== ENCOUNTER → 2021-10-24 | Outpatient (CLI) | payer MEDICARE, SELFPAY ==
[2021-06-06 15:48] VITALS: BMI 31.4
[2021-10-24 17:03] LABS: Absolute Lymphocyte Count 1.18 X10^3/uL (0.83-4.51); Basophil# 0.01 X10^3/uL; Basophil% 0.2 % (0-1); Eosinophil# 0.07 X10^3/uL; Eosinophils% 1.6 % (0-5); Hematocrit 36.7 % (37-47); Hemoglobin 11.7 g/dL (12.0-15.0); Lymphocyte # 1.18 X10^3/ul (0.83-4.51); Lymphocyte % 26.3 % (19-41); Mean Corp Hgb Conc 31.9 g/dL (32-36); Mean Corpuscular Hgb 30.4 pg (27.0-32.0); Mean Corpuscular Volume 95.3 fL (81-99); Mean Platelet Vol. 11.5 fl (6.2-12.0); Monocyte# 0.22 X10^3/uL; Monocyte% 4.9 % (0-10); NRBC Flagged by Analyzer 0 % (0-5); Neutrophil # 2.99 X10^3/uL (2.7-7.7); Neutrophil % 66.8 % (47-70); Platelet Count 219 K/mm3 (150-450); RBC Distribution Width SD 49.1 fl (35.1-43.9); Red Blood Count 3.85 M/mm3 (4.2-5.4); White Blood Count 4.5 K/mm3 (4.4-11.0)
[2021-10-24 17:30] LABS: AST(SGOT) 16 U/L (15-37); Alanine Aminotransfer ALT/SGPT 14 U/L (13-56); Albumin, Serum 3.3 g/dL (3.2-5.0); Alkaline Phosphatase 83 U/L (45-117); Anion Gap 8 (5-15); BUN 13 mg/dL (7-18); Chloride 106 mmol/L (98-107); Creatinine, Serum 0.65 mg/dL (0.55-1.02); EST Glomerular Filtration Rate 94 mL/min (>60); Est Glom Filt Rate - Afr Amer 114 mL/min (>60); Globulin 3.4 g/dL (2.2-4.2); Glucose 100 mg/dL (74-106); Potassium 4.2 mmol/L (3.5-5.1); Protein, Total 6.7 g/dL (6.4-8.2); Sodium Level 140 mmol/L (136-145); Thyroid Stim Hormone (TSH) 7.77 uIU/mL (0.358-3.74)
[2021-10-24 17:34] LABS: Vitamin D,25 Hydroxy 48.9 ng/mL
== END | disposition home or self-care (01) ==
PROVIDERS: PCP Family Medicine Geriatric Medicine; Visit Provider Family Medicine Geriatric Medicine
DX: I10 Essential (primary) hypertension (principal); E55.9 Vitamin D deficiency, unspecified; D64.9 Anemia, unspecified
CPT/HCPCS: 36415; 80053; 82306; 84443; 85025

== ENCOUNTER 2021-11-04 15:17 | Emergency (ER) | payer MEDICARE, SELFPAY ==
[2021-06-06 15:48] VITALS: BMI 31.4
[2021-11-04 15:18] VITALS: BP 128/64; PULSE 56; RESP 16; TEMP 35.8; O2SAT 98; BMI 29.8
--- NOTE | 2021-11-04 15:33 | EKG12_ITS ---
Test Reason : GENERAL Blood Pressure : / mmHG Vent. Rate : 053 BPM Atrial Rate : 053 BPM P-R Int : 146 ms QRS Dur : 088 ms QT Int : 476 ms P-R-T Axes : 075 069 073 degrees QTc Int : 446 ms Sinus bradycardia Otherwise normal ECG Confirmed by ESVIN POOLE, ERIBERTO ([id number]), art editor JO ANN SIMEON ([id number]) on 11/08/2021 9:18:04 AM Referred By: BB Confirmed By:ERIBERTO MCALLISTER MD
--- NOTE | 2021-11-04 15:38 | EX.ED.DYSGE1 ---
HPI History of Present Illness Chief Complaint: General Illness Informant: patient Onset/Context/Timing Onset: Hours (1) Context: Gradual Onset (while sitting outside in partial shade w/ friend, 90-deg midday heat) Timing: Continuous Quality: weak, shaky Location: all over Current Severity: Moderate Maximum Severity: Severe Worsened by: being in heat Relieved by: getting indoors but still weak all over Associated Symptoms Associated Symptoms: a little sob Narrative Narrative: Patient states 2 days ago she had 2 bouts of diarrhea, and her stomach is felt kind of queasy since then although she has had no pain, she did have some nausea and dry heaves once or twice in the past couple days but has had poor appetite and poor p.o. intake including fluids, today she has been out in the heat visiting with a friend although she was in partial shade, she knows she has drank very little fluid today, and feels like her mouth is dry and that she has dehydrated and admits that she is going through emotional hardship because of recent of her , she feels that is contributing to her poor appetite, and she states I know what dehydration feels like, I have not been drinking much fluid in the last couple days, and I feel like I am dehydrated. She does not admit to dyspnea until I asked her about it, she states it feels like she needs to take some deep breaths, she denies any chest discomfort or palpitations. She has felt a little lightheaded when standing, but no near syncopal or syncopal episodes. No focal neurologic symptoms, just feels weak all over. She was sweating a little when she was outside today and did not necessarily stop sweating. She has been urinating normally and states it is not necessarily dark or strong. She has had normal bowel movements since the diarrhea stopped, she had no blood in any of it or melena. No fevers or chills in the last several days. [facility] Medical History Arthritis Atherosclerosis of coronary artery of [place] heart without angina pectoris Depression Essential hypertension Fibromyalgia Hyperlipidemia Obesity Paroxysmal ventricular tachycardia Home Medications gabapentin 300 mg capsule (Neurontin) 900 mg PO BID 07/28/17 [History Last Taken 11/22/18] cholecalciferol (vitamin D3) 25 mcg (1,000 unit) tablet 25 mcg PO DAILY 12/02/19 [History Last Taken Unknown] levothyroxine 100 mcg tablet 100 mcg PO DAILY 12/02/19 [History Last Taken Unknown] simvastatin 20 mg tablet 20 mg PO QPM #90 tabs 01/05/20 [Rx Last Taken Unknown] biotin 10,000 mcg capsule 10,000 mcg PO DAILY 09/27/20 [History Last Taken Unknown] venlafaxine 75 mg capsule,extended release 24 hr 75 mg PO DAILY 09/27/20 [History Last Taken Unknown] carvedilol 6.25 mg tablet (Coreg) 6.25 mg PO BID #180 tabs 12/06/20 [Rx Last Taken Unknown] losartan 25 mg tablet 25 mg PO DAILY 90 days #90 tabs 02/02/21 [Rx Last Taken Unknown] fluoxetine 40 mg capsule (Prozac) 40 mg PO DAILY 11/04/21 [History Last Taken Unknown] omeprazole 20 mg capsule,delayed release 20 mg PO DAILY 11/04/21 [History Last Taken Unknown] Allergy/AdvReac Type Severity Reaction Status Date / Time aspirin Allergy Hives Verified 11/04/21 15:18 crab Allergy Anaphylaxis Verified 11/04/21 15:18 Sulfa (Sulfonamide Allergy Hives Verified 11/04/21 15:18 Antibiotics) sulfamethoxazole Allergy Hives Verified 11/04/21 15:18 [From Bactrim] trimethoprim [From Bactrim] Allergy Hives Verified 11/04/21 15:18 hydrocodone [From Vicodin] AdvReac Upset Verified 11/04/21 15:18 Stomach Family History Father Myocardial infarction age 72 Surgical History H/O coronary artery bypass surgery (04/25/02) History of left heart catheterization (09/27/16) Hx of cholecystectomy Partial traumatic amputation of right foot (~2003) Presence of stent in coronary artery (11/18/18) Social History Smoking Status: Never smoker alcohol intake: never substance use type: does not use what type of physical activity do you participate in: other details: Physical Therapy frequency: 1-2 times per week ROS ROS ED Constitutional Constitutional ED: Reports fatigue and weakness; Denies chills or fever(s) Eyes Eyes: Denies change in vision or diplopia ENT ENT ED: Reports dry mouth; Denies rhinorrhea or sore throat Cardiovascular Cardiovascular: Denies chest pain or palpitations Respiratory/Chest Respiratory/Chest: Reports as per HPI and dyspnea; Denies cough Gastrointestinal Gastrointestinal: Reports as per HPI, anorexia, diarrhea and nausea; Denies abdominal pain or vomiting Genitourinary Genitourinary ED: Denies dysuria or hematuria Musculoskeletal Musculoskeletal: Denies back pain or neck pain Integumentary Denies abscess or rash Neurologic Neurologic: Denies headache(s), paresthesias or weakness Psychiatric Psychiatric: Reports depression; Denies anxiety, suicidal ideation or suicidal thoughts EXAM Physical Exam Const Vital Signs: 11/04/21 15:18 11/04/21 15:25 Temperature 96.4 F L Temperature Source Temporal Pulse Rate 56 L Respiratory Rate 16 Respiratory Pattern Normal Blood Pressure 128/64 H Blood Pressure Mean 85 Pulse Ox 98 Oxygen Delivery Method Room Air Positive well nourished and well developed General Appearance ED: well developed and NAD HEENT Reports moist mucous membranes normocephalic and atraumatic Eyes PERRL and EOMs intact bilaterally Neck full ROM, no lymphadenopathy, supple and thyroid normal Resp normal respiratory effort and clear to auscultation bilaterally Cardio regular rate, regular rhythm and no murmurs Rate: bradycardia GI non-tender and non-distended Auscultation: normoactive bowel sounds Palpation: soft Back/Spine no CVA tenderness General Back: other FROM Extremity normal to inspection General Extremety ED: Yes edema; Negative for pulses abnormal or tenderness General Extremity: edema bilateral lower extremity Details: mild; Negative for pulses abnormal Neuro oriented x3, CN's II-XII intact bilaterally and no sensory deficits noted Sensorium / Orientation: awake and alert Motor Exam: strength 5/5 throughout Psych mental status grossly normal Skin no rashes or lesions noted and no wounds MDM MDM MDM Narrative Medical decision making narrative: Patient was given IV fluids, and reevaluation she feels much better she was ambulatory to and from the bathroom without any significant symptom or change in vital signs. Stable for discharge home, she did have some mild prerenal azotemia/increased ratio, advised to drink more fluids she is agreeable. Lab Data Attestation: I reviewed the patient's lab results. Labs: Laboratory Results - last 24 hr 11/04/21 11/04/21 11/04/21 15:55 15:55 16:45 WBC 5.5 RBC 3.84 L Hgb 11.7 L Hct 36.6 L MCV 95.3 MCH 30.5 MCHC 32.0 RDW Std Deviation 49.4 H RDW Coeff of Belinda 14.0 Plt Count 213 MPV 11.4 Immature Gran % (Auto) 0.200 Neut % (Auto) 64.0 Lymph % (Auto) 27.3 [place] % (Auto) 7.2 Eos % (Auto) 0.9 Baso % (Auto) 0.4 Absolute Neuts (auto) 3.6 Absolute Lymphs (auto) 1.51 Nucleated RBC % 0 Sodium 140 Potassium 4.3 Chloride 107 Carbon Dioxide 28.0 Anion Gap 5 BUN 16 Creatinine 0.73 Estim Creat Clear Calc 45.50 Est GFR (MDRD) Af Amer 99 Est GFR (MDRD) Non-Af 82 BUN/Creatinine Ratio 21.8 H Glucose 108 H Calcium 8.8 Troponin I High Sens 6 Urine Color Yellow Urine Clarity Sl. Cloudy Urine pH 6.5 Ur Specific [place] 1.010 Urine Protein 15 H Urine Glucose (UA) Normal Urine Ketones Negative Urine Occult Blood Negative Urine Nitrite Negative Urine Bilirubin Negative Urine Urobilinogen 1 H Ur Leukocyte Esterase 25 H Urine RBC 0-5 SEEN Urine WBC 0-5 SEEN Ur Squamous Epith Cells 0-5 SEEN Urine Bacteria 0 SEEN Urine Mucus 0 SEEN Radiography Chest X-Ray - ED: 1 View, Read by ED Physician and No Acute Disease Diagnostic Testing: Clinical Impression(s) from Imaging Studies Chest X-Ray 11/04/21 16:10 IMPRESSION: No acute cardiopulmonary process. Electronically Signed: Jb Ramesh MD at 16:27 EDT , Rhythm Strip Rhythm Strip: Sinus Rhythm Rate: 55 Ectopy: None EKG Initial EKG: Attestation: I personally reviewed and interpreted this EKG as follows: Interpretation: No Acute Injury Pattern and Sinus Bradycardia Prior EKG tracings: available for review Prior: Unchanged Discharge Plan Triage Chief Complaint: General Illness ED Provider: Man Rosales Dx/Rx/DC Orders Clinical Impression: Mild dehydration, Malaise, Dyspnea Instructions: ED Dehydration (Adult) Prescriptions: No Action gabapentin [Neurontin] 300 mg capsule 900 mg PO BID cholecalciferol (vitamin D3) 25 mcg (1,000 unit) tablet 25 mcg PO DAILY levothyroxine 100 mcg tablet 100 mcg PO DAILY venlafaxine 75 mg capsule,extended release 24hr 75 mg PO DAILY biotin 10,000 mcg capsule 10,000 mcg PO DAILY fluoxetine [Prozac] 40 mg Capsule 40 mg PO DAILY omeprazole 20 mg capsule,delayed release(DR/EC) 20 mg PO DAILY simvastatin 20 mg tablet 20 mg PO QPM Qty: 90 3RF carvedilol [Coreg] 6.25 mg tablet 6.25 mg PO BID Qty: 180 3RF Rx Instructions: administer with food (meal or snack) losartan 25 mg tablet 25 mg PO DAILY 90 Days Qty: 90 3RF Primary Care Provider: Nakul Corbin Chi Referrals: Nakul Corbin Chi, MD [Primary Care Provider] - 3-5 Days Disposition Disposition: Home, Self Care
--- NOTE | 2021-11-04 16:10 | RAD_ITS ---
STUDY: X-RAY CHEST REASON FOR EXAM: Female, 76 years old. dyspnea TECHNIQUE: 2 views COMPARISON: 01/08/2019 FINDINGS: Cardiomediastinal silhouette is unremarkable. Costophrenic angles are sharp. Lungs are hyperinflated but clear. The trachea is midline. There is no pneumothorax. Sternotomy wires are grossly intact. RAD/Chest PA and Lateral IMPRESSION: No acute cardiopulmonary process. Electronically Signed: Jb Ramesh MD at 16:27 EDT ,
[2021-11-04] MEDS: Ondansetron 4 MG/2 ML Vial IV (16:19)
[2021-11-04 16:29] LABS: Absolute Lymphocyte Count 1.51 X10^3/uL (0.83-4.51); Absolute Neutrophil Count 3.6 X10^3/uL (2.0-7.7); Basophil# 0.02 X10^3/uL; Basophil% 0.4 % (0-1); Eosinophil# 0.05 X10^3/uL; Eosinophils% 0.9 % (0-5); Hematocrit 36.6 % (37-47); Hemoglobin 11.7 g/dL (12.0-15.0); Lymphocyte # 1.51 X10^3/ul (0.83-4.51); Lymphocyte % 27.3 % (19-41); Mean Corpuscular Hgb 30.5 pg (27.0-32.0); Mean Corpuscular Volume 95.3 fL (81-99); Mean Platelet Vol. 11.4 fl (6.2-12.0); Monocyte% 7.2 % (0-10); NRBC Flagged by Analyzer 0 % (0-5); Neutrophil # 3.55 X10^3/uL (2.7-7.7); Platelet Count 213 K/mm3 (150-450); RBC Distribution Width SD 49.4 fl (35.1-43.9); Red Blood Count 3.84 M/mm3 (4.2-5.4); White Blood Count 5.5 K/mm3 (4.4-11.0)
[2021-11-04 16:39] LABS: Anion Gap 5 (5-15); BUN 16 mg/dL (7-18); BUN/Creat Ratio 21.8 RATIO (10-20); Calcium,Total 8.8 mg/dL (8.5-10.1); Chloride 107 mmol/L (98-107); Creatinine, Serum 0.73 mg/dL (0.55-1.02); EST Glomerular Filtration Rate 82 mL/min (>60); Est Glom Filt Rate - Afr Amer 99 mL/min (>60); Glucose 108 mg/dL (74-106); Potassium 4.3 mmol/L (3.5-5.1); Sodium Level 140 mmol/L (136-145); Troponin-I HS 6 pg/mL (3.0-54.0)
[2021-11-04 16:57] LABS: Bacteria 0 SEEN /hpf (None Seen); Mucous, Urine 0 SEEN /hpf (<or=2+)
[2021-11-04 17:04] LABS: Color, Urine Yellow (Yellow); Glucose, Dipstick Normal (Normal); Ketone-Dipstick Negative (Negative); Leukocyte Esterase-Dipstick 25 /ul (Negative); Nitrite-Dipstick Negative (Negative); Occult Blood-Urine Negative /ul (Negative); Protein-Dipstick 15 mg/dl (Negative); Urine Bilirubin Dipstick Negative (Negative); Urine Clarity Sl. Cloudy (Clear); Urine Urobilinogen 1 mg/dl (Normal); Urine pH 6.5 (5.0 - 8.0)
[2021-11-04 17:14] LABS: Red Blood Cells-Urine 0-5 SEEN /hpf (0-5); Squamous Epithelial Cells - UA 0-5 SEEN /hpf (5-10); White Blood Cells 0-5 SEEN /hpf (0-5)
[2021-11-04 19:38] VITALS: BP 121/60; PULSE 80; RESP 18
== END 2021-11-04 19:38 | disposition home or self-care (01) ==
PROVIDERS: Emergency Provider Emergency Medicine; PCP Family Medicine Geriatric Medicine; Visit Provider Emergency Medicine
DX: E86.0 Dehydration (principal); R53.81 Other malaise; R06.00 Dyspnea, unspecified; I25.10 Atherosclerotic heart disease of native coronary artery without angina pectoris; I10 Essential (primary) hypertension; M79.7 Fibromyalgia; M19.90 Unspecified osteoarthritis, unspecified site; E78.5 Hyperlipidemia, unspecified; E66.9 Obesity, unspecified; Z68.29 Body mass index [BMI] 29.0-29.9, adult; Z95.5 Presence of coronary angioplasty implant and graft; Z79.899 Other long term (current) drug therapy
CPT/HCPCS: 71046; 80048; 81001; 84484; 85025; 93005; 96361; 96374; 99284; J7030; A4216; J2405

== ENCOUNTER → 2022-01-13 | Outpatient (CLI) | payer MEDICARE, SELFPAY ==
[2021-06-06 15:48] VITALS: BMI 31.4
--- NOTE | 2022-01-13 12:15 | RAD_ITS ---
INDICATION: PAIN EXAMINATION/TECHNIQUE: X-RAY - AP XR Abdomen 1 View COMPARISON: Abdominal x-rays 02/17/2019 FINDINGS: BOWEL GAS PATTERN: No abnormally distended, air-filled bowel loops or air fluid levels. FREE AIR: Not assessed on a single supine view. ORGANOMEGALY: Not seen. CALCIFICATIONS: No abnormal calcifications observed. LOWER CHEST: No acute pathology. BONES AND SOFT TISSUES: No acute pathology. Benign-appearing linear ossific densities project over the right iliac bone and left iliac crest region are unchanged compared to prior exam from 2019. There are some degenerative changes left, greater than right bilateral hips. Degenerative changes lower lumbar spine. Patient is status post prior cholecystectomy. RAD/Abdomen Single View IMPRESSION: No evidence of acute intra-abdominal pathology on this limited assessment. Chronic osseous findings as above. Electronically Signed: Andre Gutierrez DO at 20:44 EDT ,
[2022-01-13 13:45] LABS: Absolute Lymphocyte Count 1.01 X10^3/uL (0.83-4.51); Absolute Neutrophil Count 4.5 X10^3/uL (2.0-7.7); Basophil# 0.02 X10^3/uL; Basophil% 0.3 % (0-1); Eosinophil# 0.07 X10^3/uL; Eosinophils% 1.2 % (0-5); Hematocrit 35.3 % (37-47); Hemoglobin 11.6 g/dL (12.0-15.0); Lymphocyte # 1.01 X10^3/ul (0.83-4.51); Lymphocyte % 17.1 % (19-41); Mean Corp Hgb Conc 32.9 g/dL (32-36); Mean Corpuscular Hgb 30.9 pg (27.0-32.0); Mean Corpuscular Volume 94.1 fL (81-99); Mean Platelet Vol. 11.4 fl (6.2-12.0); Monocyte# 0.31 X10^3/uL; Monocyte% 5.2 % (0-10); NRBC Flagged by Analyzer 0 % (0-5); Neutrophil # 4.48 X10^3/uL (2.7-7.7); Neutrophil % 75.7 % (47-70); Platelet Count 201 K/mm3 (150-450); RBC Distribution Width CV 12.7 % (11.6-14.6); RBC Distribution Width SD 43.8 fl (35.1-43.9); Red Blood Count 3.75 M/mm3 (4.2-5.4); White Blood Count 5.9 K/mm3 (4.4-11.0)
[2022-01-13 14:02] LABS: Vitamin D,25 Hydroxy 51.4 ng/mL
[2022-01-13 14:11] LABS: ALB/GLOB Ratio 0.9 RATIO (0.9-2.4); AST(SGOT) 12 U/L (15-37); Alanine Aminotransfer ALT/SGPT 13 U/L (13-56); Alkaline Phosphatase 78 U/L (45-117); Anion Gap 7 (5-15); BUN 13 mg/dL (7-18); BUN/Creat Ratio 18.5 RATIO (10-20); Calcium,Total 8.2 mg/dL (8.5-10.1); Chloride 110 mmol/L (98-107); Cholesterol 127 mg/dL (200); EST Glomerular Filtration Rate 86 mL/min (>60); Est Glom Filt Rate - Afr Amer 104 mL/min (>60); Globulin 3.3 g/dL (2.2-4.2); Glucose 96 mg/dL (74-106); High Density Lipoprotein 67 mg/dL; Potassium 4.1 mmol/L (3.5-5.1); Protein, Total 6.3 g/dL (6.4-8.2); Sodium Level 142 mmol/L (136-145); Thyroid Stim Hormone (TSH) 0.35 uIU/mL (0.358-3.74); Triglycerides 96 mg/dL; Very Low Density Lipoprotein 19 mg/dL (5-40)
== END | disposition home or self-care (01) ==
LOC: RAD 12:05
PROVIDERS: PCP Family Medicine Geriatric Medicine; Referring Provider Family Medicine Geriatric Medicine; Visit Provider Family Medicine Geriatric Medicine
DX: R10.9 Unspecified abdominal pain (principal); I10 Essential (primary) hypertension; E78.5 Hyperlipidemia, unspecified; E55.9 Vitamin D deficiency, unspecified
CPT/HCPCS: 36415; 74018; 80053; 80061; 82306; 84443; 85025

== ENCOUNTER 2022-01-18 01:23 | Emergency (ER) | payer MEDICARE, SELFPAY ==
[2021-06-06 15:48] VITALS: BMI 31.4
[2022-01-18 01:24] VITALS: BP 157/61; PULSE 53; RESP 16; TEMP 36.3; O2SAT 97; BMI 29.9
--- NOTE | 2022-01-18 01:58 | RAD_ITS ---
EXAM: XR CHEST, 2 VIEWS CLINICAL INDICATION: weakness TECHNIQUE: Frontal and lateral views of the chest. This report was created using [employer] report generation technology. COMPARISON: 11/04/2021 FINDINGS: LUNGS AND PLEURAL SPACES: Unremarkable. No consolidation or edema. No pneumothorax. No effusion. HEART: Unremarkable. Cardiac silhouette not enlarged. MEDIASTINUM: Surgical changes of the mediastinum. BONES/JOINTS: Unremarkable. SOFT TISSUES: Unremarkable. RAD/Chest PA and Lateral IMPRESSION: No acute findings in the chest. Electronically Signed: Raul Carrasco MD at 2:39 EDT ,
--- NOTE | 2022-01-18 01:58 | EKG12_ITS ---
Test Reason : DYSRHYTHMIA Blood Pressure : / mmHG Vent. Rate : 047 BPM Atrial Rate : 394 BPM P-R Int : 000 ms QRS Dur : 104 ms QT Int : 540 ms P-R-T Axes : 000 055 097 degrees QTc Int : [address] & T wave abnormality, consider lateral ischemia Abnormal ECG Confirmed by ESVIN POOLE, ERIBERTO ([id number]), medical editor JO ANN SIMEON ([id number]) on 01/19/2022 8:05:32 AM Referred By: BB Confirmed By:ERIBERTO MCALLISTER MD
--- NOTE | 2022-01-18 01:59 | EDS_ITS ---
HPI History of Present Illness Chief Complaint: Cold Sx Informant: patient and EMS Narrative Narrative: Patient is a relatively poor historian, but states she feels lightheaded which is worse with standing, and feels dehydrated. When asked why this may be the case, it sounds like she does not drink fluids well, she had a lot of diarrhea last week which has improved but still present occasionally, and she is been very nauseated which makes it hard to eat and drink. She denies any vomiting. She has had some occasional upper abdominal pain that is not present right now, and decreased urinating recently. She was seen in the office last week and had 2 bags of IV fluids and some labs done according to the patient. Lives at home by herself. She had a partial amputation of her right foot and uses a cane but does okay with it. [facility] Medical History Arthritis Atherosclerosis of coronary artery of [place] heart without angina pectoris Depression Essential hypertension Fibromyalgia High cholesterol History of stress test Hyperlipidemia Hypertension Hypothyroidism Obesity Osteoporosis Paroxysmal ventricular tachycardia Home Medications gabapentin 300 mg capsule (Neurontin) 900 mg PO BID 07/28/17 [History Last Taken 11/22/18] cholecalciferol (vitamin D3) 25 mcg (1,000 unit) tablet 25 mcg PO DAILY 12/02/19 [History Last Taken Unknown] levothyroxine 100 mcg tablet 112 mcg PO DAILY 12/02/19 [History Last Taken Unknown] simvastatin 20 mg tablet 20 mg PO QPM #90 tabs 01/05/20 [Rx Last Taken Unknown] losartan 25 mg tablet 25 mg PO DAILY 90 days #90 tabs 02/02/21 [Rx Last Taken Unknown] fluoxetine 40 mg capsule (Prozac) 40 mg PO DAILY 11/04/21 [History Last Taken Unknown] omeprazole 20 mg capsule,delayed release 20 mg PO DAILY 11/04/21 [History Last Taken Unknown] carvedilol 3.125 mg tablet 3.125 mg PO BID #60 tabs 01/18/22 [Rx Last Taken Unknown] ondansetron 4 mg disintegrating tablet 8 mg PO Q8H PRN PRN Nausea #20 tabs 01/18/22 [Rx Last Taken Unknown] Allergy/AdvReac Type Severity Reaction Status Date / Time aspirin Allergy Hives Verified 01/09/22 13:31 crab Allergy Anaphylaxis Verified 01/09/22 13:31 Sulfa (Sulfonamide Allergy Hives Verified 01/09/22 13:31 Antibiotics) sulfamethoxazole Allergy Hives Verified 01/09/22 13:31 [From Bactrim] trimethoprim [From Bactrim] Allergy Hives Verified 01/09/22 13:31 hydrocodone [From Vicodin] AdvReac Upset Verified 01/09/22 13:31 Stomach Family History Father Myocardial infarction age 72 Surgical History (Updated 01/18/22 @ 01:31 by Myriam Darnell) H/O cardiac catheterization H/O coronary artery bypass surgery (04/25/02) History of coronary artery stent placement History of left heart catheterization (09/27/16) Hx of cholecystectomy Partial traumatic amputation of right foot (~2003) Presence of stent in coronary artery (11/18/18) Social History Smoking Status: Never smoker alcohol intake: never substance use type: does not use what type of physical activity do you participate in: other details: Physical Therapy frequency: 1-2 times per week ROS ROS ED Constitutional Constitutional ED: Reports anorexia and malaise; Denies chills or fever(s) Eyes Eyes: Denies change in vision or diplopia ENT ENT ED: Reports rhinorrhea; Denies ear pain or sore throat Cardiovascular Cardiovascular: Reports fatigue, lightheadedness and nausea; Denies chest pain or palpitations Respiratory/Chest Respiratory/Chest: Denies cough or dyspnea Gastrointestinal Gastrointestinal: Reports as per HPI, abdominal pain, diarrhea and nausea; Denies hematemesis, hematochezia, melena or vomiting Genitourinary Genitourinary ED: Denies dysuria or hematuria Musculoskeletal Musculoskeletal: Denies back pain or neck pain Integumentary Denies abscess or rash Neurologic Neurologic: Denies headache(s), paresthesias or weakness Psychiatric Psychiatric: Denies anxiety or suicidal thoughts EXAM Physical Exam Const Vital Signs: 01/18/22 01:24 01/18/22 01:29 01/18/22 02:06 Temperature 97.3 F L Temperature Source Oral Pulse Rate 53 L 46 L Pulse Rate [Lying] Pulse Rate [Sitting (for 1 minute prior to obtaining)] Pulse Rate [Standing (for 1 minute prior to obtaining)] Respiratory Rate 16 17 Respiratory Effort Normal Respiratory Pattern Tachypnea Blood Pressure 157/61 H 173/55 H Blood Pressure [Lying] Blood Pressure [Sitting (for 1 minute prior to obtaining)] Blood Pressure [Standing (for 1 minute prior to obtaining)] Blood Pressure Mean 93 94 Blood Pressure Mean [Lying] Blood Pressure Mean [Sitting (for 1 minute prior to obtaining)] Blood Pressure Mean [Standing (for 1 minute prior to obtaining)] Pulse Ox 97 98 Oxygen Delivery Method Room Air Room Air 01/18/22 03:45 01/18/22 05:34 01/18/22 05:35 Temperature Temperature Source Pulse Rate 65 Pulse Rate [Lying] 62 56 L Pulse Rate [Sitting (for 1 minute prior to obtaining)] 70 61 Pulse Rate [Standing (for 1 minute prior to obtaining)] 94 64 Respiratory Rate Respiratory Effort Respiratory Pattern Blood Pressure 160/59 H Blood Pressure [Lying] 152/57 H 150/59 H Blood Pressure [Sitting (for 1 minute prior to obtaining)] 137/63 H 150/56 H Blood Pressure [Standing (for 1 minute prior to obtaining)] 125/70 H 142/57 H Blood Pressure Mean 92 Blood Pressure Mean [Lying] 88 89 Blood Pressure Mean [Sitting (for 1 minute prior to obtaining)] 87 87 Blood Pressure Mean [Standing (for 1 minute prior to obtaining)] 88 85 Pulse Ox 98 Oxygen Delivery Method Room Air 01/18/22 05:45 Temperature Temperature Source Pulse Rate Pulse Rate [Lying] Pulse Rate [Sitting (for 1 minute prior to obtaining)] Pulse Rate [Standing (for 1 minute prior to obtaining)] Respiratory Rate Respiratory Effort Respiratory Pattern Blood Pressure 158/86 H Blood Pressure [Lying] Blood Pressure [Sitting (for 1 minute prior to obtaining)] Blood Pressure [Standing (for 1 minute prior to obtaining)] Blood Pressure Mean Blood Pressure Mean [Lying] Blood Pressure Mean [Sitting (for 1 minute prior to obtaining)] Blood Pressure Mean [Standing (for 1 minute prior to obtaining)] Pulse Ox Oxygen Delivery Method Positive well nourished and well developed General Appearance ED: well developed and NAD HEENT Reports moist mucous membranes normocephalic and atraumatic Eyes PERRL and EOMs intact bilaterally Neck full ROM and supple Resp normal respiratory effort and clear to auscultation bilaterally Cardio regular rate, regular rhythm and no murmurs Rate: bradycardia GI non-tender and non-distended GI Narrative: Very mild subjective discomfort with palpation in the epigastrium, no objective tenderness. Otherwise benign exam. No pulsatile mass. Auscultation: normoactive bowel sounds Palpation: soft Back/Spine no CVA tenderness General Back: other FROM Extremity normal to inspection Extremity Narrative: Status post right foot transtarsal amputation, well-healed no signs of infection. General Extremety ED: Negative for edema, pulses abnormal or tenderness General Extremity: Negative for edema or pulses abnormal Neuro oriented x3, CN's II-XII intact bilaterally and no sensory deficits noted Sensorium / Orientation: awake and alert Motor Exam: strength 5/5 throughout Psych mental status grossly normal Skin no rashes or lesions noted and no wounds MDM MDM MDM Narrative Medical decision making narrative: I noticed that the patient is somewhat bradycardic around 47 during my evaluation. It appears sinus. I asked her what her normal heart rate is, she does not know. She does have history of coronary disease with stents, she is on carvedilol but low-dose of 6.25 mg twice daily. No other AV homar blockers on her list. Work-up consisted of blood work including CMP and lipase, all of that was unremarkable including her blood counts, she has only a borderline BUN: Creatinine, those numbers are unremarkable at 14 and 0.76 individually. COVID is negative. Chest x-ray 2 views of my interpretation normal/negative, radiology in agreement. She was treated with IV fluids while we were doing his work-up, she felt better afterwards. Her heart rate stayed in the 60s later, and it is possible that she really is not dehydrated and that she is having symptomatic bradycardia. I did an EKG but every time the solar technician tried her tremor would cause artifact, but it does appear to show a sinus rhythm on the monitor. We did orthostatics after she had about half of the fluid, she felt initially lightheaded which quickly passed and they were borderline positive, with her heart rate increasing from 62-94 and her systolic blood pressure dropping from 157-125. We observed her a while longer and allowed her to get the rest of the liter of IV fluids and then we rechecked her and repeat orthostatics were negative. At this time I think would be reasonable to decrease her carvedilol in half and advised her to follow-up as an outpatient. She is comfortable with that plan. Patient waited for the rest of the rn night for a ride home and prior to leaving she ended up having some dry heaving. We treated this with Zofran which had already prescribed her, and it helped. She ambulated to the exit to get her ride. She is following up with her PCP today later. I advised her to hold this morning's dose of carvedilol and then start with the new dose in the evening and she is comfortable with doing that. Lab Data Attestation: I reviewed the patient's lab results. Labs: Laboratory Results - last 24 hr 01/18/22 01/18/22 01/18/22 01:47 01:47 03:56 WBC 6.4 RBC 4.06 L Hgb 12.3 Hct 37.7 MCV 92.9 MCH 30.3 MCHC 32.6 RDW Std Deviation 42.7 RDW Coeff of [place] 12.6 Plt Count 209 MPV 11.0 Immature Gran % (Auto) 0.300 Neut % (Auto) 56.3 Lymph % (Auto) 33.6 [place] % (Auto) 7.7 Eos % (Auto) 1.6 Baso % (Auto) 0.5 Absolute Neuts (auto) 3.6 Absolute Lymphs (auto) 2.15 Nucleated RBC % 0 Sodium 140 Potassium 3.7 Chloride 107 Carbon Dioxide 25.0 Anion Gap 8 BUN 14 Creatinine 0.76 Estim Creat Clear Calc 45.50 Est GFR (MDRD) Af Amer 95 Est GFR (MDRD) Non-Af 79 BUN/Creatinine Ratio 18.4 Glucose 101 Calcium 9.0 Total Bilirubin 0.70 AST 10 L ALT 12 L Alkaline Phosphatase 73 Troponin I High Sens 9 Total Protein 6.6 Albumin 3.2 Globulin 3.4 Albumin/Globulin Ratio 0.9 Lipase 100 Urine Color Yellow Urine Clarity Clear Urine pH 7.0 Ur Specific [place] 1.010 Urine Protein 15 H Urine Glucose (UA) Normal Urine Ketones 50 H Urine Occult Blood Negative Urine Nitrite Negative Urine Bilirubin Negative Urine Urobilinogen 1 H Ur Leukocyte Esterase 100 H Urine RBC 0 SEEN Urine WBC 0-5 SEEN Ur Squamous Epith Cells 0-5 SEEN Urine Bacteria RARE Urine Mucus RARE Radiography Diagnostic Testing: Clinical Impression(s) from Imaging Studies Chest X-Ray 01/18/22 01:58 IMPRESSION: No acute findings in the chest. Electronically Signed: Raul Carrasco MD at 2:39 EDT , Rhythm Strip Rhythm Strip: Sinus bradycardia Rate: 47 Ectopy: None EKG Initial EKG: Attestation: I personally reviewed and interpreted this EKG as follows: Interpretation: No Acute Injury Pattern and Sinus Bradycardia (No other acute abnormality but significant tremor artifact present) Discharge Plan Triage Chief Complaint: Cold Sx ED Provider: Man Rosales Dx/Rx/DC Orders Clinical Impression: Lightheadedness, Bradycardia, Mild dehydration Instructions: ED Bradycardia Prescriptions: New ondansetron [ondansetron] 4 MG tablet 8 mg PO Q8H PRN PRN (Reason: Nausea) Qty: 20 0RF carvedilol 3.125 mg tablet 3.125 mg PO BID Qty: 60 0RF Rx Instructions: must administer with a meal/food Continued gabapentin [Neurontin] 300 mg capsule 900 mg PO BID cholecalciferol (vitamin D3) 25 mcg (1,000 unit) tablet 25 mcg PO DAILY levothyroxine 100 mcg tablet 112 mcg PO DAILY fluoxetine [Prozac] 40 mg Capsule 40 mg PO DAILY omeprazole 20 mg capsule,delayed release(DR/EC) 20 mg PO DAILY simvastatin 20 mg tablet 20 mg PO QPM Qty: 90 3RF losartan 25 mg tablet 25 mg PO DAILY 90 Days Qty: 90 3RF Discontinued carvedilol [Coreg] 6.25 mg tablet 6.25 mg PO BID Qty: 180 3RF Rx Instructions: administer with food (meal or snack) Primary Care Provider: Nakul Corbin Chi Referrals: Nakul Corbin Chi, MD [Primary Care Provider] - 1-2 Days if not improving Disposition Disposition: Home, Self Care
[2022-01-18] MEDS: 0.9% Normal Saline 1,000 ML 1000 ML IV (02:05)
[2022-01-18] MEDS: Ondansetron 4 MG/2 ML Vial IV ×2 (02:05→07:17)
[2022-01-18 02:06] VITALS: BP 173/55; PULSE 46; RESP 17; O2SAT 98
[2022-01-18 02:08] LABS: Absolute Lymphocyte Count 2.15 X10^3/uL (0.83-4.51); Absolute Neutrophil Count 3.6 X10^3/uL (2.0-7.7); Basophil# 0.03 X10^3/uL; Basophil% 0.5 % (0-1); Eosinophils% 1.6 % (0-5); Hematocrit 37.7 % (37-47); Hemoglobin 12.3 g/dL (12.0-15.0); Lymphocyte # 2.15 X10^3/ul (0.83-4.51); Lymphocyte % 33.6 % (19-41); Mean Corp Hgb Conc 32.6 g/dL (32-36); Mean Corpuscular Hgb 30.3 pg (27.0-32.0); Mean Corpuscular Volume 92.9 fL (81-99); Monocyte# 0.49 X10^3/uL; Monocyte% 7.7 % (0-10); NRBC Flagged by Analyzer 0 % (0-5); Neutrophil # 3.61 X10^3/uL (2.7-7.7); Neutrophil % 56.3 % (47-70); Platelet Count 209 K/mm3 (150-450); RBC Distribution Width CV 12.6 % (11.6-14.6); RBC Distribution Width SD 42.7 fl (35.1-43.9); Red Blood Count 4.06 M/mm3 (4.2-5.4); White Blood Count 6.4 K/mm3 (4.4-11.0)
[2022-01-18 02:27] LABS: ALB/GLOB Ratio 0.9 RATIO (0.9-2.4); AST(SGOT) 10 U/L (15-37); Alanine Aminotransfer ALT/SGPT 12 U/L (13-56); Albumin, Serum 3.2 g/dL (3.2-5.0); Alkaline Phosphatase 73 U/L (45-117); Anion Gap 8 (5-15); BUN 14 mg/dL (7-18); BUN/Creat Ratio 18.4 RATIO (10-20); Chloride 107 mmol/L (98-107); Creatinine, Serum 0.76 mg/dL (0.55-1.02); EST Glomerular Filtration Rate 79 mL/min (>60); Est Glom Filt Rate - Afr Amer 95 mL/min (>60); Globulin 3.4 g/dL (2.2-4.2); Glucose 101 mg/dL (74-106); Lipase 100 U/L (73-393); Potassium 3.7 mmol/L (3.5-5.1); Protein, Total 6.6 g/dL (6.4-8.2); Sodium Level 140 mmol/L (136-145); Troponin-I HS 9 pg/mL (3.0-54.0)
[2022-01-18 03:45] VITALS: BP 125/70; BP 137/63; BP 152/57; PULSE 62; PULSE 70; PULSE 94
[2022-01-18 04:01] LABS: Red Blood Cells-Urine 0 SEEN /hpf (0-5)
[2022-01-18 04:02] LABS: Color, Urine Yellow (Yellow); Glucose, Dipstick Normal (Normal); Ketone-Dipstick 50 mg/dl (Negative); Leukocyte Esterase-Dipstick 100 /ul (Negative); Nitrite-Dipstick Negative (Negative); Occult Blood-Urine Negative /ul (Negative); Protein-Dipstick 15 mg/dl (Negative); Urine Bilirubin Dipstick Negative (Negative); Urine Clarity Clear (Clear); Urine Urobilinogen 1 mg/dl (Normal)
[2022-01-18 04:17] LABS: Bacteria RARE /hpf (None Seen); Mucous, Urine RARE /hpf (<or=2+); Squamous Epithelial Cells - UA 0-5 SEEN /hpf (5-10); White Blood Cells 0-5 SEEN /hpf (0-5)
[2022-01-18 05:34] VITALS: BP 160/59; PULSE 65; O2SAT 98
[2022-01-18 05:35] VITALS: BP 142/57; BP 150/56; BP 150/59; PULSE 56; PULSE 61; PULSE 64
[2022-01-18 05:45] VITALS: BP 158/86
== END 2022-01-18 07:18 | disposition home or self-care (01) ==
PROVIDERS: Emergency Provider Emergency Medicine; PCP Family Medicine Geriatric Medicine; Visit Provider Emergency Medicine
DX: R42 Dizziness and giddiness (principal); R00.1 Bradycardia, unspecified; E86.0 Dehydration; I25.10 Atherosclerotic heart disease of native coronary artery without angina pectoris; I10 Essential (primary) hypertension; E78.00 Pure hypercholesterolemia, unspecified; E03.9 Hypothyroidism, unspecified; M79.7 Fibromyalgia; R11.0 Nausea; Z95.1 Presence of aortocoronary bypass graft; Z95.5 Presence of coronary angioplasty implant and graft; Z79.899 Other long term (current) drug therapy
CPT/HCPCS: 36415; 71046; 80053; 81001; 82550; 83690; 83874; 84484; 85025; 87086; 87088; 87811; 93005; 96361; 96374; 96376; 99285; A4216; J2405

== ENCOUNTER → 2022-01-18 | Outpatient (CLI) | payer MEDICARE, SELFPAY ==
[2021-06-06 15:48] VITALS: BMI 31.4
[2022-01-18 18:09] LABS: CPK Total, Creatine Kinase 76 U/L (26-192); Troponin-I HS 11 pg/mL (3.0-54.0)
[2022-01-20 15:43] LABS: Myoglobin, Serum 54 ng/mL (25-58)
== END | disposition home or self-care (01) ==
LOC: POLAB3 14:10
PROVIDERS: PCP Family Medicine Geriatric Medicine; Visit Provider Family Medicine Geriatric Medicine
DX: R07.9 Chest pain, unspecified (principal); N39.0 Urinary tract infection, site not specified
CPT/HCPCS: 36415; 82550; 83874; 84484; 87086

== ENCOUNTER → 2022-01-19 | Outpatient (CLI) | payer MEDICARE, SELFPAY ==
[2021-06-06 15:48] VITALS: BMI 31.4
[2022-01-19 17:50] LABS: CPK Total, Creatine Kinase 117 U/L (26-192); Troponin-I HS 10 pg/mL (3.0-54.0)
[2022-01-21 10:32] LABS: Myoglobin, Serum 79 ng/mL (25-58)
== END | disposition home or self-care (01) ==
LOC: POLAB3 16:26
PROVIDERS: PCP Family Medicine Geriatric Medicine; Visit Provider Family Medicine Geriatric Medicine
DX: R07.9 Chest pain, unspecified (principal)
CPT/HCPCS: 36415; 82550; 83874; 84484

== ENCOUNTER → 2022-08-08 | Outpatient (CLI) | payer MEDICARE, SELFPAY ==
[2021-06-06 15:48] VITALS: BMI 31.4
[2022-08-08 16:48] LABS: Absolute Neutrophil Count 3.6 X10^3/uL (2.0-7.7); Basophil# 0.02 X10^3/uL; Basophil% 0.3 % (0-1); Eosinophil# 0.15 X10^3/uL; Eosinophils% 2.6 % (0-5); Hematocrit 39.1 % (37-47); Hemoglobin 12.2 g/dL (12.0-15.0); Lymphocyte % 27.9 % (19-41); Mean Corp Hgb Conc 31.2 g/dL (32-36); Mean Corpuscular Hgb 30.9 pg (27.0-32.0); Mean Platelet Vol. 11.2 fl (6.2-12.0); Monocyte# 0.37 X10^3/uL; Monocyte% 6.4 % (0-10); NRBC Flagged by Analyzer 0 % (0-5); Neutrophil # 3.59 X10^3/uL (2.7-7.7); Neutrophil % 62.6 % (47-70); Platelet Count 245 K/mm3 (150-450); RBC Distribution Width CV 12.8 % (11.6-14.6); RBC Distribution Width SD 46.8 fl (35.1-43.9); Red Blood Count 3.95 M/mm3 (4.2-5.4); White Blood Count 5.7 K/mm3 (4.4-11.0)
[2022-08-08 17:03] LABS: ALB/GLOB Ratio 0.9 RATIO (0.9-2.4); AST(SGOT) 20 U/L (15-37); Alanine Aminotransfer ALT/SGPT 24 U/L (13-56); Albumin, Serum 3.3 g/dL (3.2-5.0); Alkaline Phosphatase 90 U/L (45-117); Anion Gap 3 (5-15); BUN 19 mg/dL (7-18); BUN/Creat Ratio 21.9 RATIO (10-20); Calcium,Total 8.5 mg/dL (8.5-10.1); Chloride 107 mmol/L (98-107); Creatinine, Serum 0.87 mg/dL (0.55-1.02); EST Glomerular Filtration Rate 68 mL/min (>60); Est Glom Filt Rate - Afr Amer 82 mL/min (>60); Globulin 3.6 g/dL (2.2-4.2); Glucose 96 mg/dL (74-106); Potassium 4.9 mmol/L (3.5-5.1); Protein, Total 6.9 g/dL (6.4-8.2); Sodium Level 135 mmol/L (136-145); Thyroid Stim Hormone (TSH) 0.01 uIU/mL (0.358-3.74)
[2022-08-08 17:14] LABS: Vitamin D,25 Hydroxy 62.6 ng/mL
== END | disposition home or self-care (01) ==
LOC: POLAB3 14:36
PROVIDERS: PCP Family Medicine Geriatric Medicine; Visit Provider Family Medicine Geriatric Medicine
DX: N39.0 Urinary tract infection, site not specified (principal); I10 Essential (primary) hypertension; E55.9 Vitamin D deficiency, unspecified
CPT/HCPCS: 36415; 80053; 82306; 84443; 85025; 87086; 87088; 87186

== ENCOUNTER → 2022-10-19 | Outpatient (CLI) | payer MEDICARE, SELFPAY ==
[2021-06-06 15:48] VITALS: BMI 31.4
[2022-10-19 10:30] LABS: Absolute Lymphocyte Count 1.08 X10^3/uL (0.83-4.51); Absolute Neutrophil Count 3.4 X10^3/uL (2.0-7.7); Basophil# 0.03 X10^3/uL; Basophil% 0.6 % (0-1); Eosinophil# 0.09 X10^3/uL; Eosinophils% 1.8 % (0-5); Hematocrit 34.4 % (37-47); Hemoglobin 11.3 g/dL (12.0-15.0); Lymphocyte # 1.08 X10^3/ul (0.83-4.51); Lymphocyte % 21.7 % (19-41); Mean Corp Hgb Conc 32.8 g/dL (32-36); Mean Corpuscular Hgb 31.4 pg (27.0-32.0); Mean Corpuscular Volume 95.6 fL (81-99); Mean Platelet Vol. 10.8 fl (6.2-12.0); Monocyte# 0.34 X10^3/uL; Monocyte% 6.8 % (0-10); NRBC Flagged by Analyzer 0 % (0-5); Neutrophil # 3.42 X10^3/uL (2.7-7.7); Neutrophil % 68.9 % (47-70); Platelet Count 244 K/mm3 (150-450); RBC Distribution Width CV 13.8 % (11.6-14.6); RBC Distribution Width SD 48.4 fl (35.1-43.9)
[2022-10-19 10:55] LABS: ALB/GLOB Ratio 0.9 RATIO (0.9-2.4); AST(SGOT) 17 U/L (15-37); Alanine Aminotransfer ALT/SGPT 16 U/L (13-56); Albumin, Serum 3.2 g/dL (3.2-5.0); Alkaline Phosphatase 84 U/L (45-117); Anion Gap 6 (5-15); BUN 24 mg/dL (7-18); BUN/Creat Ratio 23.5 RATIO (10-20); Calcium,Total 8.4 mg/dL (8.5-10.1); Chloride 107 mmol/L (98-107); Creatinine, Serum 1.02 mg/dL (0.55-1.02); EST Glomerular Filtration Rate 56 mL/min (>60); Est Glom Filt Rate - Afr Amer 68 mL/min (>60); Globulin 3.5 g/dL (2.2-4.2); Glucose 93 mg/dL (74-106); Potassium 4.5 mmol/L (3.5-5.1); Protein, Total 6.7 g/dL (6.4-8.2); Sodium Level 137 mmol/L (136-145)
== END | disposition home or self-care (01) ==
LOC: LAB.FUTURE 09:47 → POLAB3 10-20 07:56
PROVIDERS: PCP Family Medicine Geriatric Medicine; Visit Provider Family Medicine Geriatric Medicine
DX: E03.9 Hypothyroidism, unspecified (principal)
CPT/HCPCS: 36415; 80053; 85025